=== PATIENT | female | born 1950 | race Caucasian/White ===

== ENCOUNTER 2019-03-27 13:53 | Outpatient (CLI) | payer MEDICARE, SELFPAY ==
--- NOTE | ~2019-03-27 | CT_ITS ---
EXAMINATION: CT brain wo con EXAM DATE: 03/27/2019 14:32 INDICATION: Dizziness. Ataxia. TECHNIQUE: Spiral CT of the head was performed without contrast. Axial, coronal and sagittal images were reviewed. The dose-length product (DLP) for this examination was 605.33 mGy-cm. The exposure w as tailored according to patient size, and iterative reconstruction (ASIR) was used as additional dos e reduction technique. There is no prior study for comparison. FINDINGS: There is no acute intraparenchymal hemorrhage. No evidence of intraparenchymal brain mass lesion. No evidence of acute infarction. There is no mass effect or midline shift. The ventricles are normal in size. There are no extra-axial collections. There are no acute calvarial fractures. T he orbits are unremarkable. Soft tissue is unremarkable. The visualized sinuses and mastoid air lu ls are well aerated. IMPRESSION: 1. Unremarkable head CT examination. Reviewed, dictated and finalized at location B. GAGE CLOSER
== END 2019-03-27 13:54 | disposition home or self-care (01) ==
PROVIDERS: PCP Family Medicine; Visit Provider Physician Assistant
DX: R27.0 Ataxia, unspecified (principal); H81.13 Benign paroxysmal vertigo, bilateral
CPT/HCPCS: 70450

== ENCOUNTER 2019-04-02 11:33 | Emergency (ER) | payer MEDICARE, SELFPAY ==
--- NOTE | ~2019-04-02 | XR_ITS ---
XR chest 2V DATE: 04/02/2019 12:10 INDICATION: Productive cough for 2 weeks. Nonsmoker. TECHNIQUE: 2 views COMPARISON: 04/01/2006 2 view chest FINDINGS: Normal heart size. Aortic arch calcification. No hilar or mediastinal enlargement. There is chronic discoid scarring in the lateral costophrenic angle area, left lung base. No pulmonary in filtrate or consolidation, pulmonary vascular congestion or pleural effusion or pneumothorax. There is diffuse idiopathic skeletal hyperostosis. IMPRESSION: Chronic discoid scarring in the lateral left lung base No active cardiopulmonary disease or significant change since 04/02/2006 Diffuse idiopathic skeletal hyperostosis of the thoracic spine Reviewed, dictated and finalized at location B. TAL ART DIRECTOR
[2019-04-02 11:42] VITALS: BP 134/68; PULSE 76; RESP 16; TEMP 35.9; O2SAT 97
--- NOTE | 2019-04-02 11:56 | ED.URI ---
HPI - URI/Sore Throat General Chief Complaint: Upper Respiratory Infection Stated Complaint: Cough/Mucus/Weakness/ Time Seen by Provider: 04/02/19 11:57 Source: patient and RN notes reviewed Mode of arrival: ambulatory Limitations: no limitations History of Present Illness HPI Narrative: 68 year old female who presents to express care with complaints of 2 week history of productive cough of yellowish mucous, is wheezing and has some dyspnea with exertion. Patient states that she has has history of bronchitis and has used inhaler before, states is nonsmoker with previous history of tobacco use of which cessation was over 35 years ago. Patient had recent hospitalization for cardiac event with cardiac cath performed with no blockages or stents required, has follow up with cardiology on Saturday.Patient denies any chest pain or pressure or any palpitations, no peripheral edema present. MD elicited complaint: cough and rhinorrhea Pertinent past history: pneumonia, seasonal allergies and other (bronchitis) Onset (ago): week(s) (2) Consistency: constant Severity: similar to previous episodes Description of mucous: yellow Able to tolerate fluids by mouth: Yes Exacerbating factors: exertion and deep breaths Relieving factors: nothing Context: recent hospitalization Associated symptoms: rhinorrhea and cough Treatments prior to arrival: other (cough drops) Related Data Home Medications Medication Instructions Recorded Confirmed cetirizine 5 mg-pseudoephedrine ER 1 tablet PO Q12H PRN 01/07/19 03/24/19 120 mg tablet,extended release,12hr cyanocobalamin (vitamin B-12) 1,000 mcg IM .Q2W ml 01/07/19 03/24/19 1,000 mcg/mL injection solution duloxetine 60 mg capsule,delayed 60 mg PO BID 01/07/19 03/24/19 release lamotrigine 100 mg tablet 100 mg PO BID 01/07/19 03/24/19 lorazepam 1 mg tablet 1 mg PO BID PRN 01/07/19 03/24/19 losartan 50 mg tablet 50 mg PO BID 01/07/19 03/24/19 metoprolol succinate 25 mg 12.5 mg PO DAILY tablet 03/24/19 03/24/19 tablet,extended release 24 hr aspirin 04/02/19 buspirone mg 04/02/19 cholecalciferol (vitamin D3) 04/02/19 04/02/19 [Vitamin D3] ezetimibe mg 04/02/19 nitroglycerin mg 04/02/19 Allergies Allergy/AdvReac Type Severity Reaction Status Date / Time codeine Allergy Unknown Dermatitis, Verified 01/29/19 07:06 ITCHING, SHAKEY fentanyl AdvReac Unknown SHAKINESS, Verified 01/29/19 07:06 AGITATION ioversol AdvReac Unknown Dermatitis Verified 01/29/19 07:06 meperidine AdvReac Unknown NAUSEA/VOMI Verified 01/29/19 07:06 TING Contrast Media AdvReac Unknown Unknown Uncoded 01/28/19 08:58 Review of Systems Review of Systems: Narrative: CONSTITUTIONAL: Unknown if fever, chills, or sweats. EYES: Denies visual changes, redness, or discharge. ENT: Positive rhinorrhea, congestion, no sore throat, or otalgia. CARDIOVASCULAR: Denies chest pain, palpitations, or edema. RESPIRATORY: Positive productive cough and dyspnea with exertion GASTROINTESTINAL: Denies abdominal pain, nausea, vomiting, or diarrhea. GENITOURINARY: Denies dysuria or hematuria. SKIN: Denies rash or itching. MUSCULOSKELETAL: states history of back pain, joint pain, or myalgia has arthritis generalized NEUROLOGIC: Denies headache, numbness, or weakness. PSYCHIATRIC:Positive history of anxiety or depression. 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
== END 2019-04-02 12:42 | disposition home or self-care (01) ==
PROVIDERS: Emergency Provider Registered Nurse; PCP Family Medicine
DX: J06.9 Acute upper respiratory infection, unspecified (principal); E11.9 Type 2 diabetes mellitus without complications; E78.5 Hyperlipidemia, unspecified; I10 Essential (primary) hypertension; I51.81 Takotsubo syndrome
CPT/HCPCS: 71046; 99213; G0463

== ENCOUNTER 2020-02-20 06:48 | Outpatient (NON) | payer MEDICARE, SELFPAY ==
[2020-02-20 23:39] LABS: SARS-CoV-2 RNA PCR Positive
== END 2020-02-20 06:49 ==
PROVIDERS: PCP Family Medicine; Visit Provider Family Medicine
DX: U07.1 COVID-19 (principal)
CPT/HCPCS: C9803; U0003

== ENCOUNTER 2020-02-26 13:30 | Outpatient (RCR) | payer MEDICARE, SELFPAY ==
--- NOTE | 2020-02-25 11:55 | PC.NURSE ---
Education and instructions given to patient on Bamlanivimab. Patient has no further questions but was informed to call if any arose.
[2020-02-26] MEDS: FAMOTIDINE 20 MG TABLET PO (13:13)
[2020-02-26] MEDS: diphenhydrAMINE HCl CAP 25 MG CAPSULE PO (13:13)
[2020-02-26] MEDS: ACETAMINOPHEN 325 MG TABLET 650 MG PO (13:13)
[2020-02-26 13:22] VITALS: BP 157/68; PULSE 76; RESP 18; TEMP 36.6; O2SAT 98
[2020-02-26 15:11] VITALS: BP 151/77; PULSE 73; RESP 18; TEMP 37.3; O2SAT 98
--- NOTE | 2020-02-29 14:41 | PC.NURSE ---
Called patient to follow up with after infusion. She stated that the only symptom that she is having is extreme fatigue. Patient she has a follow up appointment with her primary care physician on Saturday.
== END 2020-03-07 11:22 ==
LOC: AMCINF 13:30
PROVIDERS: PCP Family Medicine; Visit Provider Family Medicine
DX: Z23 Encounter for immunization (principal); U07.1 COVID-19; I10 Essential (primary) hypertension; I51.9 Heart disease, unspecified; Z87.891 Personal history of nicotine dependence
CPT/HCPCS: A9270; J7050; M0239; Q0239

== ENCOUNTER 2020-05-31 14:46 | Observation (INO) | payer MEDICARE, SELFPAY ==
[2020-05-31] VITALS (8 sets, daily range): BP systolic 120–153; BP diastolic 56–84; PULSE 64–93; RESP 17–20; TEMP 36.2–36.9; O2SAT 95–100; BMI 35.1
--- NOTE | ~2020-05-31 | CT_ITS ---
EXAMINATION: CT abdomen pelvis wo con DATE: 05/31/2020 16:35 INDICATION: Nausea, vomiting, and diarrhea. TECHNIQUE: Computed tomography (CT) of the abdomen and pelvis was performed without intravenous contr ast. Automated exposure control and iterative reconstruction technique were employed. The dose-length product was 1316.39 mGy-cm. COMPARISON: CT abdomen and pelvis 12/09/2018 FINDINGS: The visualized portions of the lung bases demonstrate mild atelectasis. No pleural effusion . The heart size is normal. There is a small pericardial effusion, stable from 12/09/2018. There is a small sliding hiatal hernia. There is diffuse hepatic steatosis. There is a chronic 11 mm cystic les ion with peripheral calcifications in the spleen, likely benign. The pancreas and adrenal glands are normal. There is an 8 mm cyst in right kidney. Left kidney is normal. There is no urolithiasis. There are no dilated loops of bowel. There is mild wall thickening of ascending colon with surrounding fat stranding, consistent with colitis. There are no pathologically enlarged lymph nodes. There is no fr ee intraperitoneal fluid. There is lumbar levocurvature and severe spondylosis. IMPRESSION: 1. Mild ascending colitis. 2. Small sliding hiatal hernia. 3. Diffuse hepatic steatosis. Reviewed, dictated and finalized at location B.
--- NOTE | 2020-05-31 15:30 | ED.GENADULT ---
HPI - General Adult General Chief complaint: Abdominal Pain Stated complaint: abd pain Time Seen by Provider: 05/31/20 14:59 Source: patient History of Present Illness HPI narrative: Patient is a 69 y/o female complaining right sided abdominal pain starting 3 day ago. She describes her pain as pulling and rates it as 7/10. She states and standing and moving aggravates her pain. She also has some vomiting and diarrhea. She states that she contacted her PCP and was told to come to ED for evaluation of possible diverticulilitis. Related Data Home Medications Medication Instructions Recorded Confirmed aspirin 81 mg PO HS 04/02/19 05/31/20 cholecalciferol (vitamin D3) 125 5,000 unit PO DAILY tablet 06/17/19 05/31/20 mcg (5,000 unit) tablet nitroglycerin 0.4 mg sublingual 0.4 mg SUBLINGUAL Q5M PRN tablet 06/17/19 05/31/20 tablet cariprazine [Vraylar] 1.5 mg PO DAILY 02/26/20 05/31/20 zinc 50 mg PO DAILY 02/26/20 05/31/20 escitalopram oxalate 10 mg tablet 10 mg PO DAILY 04/20/20 05/31/20 duloxetine 60 mg PO DAILY 05/31/20 05/31/20 metoprolol succinate 12.5 mg PO HS 05/31/20 05/31/20 telmisartan 5 mg PO DAILY 05/31/20 05/31/20 Allergies Allergy/AdvReac Type Severity Reaction Status Date / Time codeine Allergy Unknown Dermatitis, Verified 05/31/20 15:09 ITCHING, SHAKEY Iodinated Contrast Media Allergy Unknown Unknown Verified 05/31/20 19:49 fentanyl AdvReac Unknown SHAKINESS, Verified 05/31/20 15:09 AGITATION ioversol AdvReac Unknown Dermatitis Verified 05/31/20 15:09 meperidine AdvReac Unknown NAUSEA/VOMI Verified 05/31/20 15:09 TING Contrast Media AdvReac Unknown Unknown Uncoded 05/31/20 15:09 Review of Systems Constitutional: Constitutional: Denies chills, Denies fever(s), Denies headache(s) and Denies weakness Eyes: Eyes: Denies blurry vision ENT: Denies headache(s) and Denies neck pain Cardiovascular: Cardiovascular: Denies chest pain and Denies dyspnea Respiratory: Respiratory: Denies cough and Denies dyspnea Gastrointestinal: Gastrointestinal: Reports abdominal pain, Reports diarrhea, Reports nausea and Reports vomiting Genitourinary: Genitourinary: Denies hematuria and Denies dysuria Musculoskeletal: Musculoskeletal: Denies back pain and Denies neck pain Neurologic: Denies headache(s) and Denies weakness [facility] Past Medical History Medical History (Updated 05/31/20 @ 22:59 by Lisa Lobo MD) Arthritis Bipolar disorder Chronic anxiety COVID-19 (02/19/20) Diabetes mellitus Patient denies. Dyslipidemia Hepatic steatosis Hypertension Obstructive sleep apnea Moderate sleep apnea on sleep study done in fall 2019. She does not use her CPAP. Seasonal allergies Takotsubo cardiomyopathy Surgical History Surgical History (Updated 05/31/20 @ 21:39 by Luci Pro PA-C) History of appendectomy History of carpal tunnel release of both wrists History of cholecystectomy History of dilation and curettage History of ear surgery History of fundoplication History of hysterectomy for benign disease History of tonsillectomy and adenoidectomy Family History Family History Grandparent Diabetes mellitus, Onset Age: 88 Acute myocardial infarction Mother Family history of elevated blood lipids Family history of cardiovascular disease Family history of cardiac disorder Family history of malignant neoplasm Father Family history of elevated blood lipids, Onset Age: 78 Family history of cardiovascular disease, Onset Age: 78 Family history of malignant neoplasm Sibling Family history of cardiovascular disease Family history of cardiac disorder Family history of malignant neoplasm Family history of chronic obstructive pulmonary disease Social History Social History (Updated 05/31/20 @ 21:43 by Luci Pro PA-C) Social History: Surrogate decision maker: Garret Fish, . Code sta
[2020-05-31 15:34] LABS: Basophils Percent Auto 0.3 % (0.2-1.2); Eosinophils Absolute Auto 0.2 K/mm3 (0-0.3); Eosinophils Percent Auto 1.4 % (0-4.4); Hematocrit 43.1 % (37.0-47.0); Hemoglobin 14.2 g/dL (12.0-15.0); Immature Granulocyte Absolute 0.04 K/mm3 (0.00-0.031); Immature Granulocyte Percent A 0.4 % (0-0.5); Lymphocytes Absolute Auto 2.05 K/mm3 (0.9-3.2); Lymphocytes Percent Auto 19.5 % (18.3-44.2); Mean Corpuscular HGB Conc 32.9 g/dl (32-36); Mean Corpuscular Hemoglobin 30.1 pg (26-34); Mean Corpuscular Volume 91.3 fl (80-100); Mean Platelet Volume 9.7 fl (7.4-10.4); Monocytes Absolute Auto 0.7 K/mm3 (0.1-0.6); Monocytes Percent Auto 6.7 % (2.6-8.5); Neutrophils Absolute Auto 7.5 K/mm3 (1.3-6.7); Neutrophils Percent Auto 71.7 % (45.5-73.1); Platelet Count Result 259 k/mm3 (150-375); Red Blood Count 4.72 M/mm3 (4.2-5.4); White Blood Count 10.5 K/mm3 (4.5-10.0)
[2020-05-31 15:54] LABS: Lipase 26 U/L (23-300)
[2020-05-31 16:15] LABS: Alanine Aminotransferase 50 U/L (4-35); Albumin Level 3.8 g/dL (3.5-5.1); Alkaline Phosphatase 76 U/L (38-126); Anion Gap 3 mmol/L (8-16); Aspartate Amino Transferase 37 U/L (14-36); Bilirubin,Total 0.5 mg/dL (0.2-1.3); Blood Urea Nitrogen 9 mg/dL (7-17); Calcium 8.9 mg/dL (8.4-10.2); Carbon Dioxide 33 mmol/L (22-30); Chloride 104 mmol/L (98-107); Estimated CRCL calculation 59 ml/min; Estimated Glomerular Filt Rate 55; Glucose 105 mg/dL (65-105); Potassium 4.3 mmol/L (3.4-5.0); Sodium 140 mmol/L (137-145)
--- NOTE | 2020-05-31 17:34 | PC.NURSE ---
Amb to BR for clean catch urine collection. Pt has not had any diarrhea since arrival.
[2020-05-31 18:11] LABS: Add Urine Microscopic? YES; Appearance Urine Cloudy (Clear); Bacteria Urine Trace /hpf; Bilirubin Urine Negative (Negative); Blood Urine Negative (Negative); Color Urine Yellow (Yellow); Glucose Urine UA Negative (Negative); Ketones Urine Negative (Negative); Leukocyte Esterase Ur Negative LEU/UL (Negative); Mucus Urine Few /lpf; Nitrate Urine Negative (Negative); Protein Urine Negative (Negative); RBC Urine 0-2 /hpf (0-2); Specific Grav Ur 1.016 (1.001-1.035); Squamous Epithelial Cell Urine Occasional /hpf (Few); WBC Urine 0-3 /hpf
[2020-05-31] MEDS: metroNIDAZOLE 500 MG/ISO 100ML 500 MG/100 ML BAG 100 MG IVPB ×2 (18:17→23:21)
[2020-05-31] MEDS: KETOROLAC 15 MG/ML VIAL (*BKC) IV PUSH (18:17)
--- NOTE | 2020-05-31 18:47 | PC.NURSE ---
Dr. Lobo speaking with Michelle, Hospitalist PA regarding admission.
--- NOTE | 2020-05-31 19:11 | PC.NURSE ---
Report to Lucho BECERRIL, to continue care. Continue to await bed assignment.
[2020-05-31] MEDS: CIPROFLOXACIN 400 MG/D5W 200ML 200 ML 200 MG IVPB (19:16)
--- NOTE | 2020-05-31 19:30 | PM.IMHP ---
H&P: HPI History of Present Illness Date/Time: 05/31/20 19:30 Chief Complaint: Abdominal pain, nausea, vomiting, and diarrhea. Narrative: This is a 69-year-old female with history of takotsubo cardiomyopathy, hypertension, dyslipidemia, GERD, and bipolar disorder who presented to the emergency department earlier today via private vehicle from home for evaluation of abdominal pain, nausea, vomiting, and diarrhea. She reports a gradual onset of diffuse periumbilical abdominal ?spasms? over the past 3 days, and it has since settled more into the right mid and lower quadrant. Associated symptoms include nausea, emesis, and watery brown and mucousy diarrheal stools several times per day. She also reports subjective fever and chills. CT of the abdomen and pelvis showed mild ascending colitis and is being admitted in this setting as she is not feeling much better with IV fluids or antiemetics. She denies sick contacts, recent travel, and recent antibiotic use. No hematemesis, melena, or hematochezia. Review of Systems Review of Systems: Narrative: Twelve systems were reviewed with pertinent positives and negatives as per HPI. She denies sinus congestion, rhinorrhea, otalgia, and odynophagia. No chest pain, pleuritic pain, or shortness of breath. She denies orthopnea, PND, and edema. No dysuria. Except as documented, all other systems were reviewed and are negative. [facility] Past Medical History Medical History (Updated 05/31/20 @ 21:45 by Luci Pro PA-C) Arthritis Bipolar disorder Chronic anxiety COVID-19 (02/19/20) Diabetes mellitus Patient denies. Dyslipidemia Hepatic steatosis Hypertension Obstructive sleep apnea Moderate sleep apnea on sleep study done in fall 2019. She does not use her CPAP. Seasonal allergies Takotsubo cardiomyopathy Surgical History Surgical History (Updated 05/31/20 @ 21:39 by Luci Pro PA-C) History of appendectomy History of carpal tunnel release of both wrists History of cholecystectomy History of dilation and curettage History of ear surgery History of fundoplication History of hysterectomy for benign disease History of tonsillectomy and adenoidectomy Family History Family History Grandparent Diabetes mellitus, Onset Age: 88 Acute myocardial infarction Mother Family history of elevated blood lipids Family history of cardiovascular disease Family history of cardiac disorder Family history of malignant neoplasm Father Family history of elevated blood lipids, Onset Age: 78 Family history of cardiovascular disease, Onset Age: 78 Family history of malignant neoplasm Sibling Family history of cardiovascular disease Family history of cardiac disorder Family history of malignant neoplasm Family history of chronic obstructive pulmonary disease Social History Social History (Updated 05/31/20 @ 21:43 by Luci Pro PA-C) Social History: Surrogate decision maker: Garret Fish, . Code status: Full code. Smoking packs per day: 2.5 Smoking cigarettes per day: 50.0 Years smoked: 25 Smoking pack-years: 62.50 Smoking status: Former smoker Tobacco type: cigarettes Second hand tobacco smoke exposure: No Alcohol intake: former Substance use: never Additional living arrangements comments: The patient lives in [place] with her . 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 Gender identity (if verbalized by the patient): Female Spiritual care concerns: No Meds Home Medications and Allergies Home Medications Medication Instructions Recorded Confirmed Type aspirin 81 mg PO HS 04/02/19 05/31/20 History buspirone 15 mg tablet 15 mg PO . t.i.d. #270 tablet 06/17/19 05/31/20 Rx cholecalciferol (vitamin D3) 125 5,000 unit PO DAILY tablet 06/17/19 05/31/20 History mcg (5,000 unit) tablet lamotrigine 100 mg ta
--- NOTE | 2020-05-31 21:52 | ECG_ITS ---
Measurements Intervals [place] Rate: 68 P: 62 KS: 154 QRS: 13 QRSD: 99 T: 73 QT: 409 QTc: 437 Interpretive Statements SINUS RHYTHM LOW QRS VOLTAGE IN PRECORDIAL LEADS BORDERLINE ECG Electronically Signed On 06-01-2020 7:17:39 CDT by Maximo Dodge D.O.
[2020-05-31] MEDS: LORazepam (*CRX) 1 MG TABLET PO (23:20)
[2020-05-31] MEDS: PANTOPRAZOLE 40 MG TABLET PO (23:20)
[2020-05-31] MEDS: ASPIRIN 81 MG ENTERIC TABLET PO (23:20)
[2020-05-31] MEDS: METOPROLOL SUCCINATE EXT REL 12.5 MG TABCR PO (23:21)
[2020-05-31] MEDS: SODIUM CHLORIDE 0.9% IV 1,000 ML 100 ML IV CONT (23:21)
[2020-06-01] VITALS (7 sets, daily range): BP systolic 112–123; BP diastolic 48–58; PULSE 64–78; RESP 16–20; TEMP 36.4–37.2; O2SAT 94–98
[2020-06-01] MEDS: ACETAMINOPHEN 325 MG TABLET 650 MG PO ×3 (00:09→15:36)
[2020-06-01] MEDS: ESCITALOPRAM OXALATE 10 MG TABLET PO ×2 (00:09→21:11)
[2020-06-01] MEDS: metroNIDAZOLE 500 MG/ISO 100ML 500 MG/100 ML BAG 100 MG IVPB ×3 (06:07→21:11)
[2020-06-01] MEDS: CIPROFLOXACIN 400 MG/D5W 200ML 200 ML 200 MG IVPB ×2 (06:18→18:14)
[2020-06-01 06:28] LABS: Hematocrit 42.2 % (37.0-47.0); Hemoglobin 13.8 g/dL (12.0-15.0); Mean Corpuscular HGB Conc 32.7 g/dl (32-36); Mean Corpuscular Hemoglobin 30.1 pg (26-34); Mean Corpuscular Volume 92.1 fl (80-100); Mean Platelet Volume 9.6 fl (7.4-10.4); Platelet Count Result 221 k/mm3 (150-375); Red Blood Count 4.58 M/mm3 (4.2-5.4); Red Cell Distribution Width 12.8 % (11.5-14.5)
[2020-06-01 06:43] LABS: Alanine Aminotransferase 42 U/L (4-35); Albumin Level 3.4 g/dL (3.5-5.1); Alkaline Phosphatase 70 U/L (38-126); Anion Gap 4 mmol/L (8-16); Aspartate Amino Transferase 30 U/L (14-36); Bilirubin,Total 0.4 mg/dL (0.2-1.3); Blood Urea Nitrogen 12 mg/dL (7-17); CRP 2.6 mg/dL (<1.0); Calcium 8.8 mg/dL (8.4-10.2); Carbon Dioxide 29 mmol/L (22-30); Chloride 106 mmol/L (98-107); Estimated CRCL calculation 59 ml/min; Estimated Glomerular Filt Rate 55; Glucose 100 mg/dL (65-105); Magnesium 1.9 mg/dL (1.6-2.3); Potassium 3.8 mmol/L (3.4-5.0); Sodium 139 mmol/L (137-145)
[2020-06-01] MEDS: busPIRone HCL 5 MG TABLET 15 MG PO ×2 (08:56→18:14)
[2020-06-01] MEDS: ZINC SULFATE 220 MG CAPSULE PO (08:57)
[2020-06-01] MEDS: SIMVASTATIN 20 MG TABLET 40 MG PO (08:57)
[2020-06-01] MEDS: DULoxetine HCL 60 MG CAPSULE.DR PO (08:57)
[2020-06-01] MEDS: lamoTRIgine 100 MG TABLET PO ×2 (08:57→18:14)
[2020-06-01] MEDS: CHOLECALCIFEROL 1,000 UNITS TABLET 5000 UNITS PO (08:57)
[2020-06-01] MEDS: ENOXAPARIN 40 MG/0.4 ML SYRINGE SUB-Q (08:58)
[2020-06-01] MEDS: PANTOPRAZOLE 40 MG TABLET PO ×2 (10:03→21:11)
--- NOTE | 2020-06-01 11:13 | PM.IMPN ---
Progress Note: A&P Assessment and Plan (1) Colitis: Code(s): K52.9 - Noninfective gastroenteritis and colitis, unspecified Status: Acute Assessment and Plan: Mild ascending colitis noted on CT. She was started on ciprofloxacin and metronidazole in the emergency department. Stool studies have been ordered but uncollected. Pain is persistent today. Tolerating a diet, however. Continue IV cipro and flagyl for now D/c IV fluids as to not fluid overload and diarrhea has improved Await stool studies to be collected Monitor overnight (2) Elevated LFTs: Code(s): R79.89 - Other specified abnormal findings of blood chemistry Status: Acute Assessment and Plan: Mild elevation, likely due to diffuse hepatic steatosis noted on imaging today. F/u with PCP (3) Bipolar disorder: Code(s): F31.9 - Bipolar disorder, unspecified Status: Inactive Assessment and Plan: No acute issues. Continue home medications. (4) Chronic anxiety: Code(s): F41.9 - Anxiety disorder, unspecified Status: Acute Assessment and Plan: No acute issues. Continue home medications. (5) Hypertension: Code(s): I10 - Essential (primary) hypertension Status: Acute Assessment and Plan: BP 110s sys most recently Continue antihypertensives and monitor. (6) Dyslipidemia: Code(s): E78.5 - Hyperlipidemia, unspecified Status: Acute Assessment and Plan: LFTs are only mildly elevated as above. LFTs are only mildly elevated as above. Subjective Date/time seen: 06/01/20 11:13 Interval history: Patient is a 69 yo F with history of takotsubo cardiomyopathy, hypertension, dyslipidemia, GERD, and bipolar disorder who is seen in follow up for mild colitis. Patient states her pain still persists today although her diarrhea has improved today with last BM yesterday; no blood/melena. Pain is usually 7/10 at its worse; worse with standing, relieved with rest. She is tolerating her diet thus far. No other complaints at the moment. Denies f/c/s, headaches, dizziness, lightheadedness, cp/palpitations, sob/cough, n/v, dysuria, hematuria, cloudy urine, calf pain/swelling. Review of Systems Review of Systems: All systems reviewed & are unremarkable except as noted in HPI and below Exam Narrative: Exam Narrative: General: Patient resting on right side in bed in no acute distress. HEENT: Normocephalic, EOMI, oral mucosa moist. Cardiovascular: Rate and rhythm are regular. No notable murmur, rub, or gallop. Respiratory: Lungs clear to auscultation all shelley. Non-labored breathing. Abdomen: Soft, TTP on right side abdomen particularly RLQ, no guarding, non-distended, bowel sounds present. Extremities: Peripheral pulses intact. No edema. NTTP b/l calves Neuro: No focal neurological deficits. Speech is clear. Objective Data Vital Signs Vital Signs: Last Vital Signs Temp 97.9 F 06/01/20 05:36 Pulse 64 06/01/20 05:36 Resp 18 06/01/20 05:36 BP 112/49 L 06/01/20 05:36 Pulse Ox 98 06/01/20 08:27 Intake/Output Intake/Output: Intake & Output 05/29/20 05/30/20 05/31/20 06/01/20 23:59 23:59 23:59 23:59 Intake Total 300 830 Output Total 400 Balance 300 430 Meds/Results Medications: Active Medications Generic Name Dose Route Start Last Admin Trade Name Freq PRN Reason Stop Dose Admin Acetaminophen 650 mg 05/31/20 23:46 06/01/20 06:17 Acetaminophen 325 Mg Tablet PO 650 mg Q6H PRN Administration Mild Pain (1-3) or Fever Aspirin 81 mg 05/31/20 21:00 05/31/20 23:20 Aspirin 81 Mg Enteric Tablet PO 81 mg HS DONTE Administration Buspirone HCl 15 mg 06/01/20 09:00 06/01/20 08:56
[2020-06-01] MEDS: ASPIRIN 81 MG ENTERIC TABLET PO (21:11)
[2020-06-01] MEDS: METOPROLOL SUCCINATE EXT REL 12.5 MG TABCR PO (21:11)
[2020-06-02 05:34] VITALS: BP 114/50; PULSE 64; RESP 18; TEMP 36.9; O2SAT 96
[2020-06-02] MEDS: metroNIDAZOLE 500 MG/ISO 100ML 500 MG/100 ML BAG 100 MG IVPB (06:02)
[2020-06-02] MEDS: CIPROFLOXACIN 400 MG/D5W 200ML 200 ML 200 MG IVPB (06:02)
[2020-06-02 06:12] LABS: Basophils Absolute Auto 0.1 K/mm3 (0.0-0.1); Basophils Percent Auto 0.9 % (0.2-1.2); Eosinophils Absolute Auto 0.3 K/mm3 (0-0.3); Eosinophils Percent Auto 3.9 % (0-4.4); Hematocrit 40.7 % (37.0-47.0); Hemoglobin 13.3 g/dL (12.0-15.0); Immature Granulocyte Absolute 0.03 K/mm3 (0.00-0.031); Immature Granulocyte Percent A 0.5 % (0-0.5); Lymphocytes Absolute Auto 1.79 K/mm3 (0.9-3.2); Lymphocytes Percent Auto 26.9 % (18.3-44.2); Mean Corpuscular HGB Conc 32.7 g/dl (32-36); Mean Corpuscular Volume 91.9 fl (80-100); Mean Platelet Volume 9.8 fl (7.4-10.4); Monocytes Absolute Auto 0.6 K/mm3 (0.1-0.6); Monocytes Percent Auto 9.5 % (2.6-8.5); Neutrophils Absolute Auto 3.9 K/mm3 (1.3-6.7); Neutrophils Percent Auto 58.3 % (45.5-73.1); Platelet Count Result 250 k/mm3 (150-375); Red Blood Count 4.43 M/mm3 (4.2-5.4); Red Cell Distribution Width 12.7 % (11.5-14.5); White Blood Count 6.7 K/mm3 (4.5-10.0)
[2020-06-02 06:40] LABS: Alanine Aminotransferase 39 U/L (4-35); Albumin Level 3.5 g/dL (3.5-5.1); Alkaline Phosphatase 70 U/L (38-126); Anion Gap 3 mmol/L (8-16); Aspartate Amino Transferase 28 U/L (14-36); Bilirubin,Total 0.3 mg/dL (0.2-1.3); Blood Urea Nitrogen 9 mg/dL (7-17); Calcium 8.9 mg/dL (8.4-10.2); Carbon Dioxide 30 mmol/L (22-30); Chloride 108 mmol/L (98-107); Estimated CRCL calculation 59 ml/min; Estimated Glomerular Filt Rate 55; Glucose 100 mg/dL (65-105); Magnesium 1.9 mg/dL (1.6-2.3); Potassium 4.7 mmol/L (3.4-5.0); Sodium 141 mmol/L (137-145)
[2020-06-02] MEDS: ACETAMINOPHEN 325 MG TABLET 650 MG PO (06:47)
[2020-06-02] MEDS: DULoxetine HCL 60 MG CAPSULE.DR PO (09:11)
[2020-06-02] MEDS: CHOLECALCIFEROL 1,000 UNITS TABLET 5000 UNITS PO (09:11)
[2020-06-02] MEDS: busPIRone HCL 5 MG TABLET 15 MG PO (09:14)
[2020-06-02] MEDS: ENOXAPARIN 40 MG/0.4 ML SYRINGE SUB-Q (09:14)
[2020-06-02] MEDS: lamoTRIgine 100 MG TABLET PO (09:15)
[2020-06-02] MEDS: SIMVASTATIN 20 MG TABLET 40 MG PO (09:15)
[2020-06-02] MEDS: PANTOPRAZOLE 40 MG TABLET PO (09:15)
[2020-06-02] MEDS: ZINC SULFATE 220 MG CAPSULE PO (09:16)
--- NOTE | 2020-06-02 09:46 | PM.DS ---
DS: Admitting Diagnosis Admitting Diagnosis Admitting Diagnosis: Ascending colitis DS: Discharge Diagnosis Discharge Diagnosis (1) Colitis: Code(s): K52.9 - Noninfective gastroenteritis and colitis, unspecified Status: Acute Assessment and Plan: Mild ascending colitis noted on CT. She was started on ciprofloxacin and metronidazole in the emergency department. Stool studies pending. Pain is better today; comfortabl with discharge today. Reports itching and rash that has been associated with the Cipro doses since her first dose in ER, but I am just learning this now; will switch to PO cefdinir today. Tolerating a diet Stop IV cipro; placed on allergy list Start PO cefdinir today and transition to PO flagyl this afternoon. Given the mild nature of colitis and improvement of symptoms, will continue through 06/07 to complete 7 total days of antibiotics with instructions to contact PCP if no clinical improvement or if symptoms worsen. F/u with PCP in 1-2 weeks Follow stool studies (2) Elevated LFTs: Code(s): R79.89 - Other specified abnormal findings of blood chemistry Status: Acute Assessment and Plan: Mild elevation, likely due to diffuse hepatic steatosis noted on imaging today. F/u with PCP. She understands to have this monitored (3) Bipolar disorder: Code(s): F31.9 - Bipolar disorder, unspecified Status: Inactive Assessment and Plan: No acute issues. Continue home medications. (4) Chronic anxiety: Code(s): F41.9 - Anxiety disorder, unspecified Status: Acute Assessment and Plan: No acute issues. Continue home medications. (5) Hypertension: Code(s): I10 - Essential (primary) hypertension Status: Acute Assessment and Plan: BP 110s sys most recently Continue antihypertensives and monitor. (6) Dyslipidemia: Code(s): E78.5 - Hyperlipidemia, unspecified Status: Acute Assessment and Plan: LFTs are only mildly elevated as above. continue statin (7) Rash due to allergy: Code(s): T78.40XA - Allergy, unspecified, initial encounter; R21 - Rash and other nonspecific skin eruption Status: Acute Assessment and Plan: Patient reports having itching associated with every Cipro dose since ED visit, but I am just now aware. Left arm near infusion site has a mild reticular erythematous rash in the AC fossa and medial/distal aspect of upper arm; no warmth, edema, TTP. No other issues such as tongue swelling, difficulty breathing/swallowing, SOB, etc. Stop Cipro; added to allergy list Benadryl 25 mg PO once now Monitor until this afternoon; if improved then discharge later DS: Summary Hospital Course Reason for hospitalization: Mild ascending colitis Hospital Course: Date of arrival: 05/31/20 Date of discharge: 06/02/20 Patient is a 69-year-old female with history of takotsubo cardiomyopathy, hypertension, dyslipidemia, GERD, and bipolar disorder who presented to the emergency department on 05/31 via private vehicle from home for evaluation of abdominal pain, nausea, vomiting, and diarrhea. While in the ED, Ct abd/pelvis revealed mild ascending colitis. She had mild leukocytosis. She was placed on Cipro and Flagyl from the ED. Patient admitted to the hospitalist service under this setting for further management/treatment. Please see H&P for further details. After admission, Stool studies were collected (negative for cryptosporidium atg, giardia; others pending). She continued on Cipro and Flagyl with improvement in her symptoms by day of discharge. Patient reported itching and rash on her arm associated with all of her cipro infusions on d
[2020-06-02 10:00] VITALS: BP 146/57; PULSE 70; RESP 16; TEMP 36.4; O2SAT 97
[2020-06-02] MEDS: diphenhydrAMINE HCl CAP 25 MG CAPSULE PO (10:22)
--- NOTE | 2020-06-02 12:13 | PC.NURSE ---
IV Ciprofloxacin stopped at 1000 r/t being reddened at IV site and upper arm and itching. Miguel Angel Nicole made aware. Ciprofloxacin added to allergy list. Vital signs taken and stable. Patient denies any respiratory complaints. LCTA. Denies any pain or discomfort aside from itching.
[2020-06-02] MEDS: metroNIDAZOLE 250 MG TABLET 500 MG PO (12:34)
[2020-06-02] MEDS: CEFDINIR 300 MG CAPSULE PO (12:35)
== END 2020-06-02 14:10 | disposition home or self-care (01) ==
LOC: ANHED 18:54 → ANH3MEDSUR 19:36
PROVIDERS: Physician Assistant; Admitting Provider Family Medicine; Emergency Provider Emergency Medicine; PCP Family Medicine; Visit Provider Physician Assistant
DX: K52.9 Noninfective gastroenteritis and colitis, unspecified (principal); R79.89 Other specified abnormal findings of blood chemistry; L27.1 Localized skin eruption due to drugs and medicaments taken internally; T36.8X5A Adverse effect of other systemic antibiotics, initial encounter; F31.9 Bipolar disorder, unspecified; F41.9 Anxiety disorder, unspecified; K44.9 Diaphragmatic hernia without obstruction or gangrene; I10 Essential (primary) hypertension; E78.5 Hyperlipidemia, unspecified; G47.33 Obstructive sleep apnea (adult) (pediatric); I51.81 Takotsubo syndrome; K21.9 Gastro-esophageal reflux disease without esophagitis; K76.0 Fatty (change of) liver, not elsewhere classified; Z86.16 Personal history of COVID-19; Z87.891 Personal history of nicotine dependence; Z79.82 Long term (current) use of aspirin
CPT/HCPCS: 36415; 74176; 80053; 81001; 83690; 83735; 85025; 85027; 86140; 87015; 87045; 87046; 87269; 87272; 87427; 93005; 96365; 96366; 96367; 96372; 96375; 96376; 99285; A9270; G0378; J0744; J1650; J1885; J7030

== ENCOUNTER → 2021-03-22 02:14 | Outpatient (CLI) | payer MEDICARE, SELFPAY ==
[2021-03-22 16:42] LABS: SARS-CoV-2 RNA PCR Negative
== END ==
PROVIDERS: PCP Family Medicine; Visit Provider Family Medicine
DX: J01.90 Acute sinusitis, unspecified (principal); Z20.822 Contact with and (suspected) exposure to COVID-19
CPT/HCPCS: C9803; U0003; U0005

== ENCOUNTER 2022-01-16 12:32 | Outpatient (CLI) | payer MEDICARE, SELFPAY ==
--- NOTE | ~2022-01-16 | XR_ITS ---
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 RESULT: Lines, tubes, and devices: None. Lungs and pleura: Mild left costophrenic angle blunting with multifocal adjacent peripheral centrilo bular and tree-in-bud opacities. Cardiomediastinal silhouette: Stable. Other: No acute osseous or upper abdominal finding. IMPRESSION: Left peripheral and basilar opacities may reflect infection, bronchitis, or pneumonitis. Small left p leural effusion. Reviewed, dictated and finalized at [facility]. NCE MANAGEMENT CONSULTANT IMPRESSION: Left peripheral and basilar opacities may reflect infection, bronchitis, or pne umonitis. Small left pleural effusion.
== END 2022-01-16 12:33 | disposition home or self-care (01) ==
PROVIDERS: PCP Family Medicine; Visit Provider Family Medicine
DX: J20.9 Acute bronchitis, unspecified (principal); J90 Pleural effusion, not elsewhere classified
CPT/HCPCS: 71046

== ENCOUNTER → 2022-07-30 11:37 | Outpatient (CLI) | payer MEDICARE, SELFPAY ==
--- NOTE | ~2022-07-30 | XR_ITS ---
[id number] DATE: 07/30/2022 11:54 INDICATION: Right pleurodynia TECHNIQUE: PA chest. 3 views of the right ribs. COMPARISON: 01/16/2022 2 view chest FINDINGS: Normal heart size. Aortic arch calcification. No hilar or mediastinal enlargement is detect ed. No pulmonary infiltrate or consolidation, pleural effusion or pulmonary vascular congestion or pn eumothorax. No right rib fracture or bone destruction is detected. There is diffuse idiopathic skeletal hyperostosis of the thoracolumbar spine. Osteopenia. IMPRESSION: No right rib fracture Diffuse idiopathic skeletal hyperostosis of the thoracolumbar spine Osteopenia. Aortic calcification Reviewed, dictated and finalized at [facility]. Reviewed, dictated and finalized at [facility].
== END ==
PROVIDERS: PCP Family Medicine; Visit Provider Family Medicine
DX: R07.81 Pleurodynia (principal); M85.88 Other specified disorders of bone density and structure, other site; I70.0 Atherosclerosis of aorta
CPT/HCPCS: 71101

== ENCOUNTER 2024-07-10 01:05 | Day surgery (SDC) | payer MEDICARE, SELFPAY ==
[2024-06-29 15:02] VITALS: BMI 34.2
--- OUTSIDE RECORDS SUMMARY | 2024-07-10 01:08 | XMS_ITS | Continuity of Care Document ---
Author Organization [facility] Address [address] [place] [address] Phone Care Team Providers Care Foster Parent Name Role Phone Gómez Veliz DO Unavailable Unavailable Advance Directives Directive Yes / No Effective Date File Name No Information Encounters Encounter Description Practice Location Reason(s) For Visit Diagnoses Date Provider Providers Copied on Encounter [facility], [address], [place], [place], [id number], [place] tel:[phone] [facility][note 3] No Information Jose Alfredo Wilhelm. [address] [facility], [place], [address], [place]. tel: [phone] Family History Family Member Type Diagnosis Age At Onset No Information Payers Payer name Insurance type Covered republican ID Authoriza tion(s) [place] [id number] Social History Type Description Quantity Date Captured [...]
--- OUTSIDE RECORDS SUMMARY | 2024-07-10 01:08 | XMS_ITS | Data Portability ---
Author Organization [place] - [facility] [employer], Main Office Address [address] [place] [address] Assessment Encounter Date Assessment Date Assessment LastModified by Organization Details LastModified Time 05/19/2024 05/19/2024 Time spent with patient included: preparing to see patient by reviewing tests, obtaining and reviewing history, medical examination and evaluation, counseling and educating the patient, ordering medications and tests, documenting clinical information in EHR, independently interpreting results and communicating results to the patient for a total of 46 minutes. Not available 05/19/2024 10:56:11 06/08/2024 06/08/2024 Time spent with patient included: preparing to see patient by reviewing tests, obtaining and reviewing history, medical examination and evaluation, counseling and educating the patient, ordering medications and tests, documenting clinical information in EHR, independently interpreting results and communicating results to the patient for a total of 37 minutes. Not available 06/08/2024 12:18:17 Plan of Treatment Reminders Order Date Submit Date Provider Last Modified By Organization Details Last Modified Time Details Appointments Any 15 2024 10:30A Emily Daly NP Not available Not available Not available Lab alpha-1-a ntitrypsi n (aat) phenotype , serum 2024 025 [facility] (Lab), [address] [place], [address], 05/30/2024 09:17:55 BNP (B-type natriuret ic peptide), serum or plasma 2024 025 [facility] (Lab), [address] [place], [address], 05/19/2024 15:05:46 ige, total, serum [address] (Lab), [address] [place], [address], 06/04/2024 09:55:18 tb (M tuberculo sis), ifn-gamma bry, blood [address] (Lab), [address] [place], [address], 06/04/2024 09:55:[address] 1+2+3+4, serum [address] (Lab), [address] [place], [address], 06/04/2024 09:55:19 respirato ry allergen panel, [facility] A, serum [address] (Lab), [address] [place], [address], 06/04/2024 09:55:19 respirato ry allergen panel - [facility] b [address] (Lab), [address] [place], [address], 06/04/2024 09:55:19 eosinophi ls, quant, blood [address] (Lab), [address] [place], [address], 06/04/2024 09:55:19 Referral None recorded. Procedures None recorded. Surgeries None recorded. Imaging LDCT, chest, for lung cancer screening 2024 025 [email or web address] [facility] ([facility]), [address] [place], [address], 06/10/2024 14:07:12 XR, chest, 2 view 2024 025 JAMEEL Not available 05/19/2024 15:37:03 Medication Orders Dulera 100 mcg-5 mcg/actua tion HFA aerosol inhaler 2024 025 [place] [address] [id number], [address], [place], [address], 06/23/2024 17:55:58 Patient TargetsNo targets recorded. Patient Instructions Encounter Date Encounter Id Patient Instructions Last Modified By Organization Details Last Modified Time 05/19/2024 [id number] complete PFT w/ post bronchodilator spirometry* - Please call patient to schedule. ALEXI [id number] per Availity. JAMEEL Not available 06/04/2024 12:31:32 Reason for Referral None Reported. Results Created Date Observation Date Name Description Value Unit Range Abnormal Flag Note LastModifiedBy Organization Detail LastModifiedTime 05/20/19 25 07/30/2022 XR, chest No observ ation record ed. BARCODE Not Available 2024 09:29:01 05/20/19 25 01/16/2022 XR, chest , 2 view No observ ation record ed. BARCODE Not Available 2024 09:29:01 05/20/19 25 05/19/2024 XR, chest , 2 view No observ ation record ed. [facility] [address] [place], [address], 05/21/2024 12:18:26 06/05/19 25 06/03/2024 compl ete PFT w/ post [facility] * No observ ation record ed. [address] ([facility]) [address] [place], [address], 06/08/2024 10:11:32 06/05/19 25 06/03/2024 compl ete PFT w/ post [facility] * No observ ation record ed. [address] ([facility]) [address] [place], [address], 06/08/2024 10:11:33 06/05/19 25 06/03/2024 compl ete PFT w/ post [facility] * No observ ation record ed. [address] ([facility]) [address] [place], [address], 06/08/2024 10:11:34 07/02/19 25 07/01/2024 CT, chest , w/o contr ast No observ ation record ed. [address] [place], [address], 07/09/2024 08:30:54 Result Notes None recorded. Problems Name Problem SNOMED Code Status Onset Date Resolution Date Notes Provider Name and Address Organization Details Recorded Time Current tear of medial cartilage AND/OR meniscus of knee Active Not Available [facility] 3 12:52:31 Current tear of lateral cartilage AND/OR meniscus of knee Active Not Available [facility] 3 12:52:31 Obstructive sleep apnea syndrome 22164403 Active Not Available [facility] 3 12:52:31 Gastro-esopha geal reflux disease with esophagitis 198587408 Active 2024 Nery Daly NP [address] [facility], [place], [address] , Group [facility] 5 10:54:33 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 Medical Equipment None Reported. Allergies Allergen ID Allergen Name Allergen Category Reaction Reaction Severity Criticality Documentation Date Start Date Code Code System Note Provider Name and Address Organization Details Recorded Time 55848 fentanyl medicatio n Not available Not available Not available 04/11/2022 4337 RxNorm Not Available [facility] 3 12:56:49 51330 Demerol medicatio n Not available Not available Not available 04/11/2022 06310 1 RxNorm Not Available [facility] 3 12:56:49 34078 codeine medicatio n Not available Not available Not available 04/11/2022 2670 RxNorm Not Available [facility] 3 12:56:49 Medications Name Sig Start Date Stop Date Status Note LastModified by Organization Details LastModified Time losartan 50 mg tablet 05/19 completed Not Available Not Available Not Available amoxicillin 500 mg capsule 11/27 completed Not Available Not Available Not Available lamotrigine 150 mg tablet Take 1 tablet twice a day by oral route. active Not Available Not Available No t Available prednisone 10 mg tablet 05/19 completed Not Available Not Available Not Available azithromyci n 250 mg tablet TAKE 2 TABLETS BY MOUTH TODAY, THEN TAKE 1 TABLET DAILY FOR 4 DAYS DIRECTED 05/19 completed Not Available Not Available Not Available fluconazole 150 mg tablet TAKE 1 DOSE NOW AND THEN REPEAT IN 1 WEEK ONCE A SINGLE DOSE 05/19 completed Not Available Not Available Not Available clarithromy andrea 500 mg tablet active Not Available Not Available Not Available meloxicam 15 mg tablet 11/19 completed Not Available Not Available Not Available phenazopyri dine 200 mg tablet TAKE 1 TABLET BY MOUTH EVERY 8 HOURS NEEDED 05/19 completed Not Available Not Available Not Available prednisone 20 mg tablet TAKE 1 TABLET BY MOUTH EVERY DAY 05/19 completed Not Available Not Available Not Available clindamycin HCl 150 mg capsule active Not Available Not Available Not Available Nexium 40 mg capsule,del ayed release Take 1 capsule every day by oral route as directed. 06/04 completed Not Available Not Available Not Available chlorthalid one 25 mg tablet TAKE ONE TABLET DAILY 11/19 completed Not Available Not Available Not Available ciprofloxac in 500 mg tablet 11/27 completed Not Available Not Available Not Available aspirin 81 mg tablet,yoly yed release TAKE ONE TABLET DAILY active Not Available Not Available No t Available simvastatin 40 mg tablet 05/19 completed Not Available Not Available Not Available lorazepam 0.5 mg tablet 06/04 completed Not Available Not Available Not Available Kenalog 10 mg/mL suspension for injection In office injection administe red by the provider 06/03 completed [facility]: 0003- 0494- 20 Not Available Not Available Not Available hydrocodone 7.5 mg-acetamin ophen 325 mg tablet active Not Available Not Available No t Available cyanocobala min (vit B-12) 1,000 mcg/mL injection solution INJECT THE CONTENTS OF 1 VIAL INTRAMUSC ULARLY EVERY 2 WEEKS active Not Available Not Available No t Available nystatin 100,000 unit/gram topical cream 06/04 completed Not Available Not Available Not Available buspirone 10 mg tablet Take 1 tablet twice a day by oral route. active Not Available Not Available No t Available lansoprazol e 30 mg capsule,del ayed release Take 1 capsule twice a day by oral route. active Not Available Not Available No t Available nystatin-tr iamcinolone 100,000 unit/g-0.1 % topical cream APPLY TOPICALLY TWICE A DAY NEEDED FOR RASH 05/19 completed Not Available Not Available Not Available BD Luer-Werner Syringe 3 mL 25 gauge x 1 WITH CYNOCOBAL LEE INJECTION S TWICE A MONTH 11/27 completed Not Available Not Available Not Available telmisartan 20 mg tablet TAKE 1 TABLET BY MOUTH DAILY 05/19 completed Not Available Not Available Not Available gabapentin 100 mg capsule active Not Available Not Available Not Available lorazepam 1 mg tablet TAKE 1 TABLET BY MOUTH TWICE DAILY NEEDED FOR ANXIETY active Not Available Not Available No t Available cefuroxime axetil 500 mg tablet TAKE ONE TABLET TWICE DAILY UNTIL ALL TAKEN 11/19 completed Not Available Not Available Not Available levofloxaci n 500 mg tablet active Not Available Not Available Not Available methylpredn isolone 4 mg tablets in a dose pack active Not Available Not Available Not Available albuterol sulfate HFA 90 mcg/actuati on aerosol inhaler INHALE 2 PUFFS BY MOUTH 4 TIMES DAILY NEEDED FOR SHORTNESS OF BREATH/WH EEZING active Not Available Not Available No t Available cefdinir 300 mg capsule TAKE 1 CAPSULE BY MOUTH EVERY 12 HOURS 05/19 completed Not Available Not Available Not Available losartan 100 mg tablet TAKE ONE TABLET DAILY 11/19 completed Not Available Not Available Not Available doxycycline hyclate 100 mg tablet TAKE 1 TABLET BY MOUTH EVERY 12 HOURS 05/19 completed Not Available Not Available Not Available lamotrigine 100 mg tablet TAKE TWO TABLETS TWICE DAILY 11/19 completed Not Available Not Available Not Available amoxicillin 875 mg-potassiu m clavulanate 125 mg tablet active Not Available Not Available Not Available buspirone 15 mg tablet TAKE ONE TABLET 3 TIMES DAILY 11/19 completed Not Available Not Available Not Available Low Dose Aspirin 81 mg tablet,yoly yed release Take 1 tablet every day by oral route as directed. 05/19 completed Not Available Not Available Not Available escitalopra m 20 mg tablet Take 1 tablet every day by oral route. active Not Available Not Available No t Available ezetimibe 10 mg tablet 05/19 completed Not Available Not Available Not Available rosuvastati n 10 mg tablet 11/19 completed Not Available Not Available Not Available rosuvastati n 40 mg tablet Take 1 tablet every day by oral route. active Not Available Not Available No t Available nitrofurant oin monohydrate /macrocryst als 100 mg capsule TAKE 1 CAPSULE BY MOUTH TWICE A DAY 05/19 completed Not Available Not Available Not Available BD Integra Syringe 3 mL 23 gauge x 1 USE WITH VITAMIN B12 INJECTION S EVERY 2 WEEKS active Not Available Not Available No t Available duloxetine 30 mg capsule,del ayed release TAKE 1 CAPSULE DAILY 11/19 completed Not Available Not Available Not Available duloxetine 60 mg capsule,del ayed release 11/19 completed Not Available Not Available Not Available BuSpar 05/19 completed Not Available Not Available Not Available Cymbalta Take 1 30 capsule daily 06/04 completed Not Available Not Available Not Available lidocaine (PF) 10 mg/mL (1 %) injection solution In office injection administe red by the provider 06/03 completed [facility]: 0409- 4276- 17 Not Available Not Available Not Available Symbicort 160 mcg-4.5 mcg/actuati on HFA aerosol inhaler Inhale 2 puffs twice a day by inhalatio n route for 30 days. 06/04 completed Not Available Not Available Not Available Symbicort 80 mcg-4.5 mcg/actuati on HFA aerosol inhaler Inhale 2 puffs twice a day by inhalatio n route. 2024 active Not Available Not Available Not Avai lable Prevnar 13 (PF) 0.5 mL intramuscul ar syringe ADM 0.5ML IM UTD 05/19 completed Not Available Not Available Not Available Dexilant 60 mg capsule, delayed release 11/19 completed Not Available Not Available Not Available Vitamin D3 125 mcg (5,000 unit) tablet TAKE ONE TABLET DAILY 2024 active Not Available Not Available Not Avai lable Dulera 100 mcg-5 mcg/actuati on HFA aerosol inhaler Inhale 2 puffs twice a day by inhalatio n route. 06/23 completed Not Available Not Available Not Available metoprolol succinate ER 25 mg capsule sprinkle, ext. release 24 hr Take 1 capsule every day by oral route. active Not Available Not Available No t Available Wixela Inhub 100 mcg-50 mcg/dose powder for inhalation Inhale 1 puff twice a day by inhalatio n route. 06/23 completed Not Available Not Available Not Available Fluzone High-Dose 2019-20 (PF) 180 mcg/0.5 mL intramuscul ar syringe IMMUN 05/19 completed Not Available Not Available Not Available Vitals Date Recorded Body weight Body mass index (BMI) Body height Body temperature Heart rate Oxygen saturation Oxygen saturation in Arterial blood by Pulse oximetry Systolic blood pressure Diastolic blood pressure Provider Name and Address Organization Details Last Updated DateTime 250907. 69 g 34.1 kg/m2 172.72 cm 97.2 [degF] 65 /min 93 % 93 % 114 mm[Hg] 76 mm[Hg] Emmanuelle Ivan MA [place] [facility] [employer] 10:20:21 Date Recorded Body height Body mass index (BMI) Body weight Body temperature Heart rate Oxygen saturation Oxygen saturation in Arterial blood by Pulse oximetry Systolic blood pressure Diastolic blood pressure Provider Name and Address Organization Details Last Updated DateTime 172.72 cm 34.2 kg/m2 687796. 28 g 98.4 [degF] 57 /min 97 % 97 % 120 mm[Hg] 70 mm[Hg] Emmanuelle Ivan MA [place] [employer] [facility] [employer] 11:50:16 Social History Question Answer Notes LastModified by Organizat ion Details LastModified Time Tobacco Smoking Status Former Smoker quit over 30 years ago Emmanuelle Ivan MA [facility], [facility] [employer] 05/19/2024 10:17:18 What Is Your Level Of Caffeine Consumption? Moderate Information not available 05/19/2024 In The 14 Days Before Symptom Onset, Have You Had Close Contact With A Laboratory-confir med COVID-19 While That Case Was Ill? No Information not available 05/19/2024 In The 14 Days Before Symptom Onset, Have You Had Close Contact With A Person Who Is Under Investigation For COVID-19 While That Person Was Ill? No Information not available 05/19/2024 What Type Of Diet Are You Following? REGULAR Information not available 06/08/2024 Do You Have An Electrostatic Air Filter? No Information not available 05/19/2024 When Did You Quit Smoking? 16+yearssinc elastcigaret te Information not available 05/19/2024 Do You Have A Humidifier? No Information not available 05/19/2024 Do You Have Moisture Problems In Your Home? No Information not available 05/19/2024 What Was The Date Of Your Most Recent Tobacco Screening? 06/08/2024 Information not available 06/08/2024 Do You Have Any Pets? Yes Dog Information not available 05/19/2024 Do You Use Your Seat Belt Or Car Seat Routinely? Yes Information not available 06/08/2024 Do You Have Smoke And Carbon Monoxide Detectors In Your Home? Yes Information not available 05/19/2024 Are You Passively Exposed To Smoke? No Information no t available 06/08/2024 How Many Years Have You Smoked Tobacco? 15 [email or web address] Information not available 06/17/2024 Have You Recently Traveled Abroad? No Information not available 05/19/2024 Do You Have Any Dietary Restrictions? No Information not available 06/08/2024 Sex: Unknown Functional Status Question Answer Note LastModified by Organizat ion Details LastModified Time Do you use any illicit or recreational drugs? No Information not available 05/19/2024 Do you or have you ever used any other forms of tobacco or nicotine? No Information not available 05/19/2024 What is your level of alcohol consumption? None Information not available 05/19/2024 Are you currently employed? No Information not available 05/19/2024 Have you been exposed to chemicals or toxins? not that aware of Information not available 06/08/2024 Mental Status Question Answer Note LastModified by Organization D etails LastModified Time Do you feel stressed (tense, restless, nervous, or anxious, or unable to sleep at night)? [id number] Information not available 06/08/2024 Family History Nothing Reported. Medical History No medical history recorded. Gynecological HistoryNo gynecological history recorded. Obstetrics History GPAL:G 0 P 0 0 0 0 Past Encounters Encounter ID Performer Location Encounter Start Date Encounter Closed Date Diagnosis/Indication Diagnosis SNOMED-CT Code Diagnosis ICD10 Code Diagnosis Note [id number] Nery Daly NP [facility] [address] [address] 05/19/2024 09:58:48 05/20/2024 12:52:16 Dyspnea on exertion 60843568 R06.09 R05.3 Lab work todayCXR orderCAT-2 8Mmrc-1PFT for baselineAw are to use Albuterol inhaler as needed-ok to use when sobEncoura ge patient to remain activefoll ow-up once testing is complete-s ooner for any changes in breathing and increase use of inhaler Ex-smoker 8334598 Z87.89 1 she declines LDCT Gastro-eso phageal reflux disease with esophagitis 103084411 K21.00 will continue her medication -may need to consider seeing GI [id number] Nery Daly NP [facility] [address] [address] 06/08/2024 11:31:36 06/09/2024 10:20:46 Chronic obstructive pulmonary disease 30653176 J44.9 Start with Dulera and use discussed- continues with cough and dyspneaUse Albuterol inhaler as neededPFT notes mild COPDCAT-27 Reviewed labs-no eosinophil s, no severe allergies, Alpha 1 negative-+ quantifero n, CXR with LLL scarring otherwise unremarkab leEncourag e to maintain vaccines when dueF/u with PMD for any new labsF/u with me in 4 months-Dul era use (rinse mouth after use)-will call if needs Albuterol (has some at home)Aware to call if any changes in symptoms or increase in use of Albuterol- severe symptoms ER Former hea vy tobacco smoker 0409616628 [address]-will call if she needs something to help relax during the test Nonspecifi c tuberculin test reaction 895805666 R76.12 has been referred to infectious disease Gastro-eso phageal reflux disease with esophagitis 570727415 K21.00 will continue her medication - needs to see GI-do feel most of the cough is coming from GERD-notes food is starting to get stuck Health Concerns Section Related Observation LastModified by Organization Detai ls LastModified Time None Recorded Concern Status LastModified by Organization Details LastModified Time None Recorded Advance Directives Directive None Recorded Payers Encounter Date Sequence Insurance Name Policy Number Policy Tang Covered Member ID Tang Member ID Guarantor Name 05/19/2024 1 [employer] - [employer]US (MEDICARE REPLACEMENT/A DVANTAGE - HMO) Dina Fish [id number] Dina Fish 06/08/2024 1 [employer] - [employer] (MEDICARE REPLACEMENT/A DVANTAGE - HMO) Dina Fish [id number] Dina Fish Notes Date Note Type Note Provider Name and Address Organization Details Recorded Time 05/19/2024 text/html DyspneaReported bypatient.Quality:dys pnea Severity:severe Onset/Timing:daily; during daytime Context:with activity;after respiratory illness;reflux Aggravating Factors:activity Associated Symptoms:no chest pain; no orthopnea; no PND; no fever; no chills; no wheezing; no dietary indiscretion; no hemoptysis; no weight gain;palpitations;fat igue;coughing up sputum;dyspepsia;hoar senessNotes:hx of esophagitis-stricture s-has had a cough sincehas tired various allergy med and nasal spraysshe notes several years ago had been told she might have asthma-last PFT done around 2 years ago noted normal per ptshe has a 15 year smoking hx of 3 ppdrarely uses albuterol Nery Daly NP [address], [facility] [address], [place], [address], [address] 05/19/2024 10:56:22 06/08/2024 text/html COPDReported bypatient.Severity:no t limiting Onset/Timing:chronic: slowly much worse Context:cigarette smoking Modifying Factors:relieved with rest; worse with exertion Associated Symptoms:no snoring; no excessive daytime sleepiness; no arousals from sleep; no decrease in exercise capacity; no fatigue; no coughing up sputum; no fever; no wheezing; no weight loss; no depression;dyspnea exertional;decrease in exercise capacity;cough non productiveNotes:PFT shows mild COPD-here for f/u for testing-TB was positive-has been adcwrewe63 year 3 ppd smoker-stopped 30 years ago Nery Daly NP [address], [address], [place], [address], [address] 06/08/2024 12:26:11 OBGyn Episode No OBEpisode recorded.
--- OUTSIDE RECORDS SUMMARY | 2024-07-10 01:08 | XMS_ITS ---
Author Organization [facility] [employer] [facility] Address [address] [facility] [address] [facility] [address] [place] [address] Care Team Providers Care Cable Maker Name Role Phone Juan David HOWARD, Tony Primary Care Provider Mona Laureano Unavailable [phone] REASON FOR VISIT F/U RX Social History Sex Assigned At : Social History Observation Description Sex Assigned At Female Encounters Encounter Location Date Provider Diagnosis [facility] [place] [id number] [facility] [address] [place] [address] 02/27/2024 Mona Bertrand Plan Of Treatment Next Appt Details Provider Name:Mona Bertrand , 09/22/2024 01:00:00 PM, [address], [facility] [address], [place], [address], Progress Notes * MARIBEL BRANDTDOB:1950 (73 yo F)Acc No.[id number]:02/27/2024 Patient: MARIBEL AUGUSTINE Provider: AMANUEL PEREZ :1950 A ge:73 Y S ex:Female Date:02/27/2024 Address:[facility] [address] [facility] Pcp:Tony Fall MD Subjective: * Chief Complaints: * 1 . F/U RX. * Medical History: Objective: * Vitals: Assessment: Plan: * Treatment: * Billing Information: * Visit Code: * Procedure Codes: * Electronic signature of AMANUEL Santana on 07/10/2024 at 01:08 AM CDT Sign off status: Pending * Provider: AMANUEL PEREZ Date: 0 02/27/2024 Generated for Amisha vogel/Marzena/Fito on: 0 07/10/2024 01:08 AM CDT
--- OUTSIDE RECORDS SUMMARY | 2024-07-10 01:08 | XMS_ITS | Patient Health Record ---
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 Name Role Phone Tony Fall MD Primary Care Provider Mona Laureano Unavailable [phone] Allergies Allergen (clinical drug ingredient) Drug/Non Drug Allergy documented on EMR Reaction Allergy Type Onset Date Status ciprofloxacin Cipro Unknown Drug Allergy 04/29/2023 Ac tive meperidine Demerol Unknown Drug Allergy 04/29/2023 Activ e fentanyl fentaNYL Unknown Drug Allergy 04/29/2023 Active codeine Codeine Unknown Drug Allergy 04/29/2023 Active Reason For Referral No Information Medications Medication SIG (Take, Route, Frequency, Duration) Notes Start Date End Date Status busPIRone HCl 10 MG 1 tablet Oral Twice a day for 90 days Active Nystatin-Triamcinolone 942019-4.1 UNIT/GM External for 15 Days PRN A ctive Rosuvastatin Calcium 40 MG Oral for 90 Days Active Cyanocobalamin 1000 MCG/ML Injection for 84 Days Active Lansoprazole 30 MG Oral for 90 Days Active LORazepam 1 MG Oral for 30 Days Active Telmisartan 20 MG Oral for 90 Days Active Metoprolol Succinate ER 25 MG Oral for 90 Days Active Escitalopram Oxalate 20 MG 1 tablet Oral Once a day for 90 days Active lamoTRIgine 150 MG 1 tablet Oral twice a day for 90 days Active Immunizations Vaccine Route Administration Date Status Comme nts Influenza virus vaccine, quadrivalent (IIV4), split virus, 0.25 mL dosage Unknown 01/12/2019 Administered Influenza virus vaccine, quadrivalent (IIV4), split virus, 0.25 mL dosage Unknown 11/20/2019 Administered Influenza, injectable, MDCK, preservative free Unknown 11/20/2019 Administered Influenza, seasonal, injecta ble, preservative free, 3 yrs and above Unknown 11/25/2012 Administered Pneumococcal conjugate PCV 13 Unknown 11/19/2018 Admini stered Pneumococcal conjugate PCV 13 Unknown 01/13/2019 Admini stered Tdap Unknown 02/11/2015 Administered Social History Tobacco Use: Social History Observation Description Date Details (start date - stop date) Former Smoker NA - NA Sex Assigned At : Social History Observation Description Sex Assigned At Female Household Question Answer Notes Marital status: Number of adults in household: 2 Number of children in household: 0 1 SON 1 son in residential 1 grandson adopted Tobacco Control (Standard) Question Answer Notes How long has it been since you last smoked? Grea ter than 10 years Tobacco use: Former smoker AUDIT-C (Standard) Question Answer Notes Did you have a drink containing alcohol in the p ast year? No Problems Problem Type SNOMED Code ICD Code Onset Dates Problem Status W/U Status Risk Notes Problem Generalized anxiety disorder (78669595) Generalized anxiety disorder (F41.1) 04/29/19 Active confirmed Problem Posttraumatic stress disorder (65785026) Post-traumatic stress disorder, chronic (F43.12) 04/29/19 Active confirmed Problem Primary insomnia (8434951) Primary insomnia (F51.01) 04/29/19 24 Active confirmed Problem Screening for cardiovascular system disease (167565620) Encounter for screening for cardiovascular disorders (Z13.6) Active confirmed Problem Long-term current use of drug therapy (132459512) Other halfway (current) drug therapy (Z79.899) 04/29/19 Active confirmed Problem 793499941 Encounter for screening for depression (Z13.31) Active confirmed Problem [id number] Bipolar disorder with depression (F31.9) Active confirmed Problem 84493943 Essential hypertension (I10) Active confirmed Vital Signs Heart Rate 73 /min 03/23/2024 Height-cm 172.72 cm 06/22/2024 Blood pressure diastolic 88 mm Hg 06/22/2024 Weight-kg 103.24 kg 06/22/2024 Height 68.00 in 06/22/2024 Blood pressure systolic 131 mm Hg 06/22/2024 Weight 227.6 lbs 06/22/2024 BMI 34.6 kg/m2 06/22/2024 Encounters Encounter Location Date Provider Diagnosis [place] [id number] [facility] [address] [address] 08/12/2023 Mona Theranup Bipolar disorder wit h depression F31.9 ; Generalized anxiety disorder F41.1 ; Primary insomnia F51.01 ; Post-traumatic stress disorder, chronic F43.12 and 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 Z79.[address] [facility] [address] [place] [address] 08/26/2023 Mona Theranup Bipolar disorder wit h depression F31.9 ; Generalized anxiety disorder F41.1 ; Primary insomnia F51.01 ; Post-traumatic stress disorder, chronic F43.12 and Other halfway (current) drug therapy Z79.[address] [address] 11/28/2023 Mona Theranup Bipolar disorder wit h depression F31.9 ; Generalized anxiety disorder F41.1 ; Primary insomnia F51.01 ; Post-traumatic stress disorder, chronic F43.12 ; 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 Z79.899 and Essential hypertension I10 [place] [id number] [facility] [address] [address] 03/23/2024 Mona Theranup Bipolar disorder wit h depression F31.9 ; Generalized anxiety disorder F41.1 ; Primary insomnia F51.01 ; Post-traumatic stress disorder, chronic F43.12 ; 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 Z79.899 and Essential hypertension I10 [place] [id number] [facility] [address] [address] 06/22/2024 Mona Theranup Encounter for screen ing for depression Z13.31 ; Bipolar disorder with depression F31.9 ; Generalized anxiety disorder F41.1 ; Primary insomnia F51.01 ; Post-traumatic stress disorder, chronic F43.12 ; Other halfway (current) drug therapy Z79.899 ; Essential hypertension I10 and Encounter for screening for cardiovascular disorders Z13.6 [place] [address] [facility] [address] [address] 07/07/2024 Mona Theranup Generalized anxiety disorder F41.1 [facility] [employer] [address] [place] [address] 07/07/2024 Mona Bertrand Generalized anxiety disorder F41.1 Assessments Encounter Date Diagnosis (ICD Code) Assessment Notes Treatment Notes Treatment Clinical Notes Section Notes 08/12/2023 Bipolar disorder with depression (ICD-10 - F31.9) 1. Bipolar I disorder - recurrent depression - increase Lamotrigine 150 mg twice a day discuss rx and educated with patient seen PCP and labs obtain PCP increase Lamotrigine 150 mg twice a day Lamotrigine lamotrigine has a serious rashes requiring hospitalization and discontinue treatment including Dimitris Alcides syndrome rare case of toxic epidermal necrolysis and cache related deaths. Incidence with adjunct of epilepsy treatment 0.8% in 2 to 16 years old and 0.3% in adults, bipolar and other mood disorders incidence 0.8% this initial monotherapy and 0.13% as adjunctive treatment. Other risk factor may include concomitant use of valproate acid derivative or exceeding initial lamotrigine does or does as clinician recommendation; most life-threatening rash of occurring first 2 to 8 week of treatment with isolated cases after prolonged treatment; though benign may occur, discontinue treatment at first sign of rash unless clearly not a drug related; TC treatment may not prevent trash from becoming life-threatening or permanently disabling or disfiguring. Comment reaction include, nausea/vomiting, dizziness/vertigo, visual disturbances, somnolence, ataxia, pruritus/rash, pharyngitis, headache, rhinitis, diarrhea, fever, asthenia, insomnia, tremor, abdominal pain, cough, accidental injury, constipation, dysmenorrhea, incoordination, anxiety, seizures, irritability, anorexia, xerostomia, and photosensitivity. Serious reactions include: Rash, severe; Schneider Alcides syndrome; toxic epidermal necrosis; injury edema, hypersensitivity reactions. Including fatal, multiple organ failure to safe fatal, rash with eosinophilia systemic symptoms, DIC, neutropenia, leukopenia, thrombocytopenia, pancytopenia, aplastic anemia, hemolytic anemia, i pancreatitis, hepatic failure, rhabdomyolysis, worsening of suicidal ideation, worsening of depression, cleft lip/palate [first trimester use] DO not Change Cosmetic, perfumes or soap for next 4 weeks. The patient was advice to take lamotrigine as prescribed the patient was instructed not to deviate from the prescription dosages. Stop lamotrigine is the first sign of rash. Patient was insisted to inform office if any of the serious side effect develops. AIMS testing 04/25/20= 0AIMS 09/13/20 =5AIMS= 0 04/29/23 missing teeth monitor for depression and aaron educated on all medications, benefits, side effects and risk, and educated on depression, anxiety, and , mood d/o and educated on compliance of medications, metabolic and movement d/o education appointment's, continue therapy discussion with patient about course of treatmentand patient instructions. Prescription Monitoring Report reviewed F31.4: Bipolar disorder, current episode depressed, severe, without psychotic featureslamotrigine 150 mg tablet - TAKE 1 TABLET TWICE DAILY DIRECTED Qty: (180) tablet Refills: 0 Pharmacy: [facility] 2. Generalized anxiety disorder - Lexapro 20 mg daily PCP prescribe Ativan 1 mg HS Buspar 10 mg twice day - discuss increase three times a day and patient does not want to increasetherapy- patient refused Discussed and educated pt regarding benzodiazepines are generally not intended for prolonged use and that use can cause tolerance, dependence, depression, and associated memory issues including dementias (this list is not exhaustive). Benzodiazepine use is generally not recommended concurrently with pain medications and/or other controlled substances due to increased risks of profound sedation, respiratory depression, coma, and even . They are not to be used with any alcohol, as this combination can also be lethal. Patient was provided caution monitor for rcpshejM44.1: Generalized anxiety disorder buspirone 10 mg tablet - TAKE 1 TABLET BY MOUTH TWICE A DAY Qty: (180) tablet Refills: 0 Pharmacy: [facility]italopram 20 mg tablet - TAKE 1 TABLET BY MOUTH EVERY DAY IN THE MORNING Qty: (90) tablet Refills: 0 Pharmacy: [facility] 3. Primary insomnia -Melatonin 3 mg OTC -F51.01: Primary insomniasleep hygeine educated 4. Chronic post-traumatic stress disorder -wwpqqaP60.12: Post-traumatic stress disorder, chronic 5. Long-term drug vsuskpdU84.899: Other halfway (current) drug therapy 1. Bipolar I disorder - recurrent depression - increase Lamotrigine 150 mg twice a day discuss rx and educated with patient seen PCP and labs obtain PCP increase Lamotrigine 150 mg twice a day Lamotrigine lamotrigine has a serious rashes requiring hospitalization and discontinue treatment including Dimitris Alcides syndrome rare case of toxic epidermal necrolysis and cache related deaths. Incidence with adjunct of epilepsy treatment 0.8% in 2 to 16 years old and 0.3% in adults, bipolar and other mood disorders incidence 0.8% this initial monotherapy and 0.13% as adjunctive treatment. Other risk factor may include concomitant use of valproate acid derivative or exceeding initial lamotrigine does or does as clinician recommendation; most life-threatening rash of occurring first 2 to 8 week of treatment with isolated cases after prolonged treatment; though benign may occur, discontinue treatment at first sign of rash unless clearly not a drug related; TC treatment may not prevent trash from becoming life-threatening or permanently disabling or disfiguring. Comment reaction include, nausea/vomiting, dizziness/vertigo , visual disturbances, somnolence, ataxia, pruritus/rash, pharyngitis, headache, rhinitis, diarrhea, fever, asthenia, insomnia, tremor, abdominal pain, cough, accidental injury, constipation, dysmenorrhea, incoordination, anxiety, seizures, irritability, anorexia, xerostomia, and photosensitivity. Serious reactions include: Rash, severe; Schneider Alcides syndrome; toxic epidermal necrosis; injury edema, hypersensitivity reactions. Including fatal, multiple organ failure to safe fatal, rash with eosinophilia systemic symptoms, DIC, neutropenia, leukopenia, thrombocytopenia, pancytopenia, aplastic anemia, hemolytic anemia, i pancreatitis, hepatic failure, rhabdomyolysis, worsening of suicidal ideation, worsening of depression, cleft lip/palate [first trimester use] DO not Change Cosmetic, perfumes or soap for next 4 weeks. The patient was advice to take lamotrigine as prescribed the patient was instructed not to deviate from the prescription dosages. Stop lamotrigine is the first sign of rash. Patient was insisted to inform office if any of the serious side effect develops. AIMS testing 04/25/20= 0 AIMS 09/13/20 =5 AIMS= 0 04/29/23 missing teeth monitor for depression and aaron educated on all medications, benefits, side effects and risk, and educated on depression, anxiety, and , mood d/o and educated on compliance of medications, metabolic and movement d/o education appointment's, continue therapy discussion with patient about course of treatmentand patient instructions. Prescription Monitoring Report reviewed F31.4: Bipolar disorder, current episode depressed, severe, without psychotic features lamotrigine 150 mg tablet - TAKE 1 TABLET TWICE DAILY DIRECTED Qty: (180) tablet Refills: 0 Pharmacy: [facility] 2. Generalized anxiety disorder - Lexapro 20 mg daily PCP prescribe Ativan 1 mg HS Buspar 10 mg twice day - discuss increase three times a day and patient does not want to increasetherapy- patient refused Discussed and educated pt regarding benzodiazepines are generally not intended for prolonged use and that use can cause tolerance, dependence, depression, and associated memory issues including dementias (this list is not exhaustive). Benzodiazepine use is generally not recommended concurrently with pain medications and/or other controlled substances due to increased risks of profound sedation, respiratory depression, coma, and even . They are not to be used with any alcohol, as this combination can also be lethal. Patient was provided caution monitor for anxiety F41.1: Generalized anxiety disorder buspirone 10 mg tablet - TAKE 1 TABLET BY MOUTH TWICE A DAY Qty: (180) tablet Refills: 0 Pharmacy: [facility] escitalopram 20 mg tablet - TAKE 1 TABLET BY MOUTH EVERY DAY IN THE MORNING Qty: (90) tablet Refills: 0 Pharmacy: [facility] 3. Primary insomnia -Melatonin 3 mg OTC - F51.01: Primary insomniasleep hygeine educated 4. Chronic post-traumatic stress disorder - stable F43.12: Post-traumatic stress disorder, chronic 5. 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 Incidence with adjunct of epilepsy treatment 0.8% in 2 to 16 years old and 0.3% in adults, bipolar and other mood disorders incidence 0.8% this initial monotherapy and 0.13% as adjunctive treatment. Other risk factor may include concomitant use of valproate acid derivative or exceeding initial lamotrigine does or does as clinician recommendation; most life-threatening rash of occurring first 2 to 8 week of treatment with isolated cases after prolonged treatment; though benign may occur, discontinue treatment at first sign of rash unless clearly not a drug related; TC treatment may not prevent trash from becoming life-threatening or permanently disabling or disfiguring. Comment reaction include, nausea/vomiting, dizziness/vertigo , visual disturbances, somnolence, ataxia, pruritus/rash, pharyngitis, headache, rhinitis, diarrhea, fever, asthenia, insomnia, tremor, abdominal pain, cough, accidental injury, constipation, dysmenorrhea, incoordination, anxiety, seizures, irritability, anorexia, xerostomia, and photosensitivity. Serious reactions include: Rash, severe; Schneider Alcides syndrome; toxic epidermal necrosis; injury edema, hypersensitivity reactions. Including fatal, multiple organ failure to safe fatal, rash with eosinophilia systemic symptoms, DIC, neutropenia, leukopenia, thrombocytopenia, pancytopenia, aplastic anemia, hemolytic anemia, i pancreatitis, hepatic failure, rhabdomyolysis, worsening of suicidal ideation, worsening of depression, cleft lip/palate [first trimester use] DO not Change Cosmetic, perfumes or soap for next 4 weeks. The patient was advice to take lamotrigine as prescribed the patient was instructed not to deviate from the prescription dosages. Stop lamotrigine is the first sign of rash. Patient was insisted to inform office if any of the serious side effect develops. AIMS testing 04/25/20= 0 AIMS 09/13/20 =5 AIMS= 0 04/29/23 missing teeth monitor for depression and aaron educated on all medications, benefits, side effects and risk, and educated on depression, anxiety, and , mood d/o and educated on compliance of medications, metabolic and movement d/o education appointment's, continue therapy discussion with patient about course of treatmentand patient instructions. Prescription Monitoring Report reviewed F31.1: Bipolar disorder, current episode depressed, without psychotic features lamotrigine 150 mg tablet - TAKE 1 TABLET TWICE DAILY DIRECTED 2. Generalized anxiety disorder - Lexapro 20 mg daily PCP prescribe Ativan 1 mg HS Buspar 10 mg twice day - discuss increase three times a day and patient does not want to increase therapy- patient refused Discussed and educated pt regarding benzodiazepines are generally not intended for prolonged use and that use can cause tolerance, dependence, depression, and associated memory issues including dementias (this list is not exhaustive). Benzodiazepine use is generally not recommended concurrently with pain medications and/or other controlled substances due to increased risks of profound sedation, respiratory depression, coma, and even . They are not to be used with any alcohol, as this combination can also be lethal. Patient was provided caution monitor for anxiety F41.1: Generalized anxiety disorder buspirone 10 mg tablet - TAKE 1 TABLET BY MOUTH TWICE A DAY [facility] escitalopram 20 mg tablet - TAKE 1 TABLET BY MOUTH EVERY DAY IN THE MORNING 3. Primary insomnia -Melatonin 3 mg OTC - F51.01: Primary insomniasleep hygeine educated 4. Chronic post-traumatic stress disorder - stable F43.12: Post-traumatic stress disorder, chronic 5. Long-term drug therapy Z79.899: Other halfway (current) drug therapy 03/23/2024 Bipolar disorder with depression (ICD-10 - F31.9) 1. Bipolar I disorder - recurrent depression - Lamotrigine 150 mg twice a day discuss rx and educated with patient seen PCP and labs obtain PCP Lamotrigine 150 mg twice a day- improved depression Lamotrigine lamotrigine has a serious rashes requiring hospitalization and discontinue treatment including Dimitris Alcides syndrome rare case of toxic epidermal necrolysis and cache related deaths. Incidence with adjunct of epilepsy treatment 0.8% in 2 to 16 years old and 0.3% in adults, bipolar and other mood disorders incidence 0.8% this initial monotherapy and 0.13% as adjunctive treatment. Other risk factor may include concomitant use of valproate acid derivative or exceeding initial lamotrigine does or does as clinician recommendation; most life-threatening rash of occurring first 2 to 8 week of treatment with isolated cases after prolonged treatment; though benign may occur, discontinue treatment at first sign of rash unless clearly not a drug related; TC treatment may not prevent trash from becoming life-threatening or permanently disabling or disfiguring. Comment reaction include, nausea/vomiting, dizziness/vertigo , visual disturbances, somnolence, ataxia, pruritus/rash, pharyngitis, headache, rhinitis, diarrhea, fever, asthenia, insomnia, tremor, abdominal pain, cough, accidental injury, constipation, dysmenorrhea, incoordination, anxiety, seizures, irritability, anorexia, xerostomia, and photosensitivity. Serious reactions include: Rash, severe; Schneider Alcides syndrome; toxic epidermal necrosis; injury edema, hypersensitivity reactions. Including fatal, multiple organ failure to safe fatal, rash with eosinophilia systemic symptoms, DIC, neutropenia, leukopenia, thrombocytopenia, pancytopenia, aplastic anemia, hemolytic anemia, i pancreatitis, hepatic failure, rhabdomyolysis, worsening of suicidal ideation, worsening of depression, cleft lip/palate [first trimester use] DO not Change Cosmetic, perfumes or soap for next 4 weeks. The patient was advice to take lamotrigine as prescribed the patient was instructed not to deviate from the prescription dosages. Stop lamotrigine is the first sign of rash. Patient was insisted to inform office if any of the serious side effect develops. AIMS testing 04/25/20= 0 AIMS 09/13/20 =5 AIMS= 0 04/29/23 missing teeth monitor for depression and aaron educated on all medications, benefits, side effects and risk, and educated on depression, anxiety, and , mood d/o and educated on compliance of medications, metabolic and movement d/o education appointment's, continue therapy discussion with patient about course of treatmentand patient instructions. Prescription Monitoring Report reviewed 2. Generalized anxiety disorder - Lexapro 20 mg daily PCP prescribe Ativan 1 mg HS Buspar 10 mg twice day - discuss increase three times a day and patient does not want to increase therapy- patient refused Discussed and educated pt regarding benzodiazepines are generally not intended for prolonged use and that use can cause tolerance, dependence, depression, and associated memory issues including dementias (this list is not exhaustive). Benzodiazepine use is generally not recommended concurrently with pain medications and/or other controlled substances due to increased risks of profound sedation, respiratory depression, coma, and even . They are not to be used with any alcohol, as this combination can also be lethal. Patient was provided caution monitor for anxiety [facility] SLUMS= 25 11/28/23 3. Primary insomnia -Melatonin 3 mg OTC - sleep hygeine educated 4. Chronic post-traumatic stress disorder - stable 5. Long-term drug therapy 07/07/2024 Generalized anxiety disorder (ICD-10 - F41.1) 07/07/2024 Generalized anxiety disorder (ICD-10 - F41.1) 06/22/2024 Encounter for screening for depression (ICD-10 - Z13.31) 1. Bipolar I disorder - recurrent depression - Lamotrigine 150 mg twice a day discuss rx and educated with patient seen PCP and labs PCP Lamotrigine 150 mg twice a day- improved depression Lamotrigine lamotrigine has a serious rashes requiring hospitalization and discontinue treatment including Dimitris Alcides syndrome rare case of toxic epidermal necrolysis and cache related deaths. Incidence with adjunct of epilepsy treatment 0.8% in 2 to 16 years old and 0.3% in adults, bipolar and other mood disorders incidence 0.8% this initial monotherapy and 0.13% as adjunctive treatment. Other risk factor may include concomitant use of valproate acid derivative or exceeding initial lamotrigine does or does as clinician recommendation; most life-threatening rash of occurring first 2 to 8 week of treatment with isolated cases after prolonged treatment; though benign may occur, discontinue treatment at first sign of rash unless clearly not a drug related; TC treatment may not prevent trash from becoming life-threatening or permanently disabling or disfiguring. Comment reaction include, nausea/vomiting, dizziness/vertigo , visual disturbances, somnolence, ataxia, pruritus/rash, pharyngitis, headache, rhinitis, diarrhea, fever, asthenia, insomnia, tremor, abdominal pain, cough, accidental injury, constipation, dysmenorrhea, incoordination, anxiety, seizures, irritability, anorexia, xerostomia, and photosensitivity. Serious reactions include: Rash, severe; Schneider Alcides syndrome; toxic epidermal necrosis; injury edema, hypersensitivity reactions. Including fatal, multiple organ failure to safe fatal, rash with eosinophilia systemic symptoms, DIC, neutropenia, leukopenia, thrombocytopenia, pancytopenia, aplastic anemia, hemolytic anemia, i pancreatitis, hepatic failure, rhabdomyolysis, worsening of suicidal ideation, worsening of depression, cleft lip/palate [first trimester use] DO not Change Cosmetic, perfumes or soap for next 4 weeks. The patient was advice to take lamotrigine as prescribed the patient was instructed not to deviate from the prescription dosages. Stop lamotrigine is the first sign of rash. Patient was insisted to inform office if any of the serious side effect develops. AIMS testing 04/25/20= 0 AIMS 09/13/20 =5 AIMS= 0 04/29/23 missing teeth monitor for depression and aaron educated on all medications, benefits, side effects and risk, and educated on depression, anxiety, and , mood d/o and educated on compliance of medications, metabolic and movement d/o education appointment's, continue therapy discussion with patient about course of treatmentand patient instructions. Prescription Monitoring Report reviewed 2. Generalized anxiety disorder - Lexapro 20 mg daily PCP prescribe Ativan 1 mg HS Buspar 10 mg twice day - discuss increase three times a day and patient does not want to increase therapy- patient refused Discussed and educated pt regarding benzodiazepines are generally not intended for prolonged use and that use can cause tolerance, dependence, depression, and associated memory issues including dementias (this list is not exhaustive). Benzodiazepine use is generally not recommended concurrently with pain medications and/or other controlled substances due to increased risks of profound sedation, respiratory depression, coma, and even . They are not to be used with any alcohol, as this combination can also be lethal. Patient was provided caution monitor for anxiety [facility] MAIL DELIVERY SLUMS= 25 11/28/23 3. Primary insomnia -Melatonin 3 mg OTC - sleep hygeine educated 4. Chronic post-traumatic stress disorder - stable 5. Long-term drug therapy 06/22/2024 Bipolar disorder with depression (ICD-10 - F31.9) 1. Bipolar I disorder - recurrent depression - Lamotrigine 150 mg twice a day discuss rx and educated with patient seen PCP and labs PCP Lamotrigine 150 mg twice a day- improved depression Lamotrigine lamotrigine has a serious rashes requiring hospitalization and discontinue treatment including Dimitris Alcides syndrome rare case of toxic epidermal necrolysis and cache related deaths. Incidence with adjunct of epilepsy treatment 0.8% in 2 to 16 years old and 0.3% in adults, bipolar and other mood disorders incidence 0.8% this initial monotherapy and 0.13% as adjunctive treatment. Other risk factor may include concomitant use of valproate acid derivative or exceeding initial lamotrigine does or does as clinician recommendation; most life-threatening rash of occurring first 2 to 8 week of treatment with isolated cases after prolonged treatment; though benign may occur, discontinue treatment at first sign of rash unless clearly not a drug related; TC treatment may not prevent trash from becoming life-threatening or permanently disabling or disfiguring. Comment reaction include, nausea/vomiting, dizziness/vertigo , visual disturbances, somnolence, ataxia, pruritus/rash, pharyngitis, headache, rhinitis, diarrhea, fever, asthenia, insomnia, tremor, abdominal pain, cough, accidental injury, constipation, dysmenorrhea, incoordination, anxiety, seizures, irritability, anorexia, xerostomia, and photosensitivity. Serious reactions include: Rash, severe; Schneider Alcides syndrome; toxic epidermal necrosis; injury edema, hypersensitivity reactions. Including fatal, multiple organ failure to safe fatal, rash with eosinophilia systemic symptoms, DIC, neutropenia, leukopenia, thrombocytopenia, pancytopenia, aplastic anemia, hemolytic anemia, i pancreatitis, hepatic failure, rhabdomyolysis, worsening of suicidal ideation, worsening of depression, cleft lip/palate [first trimester use] DO not Change Cosmetic, perfumes or soap for next 4 weeks. The patient was advice to take lamotrigine as prescribed the patient was instructed not to deviate from the prescription dosages. Stop lamotrigine is the first sign of rash. Patient was insisted to inform office if any of the serious side effect develops. AIMS testing 04/25/20= 0 AIMS 09/13/20 =5 AIMS= 0 04/29/23 missing teeth monitor for depression and aaron educated on all medications, benefits, side effects and risk, and educated on depression, anxiety, and , mood d/o and educated on compliance of medications, metabolic and movement d/o education appointment's, continue therapy discussion with patient about course of treatmentand patient instructions. Prescription Monitoring Report reviewed 2. Generalized anxiety disorder - Lexapro 20 mg daily PCP prescribe Ativan 1 mg HS Buspar 10 mg twice day - discuss increase three times a day and patient does not want to increase therapy- patient refused Discussed and educated pt regarding benzodiazepines are generally not intended for prolonged use and that use can cause tolerance, dependence, depression, and associated memory issues including dementias (this list is not exhaustive). Benzodiazepine use is generally not recommended concurrently with pain medications and/or other controlled substances due to increased risks of profound sedation, respiratory depression, coma, and even . They are not to be used with any alcohol, as this combination can also be lethal. Patient was provided caution monitor for anxiety [facility] MAIL DELIVERY SLUMS= 25 11/28/23 3. Primary insomnia -Melatonin 3 mg OTC - sleep hygeine educated 4. Chronic post-traumatic stress disorder - stable 5. Long-term drug therapy 11/28/2023 Generalized anxiety disorder (ICD-10 - F41.1) 1. Bipolar I disorder - recurrent depression - Lamotrigine 150 mg twice a day discuss rx and educated with patient seen PCP and labs obtain PCP Lamotrigine 150 mg twice a day- improved depression Lamotrigine lamotrigine has a serious rashes requiring hospitalization and discontinue treatment including Dimitris Alcides syndrome rare case of toxic epidermal necrolysis and cache related deaths. Incidence with adjunct of epilepsy treatment 0.8% in 2 to 16 years old and 0.3% in adults, bipolar and other mood disorders incidence 0.8% this initial monotherapy and 0.13% as adjunctive treatment. Other risk factor may include concomitant use of valproate acid derivative or exceeding initial lamotrigine does or does as clinician recommendation; most life-threatening rash of occurring first 2 to 8 week of treatment with isolated cases after prolonged treatment; though benign may occur, discontinue treatment at first sign of rash unless clearly not a drug related; TC treatment may not prevent trash from becoming life-threatening or permanently disabling or disfiguring. Comment reaction include, nausea/vomiting, dizziness/vertigo , visual disturbances, somnolence, ataxia, pruritus/rash, pharyngitis, headache, rhinitis, diarrhea, fever, asthenia, insomnia, tremor, abdominal pain, cough, accidental injury, constipation, dysmenorrhea, incoordination, anxiety, seizures, irritability, anorexia, xerostomia, and photosensitivity. Serious reactions include: Rash, severe; Schneider Alcides syndrome; toxic epidermal necrosis; injury edema, hypersensitivity reactions. Including fatal, multiple organ failure to safe fatal, rash with eosinophilia systemic symptoms, DIC, neutropenia, leukopenia, thrombocytopenia, pancytopenia, aplastic anemia, hemolytic anemia, i pancreatitis, hepatic failure, rhabdomyolysis, worsening of suicidal ideation, worsening of depression, cleft lip/palate [first trimester use] DO not Change Cosmetic, perfumes or soap for next 4 weeks. The patient was advice to take lamotrigine as prescribed the patient was instructed not to deviate from the prescription dosages. Stop lamotrigine is the first sign of rash. Patient was insisted to inform office if any of the serious side effect develops. AIMS testing 04/25/20= 0 AIMS 09/13/20 =5 AIMS= 0 04/29/23 missing teeth monitor for depression and aaron educated on all medications, benefits, side effects and risk, and educated on depression, anxiety, and , mood d/o and educated on compliance of medications, metabolic and movement d/o education appointment's, continue therapy discussion with patient about course of treatmentand patient instructions. Prescription Monitoring Report reviewed 2. Generalized anxiety disorder - Lexapro 20 mg daily PCP prescribe Ativan 1 mg HS Buspar 10 mg twice day - discuss increase three times a day and patient does not want to increase therapy- patient refused Discussed and educated pt regarding benzodiazepines are generally not intended for prolonged use and that use can cause tolerance, dependence, depression, and associated memory issues including dementias (this list is not exhaustive). Benzodiazepine use is generally not recommended concurrently with pain medications and/or other controlled substances due to increased risks of profound sedation, respiratory depression, coma, and even . They are not to be used with any alcohol, as this combination can also be lethal. Patient was provided caution monitor for anxiety [facility] MAIL DELIVERY SLUMS= 25 11/28/23 3. Primary insomnia -Melatonin 3 mg OTC - sleep hygeine educated 4. Chronic post-traumatic stress disorder - stable 5. Long-term drug therapy 11/28/2023 Bipolar disorder with depression (ICD-10 - F31.9) 1. Bipolar I disorder - recurrent depression - Lamotrigine 150 mg twice a day discuss rx and educated with patient seen PCP and labs obtain PCP Lamotrigine 150 mg twice a day- improved depression Lamotrigine lamotrigine has a serious rashes requiring hospitalization and discontinue treatment including Dimitris Alcides syndrome rare case of toxic epidermal necrolysis and cache related deaths. Incidence with adjunct of epilepsy treatment 0.8% in 2 to 16 years old and 0.3% in adults, bipolar and other mood disorders incidence 0.8% this initial monotherapy and 0.13% as adjunctive treatment. Other risk factor may include concomitant use of valproate acid derivative or exceeding initial lamotrigine does or does as clinician recommendation; most life-threatening rash of occurring first 2 to 8 week of treatment with isolated cases after prolonged treatment; though benign may occur, discontinue treatment at first sign of rash unless clearly not a drug related; TC treatment may not prevent trash from becoming life-threatening or permanently disabling or disfiguring. Comment reaction include, nausea/vomiting, dizziness/vertigo , visual disturbances, somnolence, ataxia, pruritus/rash, pharyngitis, headache, rhinitis, diarrhea, fever, asthenia, insomnia, tremor, abdominal pain, cough, accidental injury, constipation, dysmenorrhea, incoordination, anxiety, seizures, irritability, anorexia, xerostomia, and photosensitivity. Serious reactions include: Rash, severe; Schneider Alcides syndrome; toxic epidermal necrosis; injury edema, hypersensitivity reactions. Including fatal, multiple organ failure to safe fatal, rash with eosinophilia systemic symptoms, DIC, neutropenia, leukopenia, thrombocytopenia, pancytopenia, aplastic anemia, hemolytic anemia, i pancreatitis, hepatic failure, rhabdomyolysis, worsening of suicidal ideation, worsening of depression, cleft lip/palate [first trimester use] DO not Change Cosmetic, perfumes or soap for next 4 weeks. The patient was advice to take lamotrigine as prescribed the patient was instructed not to deviate from the prescription dosages. Stop lamotrigine is the first sign of rash. Patient was insisted to inform office if any of the serious side effect develops. AIMS testing 04/25/20= 0 AIMS 09/13/20 =5 AIMS= 0 04/29/23 missing teeth monitor for depression and aaron educated on all medications, benefits, side effects and risk, and educated on depression, anxiety, and , mood d/o and educated on compliance of medications, metabolic and movement d/o education appointment's, continue therapy discussion with patient about course of treatmentand patient instructions. Prescription Monitoring Report reviewed 2. Generalized anxiety disorder - Lexapro 20 mg daily PCP prescribe Ativan 1 mg HS Buspar 10 mg twice day - discuss increase three times a day and patient does not want to increase therapy- patient refused Discussed and educated pt regarding benzodiazepines are generally not intended for prolonged use and that use can cause tolerance, dependence, depression, and associated memory issues including dementias (this list is not exhaustive). Benzodiazepine use is generally not recommended concurrently with pain medications and/or other controlled substances due to increased risks of profound sedation, respiratory depression, coma, and even . They are not to be used with any alcohol, as this combination can also be lethal. Patient was provided caution monitor for anxiety [facility] MAIL DELIVERY SLUMS= 25 11/28/23 3. Primary insomnia -Melatonin 3 mg OTC - sleep hygeine educated 4. Chronic post-traumatic stress disorder - stable 5. Long-term drug therapy 08/12/2023 Generalized anxiety disorder (ICD-10 - F41.1) 1. Bipolar I disorder - recurrent depression - increase Lamotrigine 150 mg twice a day discuss rx and educated with patient seen PCP and labs obtain PCP increase Lamotrigine 150 mg twice a day Lamotrigine lamotrigine has a serious rashes requiring hospitalization and discontinue treatment including Dimitris Alcides syndrome rare case of toxic epidermal necrolysis and cache related deaths. Incidence with adjunct of epilepsy treatment 0.8% in 2 to 16 years old and 0.3% in adults, bipolar and other mood disorders incidence 0.8% this initial monotherapy and 0.13% as adjunctive treatment. Other risk factor may include concomitant use of valproate acid derivative or exceeding initial lamotrigine does or does as clinician recommendation; most life-threatening rash of occurring first 2 to 8 week of treatment with isolated cases after prolonged treatment; though benign may occur, discontinue treatment at first sign of rash unless clearly not a drug related; TC treatment may not prevent trash from becoming life-threatening or permanently disabling or disfiguring. Comment reaction include, nausea/vomiting, dizziness/vertigo , visual disturbances, somnolence, ataxia, pruritus/rash, pharyngitis, headache, rhinitis, diarrhea, fever, asthenia, insomnia, tremor, abdominal pain, cough, accidental injury, constipation, dysmenorrhea, incoordination, anxiety, seizures, irritability, anorexia, xerostomia, and photosensitivity. Serious reactions include: Rash, severe; Schneider Alcides syndrome; toxic epidermal necrosis; injury edema, hypersensitivity reactions. Including fatal, multiple organ failure to safe fatal, rash with eosinophilia systemic symptoms, DIC, neutropenia, leukopenia, thrombocytopenia, pancytopenia, aplastic anemia, hemolytic anemia, i pancreatitis, hepatic failure, rhabdomyolysis, worsening of suicidal ideation, worsening of depression, cleft lip/palate [first trimester use] DO not Change Cosmetic, perfumes or soap for next 4 weeks. The patient was advice to take lamotrigine as prescribed the patient was instructed not to deviate from the prescription dosages. Stop lamotrigine is the first sign of rash. Patient was insisted to inform office if any of the serious side effect develops. AIMS testing 04/25/20= 0 AIMS 09/13/20 =5 AIMS= 0 04/29/23 missing teeth monitor for depression and aaron educated on all medications, benefits, side effects and risk, and educated on depression, anxiety, and , mood d/o and educated on compliance of medications, metabolic and movement d/o education appointment's, continue therapy discussion with patient about course of treatmentand patient instructions. Prescription Monitoring Report reviewed F31.4: Bipolar disorder, current episode depressed, severe, without psychotic features lamotrigine 150 mg tablet - TAKE 1 TABLET TWICE DAILY DIRECTED Qty: (180) tablet Refills: 0 Pharmacy: [facility] MAIL DELIVERY 2. Generalized anxiety disorder - Lexapro 20 mg daily PCP prescribe Ativan 1 mg HS Buspar 10 mg twice day - discuss increase three times a day and patient does not want to increasetherapy- patient refused Discussed and educated pt regarding benzodiazepines are generally not intended for prolonged use and that use can cause tolerance, dependence, depression, and associated memory issues including dementias (this list is not exhaustive). Benzodiazepine use is generally not recommended concurrently with pain medications and/or other controlled substances due to increased risks of profound sedation, respiratory depression, coma, and even . They are not to be used with any alcohol, as this combination can also be lethal. Patient was provided caution monitor for anxiety F41.1: Generalized anxiety disorder buspirone 10 mg tablet - TAKE 1 TABLET BY MOUTH TWICE A DAY Qty: (180) tablet Refills: 0 Pharmacy: [facility] MAIL DELIVERY escitalopram 20 mg tablet - TAKE 1 TABLET BY MOUTH EVERY DAY IN THE MORNING Qty: (90) tablet Refills: 0 Pharmacy: [facility] MAIL DELIVERY 3. Primary insomnia -Melatonin 3 mg OTC - F51.01: Primary insomniasleep hygeine educated 4. Chronic post-traumatic stress disorder - stable F43.12: Post-traumatic stress disorder, chronic 5. 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 Bipolar I disorder - recurrent depression - Lamotrigine 150 mg twice a day discuss rx and educated with patient seen PCP and labs obtain PCP Lamotrigine 150 mg twice a day- improved depression Lamotrigine lamotrigine has a serious rashes requiring hospitalization and discontinue treatment including Dimitris Alcides syndrome rare case of toxic epidermal necrolysis and cache related deaths. Incidence with adjunct of epilepsy treatment 0.8% in 2 to 16 years old and 0.3% in adults, bipolar and other mood disorders incidence 0.8% this initial monotherapy and 0.13% as adjunctive treatment. Other risk factor may include concomitant use of valproate acid derivative or exceeding initial lamotrigine does or does as clinician recommendation; most life-threatening rash of occurring first 2 to 8 week of treatment with isolated cases after prolonged treatment; though benign may occur, discontinue treatment at first sign of rash unless clearly not a drug related; TC treatment may not prevent trash from becoming life-threatening or permanently disabling or disfiguring. Comment reaction include, nausea/vomiting, dizziness/vertigo , visual disturbances, somnolence, ataxia, pruritus/rash, pharyngitis, headache, rhinitis, diarrhea, fever, asthenia, insomnia, tremor, abdominal pain, cough, accidental injury, constipation, dysmenorrhea, incoordination, anxiety, seizures, irritability, anorexia, xerostomia, and photosensitivity. Serious reactions include: Rash, severe; Schneider Alcides syndrome; toxic epidermal necrosis; injury edema, hypersensitivity reactions. Including fatal, multiple organ failure to safe fatal, rash with eosinophilia systemic symptoms, DIC, neutropenia, leukopenia, thrombocytopenia, pancytopenia, aplastic anemia, hemolytic anemia, i pancreatitis, hepatic failure, rhabdomyolysis, worsening of suicidal ideation, worsening of depression, cleft lip/palate [first trimester use] DO not Change Cosmetic, perfumes or soap for next 4 weeks. The patient was advice to take lamotrigine as prescribed the patient was instructed not to deviate from the prescription dosages. Stop lamotrigine is the first sign of rash. Patient was insisted to inform office if any of the serious side effect develops. AIMS testing 04/25/20= 0 AIMS 09/13/20 =5 AIMS= 0 04/29/23 missing teeth monitor for depression and aaron educated on all medications, benefits, side effects and risk, and educated on depression, anxiety, and , mood d/o and educated on compliance of medications, metabolic and movement d/o education appointment's, continue therapy discussion with patient about course of treatmentand patient instructions. Prescription Monitoring Report reviewed 2. Generalized anxiety disorder - Lexapro 20 mg daily PCP prescribe Ativan 1 mg HS Buspar 10 mg twice day - discuss increase three times a day and patient does not want to increase therapy- patient refused Discussed and educated pt regarding benzodiazepines are generally not intended for prolonged use and that use can cause tolerance, dependence, depression, and associated memory issues including dementias (this list is not exhaustive). Benzodiazepine use is generally not recommended concurrently with pain medications and/or other controlled substances due to increased risks of profound sedation, respiratory depression, coma, and even . They are not to be used with any alcohol, as this combination can also be lethal. Patient was provided caution monitor for anxiety [facility] MAIL DELIVERY SLUMS= 25 11/28/23 3. Primary insomnia -Melatonin 3 mg OTC - sleep hygeine educated 4. Chronic post-traumatic stress disorder - stable 5. Long-term drug therapy 08/12/2023 Primary insomnia (ICD-10 - F51.01) 1. Bipolar I disorder - recurrent depression - increase Lamotrigine 150 mg twice a day discuss rx and educated with patient seen PCP and labs obtain PCP increase Lamotrigine 150 mg twice a day Lamotrigine lamotrigine has a serious rashes requiring hospitalization and discontinue treatment including Dimitris Alcides syndrome rare case of toxic epidermal necrolysis and cache related deaths. Incidence with adjunct of epilepsy treatment 0.8% in 2 to 16 years old and 0.3% in adults, bipolar and other mood disorders incidence 0.8% this initial monotherapy and 0.13% as adjunctive treatment. Other risk factor may include concomitant use of valproate acid derivative or exceeding initial lamotrigine does or does as clinician recommendation; most life-threatening rash of occurring first 2 to 8 week of treatment with isolated cases after prolonged treatment; though benign may occur, discontinue treatment at first sign of rash unless clearly not a drug related; TC treatment may not prevent trash from becoming life-threatening or permanently disabling or disfiguring. Comment reaction include, nausea/vomiting, dizziness/vertigo , visual disturbances, somnolence, ataxia, pruritus/rash, pharyngitis, headache, rhinitis, diarrhea, fever, asthenia, insomnia, tremor, abdominal pain, cough, accidental injury, constipation, dysmenorrhea, incoordination, anxiety, seizures, irritability, anorexia, xerostomia, and photosensitivity. Serious reactions include: Rash, severe; Schneider Alcides syndrome; toxic epidermal necrosis; injury edema, hypersensitivity reactions. Including fatal, multiple organ failure to safe fatal, rash with eosinophilia systemic symptoms, DIC, neutropenia, leukopenia, thrombocytopenia, pancytopenia, aplastic anemia, hemolytic anemia, i pancreatitis, hepatic failure, rhabdomyolysis, worsening of suicidal ideation, worsening of depression, cleft lip/palate [first trimester use] DO not Change Cosmetic, perfumes or soap for next 4 weeks. The patient was advice to take lamotrigine as prescribed the patient was instructed not to deviate from the prescription dosages. Stop lamotrigine is the first sign of rash. Patient was insisted to inform office if any of the serious side effect develops. AIMS testing 04/25/20= 0 AIMS 09/13/20 =5 AIMS= 0 04/29/23 missing teeth monitor for depression and aaron educated on all medications, benefits, side effects and risk, and educated on depression, anxiety, and , mood d/o and educated on compliance of medications, metabolic and movement d/o education appointment's, continue therapy discussion with patient about course of treatmentand patient instructions. Prescription Monitoring Report reviewed F31.4: Bipolar disorder, current episode depressed, severe, without psychotic features lamotrigine 150 mg tablet - TAKE 1 TABLET TWICE DAILY DIRECTED Qty: (180) tablet Refills: 0 Pharmacy: [facility] 2. Generalized anxiety disorder - Lexapro 20 mg daily PCP prescribe Ativan 1 mg HS Buspar 10 mg twice day - discuss increase three times a day and patient does not want to increasetherapy- patient refused Discussed and educated pt regarding benzodiazepines are generally not intended for prolonged use and that use can cause tolerance, dependence, depression, and associated memory issues including dementias (this list is not exhaustive). Benzodiazepine use is generally not recommended concurrently with pain medications and/or other controlled substances due to increased risks of profound sedation, respiratory depression, coma, and even . They are not to be used with any alcohol, as this combination can also be lethal. Patient was provided caution monitor for anxiety F41.1: Generalized anxiety disorder buspirone 10 mg tablet - TAKE 1 TABLET BY MOUTH TWICE A DAY Qty: (180) tablet Refills: 0 Pharmacy: [facility] escitalopram 20 mg tablet - TAKE 1 TABLET BY MOUTH EVERY DAY IN THE MORNING Qty: (90) tablet Refills: 0 Pharmacy: [facility] 3. Primary insomnia -Melatonin 3 mg OTC - F51.01: Primary insomniasleep hygeine educated 4. Chronic post-traumatic stress disorder - stable F43.12: Post-traumatic stress disorder, chronic 5. Long-term drug therapy Z79.899: Other halfway (current) drug therapy 06/22/2024 Generalized anxiety disorder (ICD-10 - F41.1) 1. Bipolar I disorder - recurrent depression - Lamotrigine 150 mg twice a day discuss rx and educated with patient seen PCP and labs PCP Lamotrigine 150 mg twice a day- improved depression Lamotrigine lamotrigine has a serious rashes requiring hospitalization and discontinue treatment including Dimitris Alcides syndrome rare case of toxic epidermal necrolysis and cache related deaths. Incidence with adjunct of epilepsy treatment 0.8% in 2 to 16 years old and 0.3% in adults, bipolar and other mood disorders incidence 0.8% this initial monotherapy and 0.13% as adjunctive treatment. Other risk factor may include concomitant use of valproate acid derivative or exceeding initial lamotrigine does or does as clinician recommendation; most life-threatening rash of occurring first 2 to 8 week of treatment with isolated cases after prolonged treatment; though benign may occur, discontinue treatment at first sign of rash unless clearly not a drug related; TC treatment may not prevent trash from becoming life-threatening or permanently disabling or disfiguring. Comment reaction include, nausea/vomiting, dizziness/vertigo , visual disturbances, somnolence, ataxia, pruritus/rash, pharyngitis, headache, rhinitis, diarrhea, fever, asthenia, insomnia, tremor, abdominal pain, cough, accidental injury, constipation, dysmenorrhea, incoordination, anxiety, seizures, irritability, anorexia, xerostomia, and photosensitivity. Serious reactions include: Rash, severe; Schneider Alcides syndrome; toxic epidermal necrosis; injury edema, hypersensitivity reactions. Including fatal, multiple organ failure to safe fatal, rash with eosinophilia systemic symptoms, DIC, neutropenia, leukopenia, thrombocytopenia, pancytopenia, aplastic anemia, hemolytic anemia, i pancreatitis, hepatic failure, rhabdomyolysis, worsening of suicidal ideation, worsening of depression, cleft lip/palate [first trimester use] DO not Change Cosmetic, perfumes or soap for next 4 weeks. The patient was advice to take lamotrigine as prescribed the patient was instructed not to deviate from the prescription dosages. Stop lamotrigine is the first sign of rash. Patient was insisted to inform office if any of the serious side effect develops. AIMS testing 04/25/20= 0 AIMS 09/13/20 =5 AIMS= 0 04/29/23 missing teeth monitor for depression and aaron educated on all medications, benefits, side effects and risk, and educated on depression, anxiety, and , mood d/o and educated on compliance of medications, metabolic and movement d/o education appointment's, continue therapy discussion with patient about course of treatmentand patient instructions. Prescription Monitoring Report reviewed 2. Generalized anxiety disorder - Lexapro 20 mg daily PCP prescribe Ativan 1 mg HS Buspar 10 mg twice day - discuss increase three times a day and patient does not want to increase therapy- patient refused Discussed and educated pt regarding benzodiazepines are generally not intended for prolonged use and that use can cause tolerance, dependence, depression, and associated memory issues including dementias (this list is not exhaustive). Benzodiazepine use is generally not recommended concurrently with pain medications and/or other controlled substances due to increased risks of profound sedation, respiratory depression, coma, and even . They are not to be used with any alcohol, as this combination can also be lethal. Patient was provided caution monitor for anxiety [facility] SLUMS= 25 11/28/23 3. Primary insomnia -Melatonin 3 mg OTC - sleep hygeine educated 4. Chronic post-traumatic stress disorder - stable 5. Long-term drug therapy 03/23/2024 Generalized anxiety disorder (ICD-10 - F41.1) 1. Bipolar I disorder - recurrent depression - Lamotrigine 150 mg twice a day discuss rx and educated with patient seen PCP and labs obtain PCP Lamotrigine 150 mg twice a day- improved depression Lamotrigine lamotrigine has a serious rashes requiring hospitalization and discontinue treatment including Dimitris Alcides syndrome rare case of toxic epidermal necrolysis and cache related deaths. Incidence with adjunct of epilepsy treatment 0.8% in 2 to 16 years old and 0.3% in adults, bipolar and other mood disorders incidence 0.8% this initial monotherapy and 0.13% as adjunctive treatment. Other risk factor may include concomitant use of valproate acid derivative or exceeding initial lamotrigine does or does as clinician recommendation; most life-threatening rash of occurring first 2 to 8 week of treatment with isolated cases after prolonged treatment; though benign may occur, discontinue treatment at first sign of rash unless clearly not a drug related; TC treatment may not prevent trash from becoming life-threatening or permanently disabling or disfiguring. Comment reaction include, nausea/vomiting, dizziness/vertigo , visual disturbances, somnolence, ataxia, pruritus/rash, pharyngitis, headache, rhinitis, diarrhea, fever, asthenia, insomnia, tremor, abdominal pain, cough, accidental injury, constipation, dysmenorrhea, incoordination, anxiety, seizures, irritability, anorexia, xerostomia, and photosensitivity. Serious reactions include: Rash, severe; Schneider Alcides syndrome; toxic epidermal necrosis; injury edema, hypersensitivity reactions. Including fatal, multiple organ failure to safe fatal, rash with eosinophilia systemic symptoms, DIC, neutropenia, leukopenia, thrombocytopenia, pancytopenia, aplastic anemia, hemolytic anemia, i pancreatitis, hepatic failure, rhabdomyolysis, worsening of suicidal ideation, worsening of depression, cleft lip/palate [first trimester use] DO not Change Cosmetic, perfumes or soap for next 4 weeks. The patient was advice to take lamotrigine as prescribed the patient was instructed not to deviate from the prescription dosages. Stop lamotrigine is the first sign of rash. Patient was insisted to inform office if any of the serious side effect develops. AIMS testing 04/25/20= 0 AIMS 09/13/20 =5 AIMS= 0 04/29/23 missing teeth monitor for depression and aaron educated on all medications, benefits, side effects and risk, and educated on depression, anxiety, and , mood d/o and educated on compliance of medications, metabolic and movement d/o education appointment's, continue therapy discussion with patient about course of treatmentand patient instructions. Prescription Monitoring Report reviewed 2. Generalized anxiety disorder - Lexapro 20 mg daily PCP prescribe Ativan 1 mg HS Buspar 10 mg twice day - discuss increase three times a day and patient does not want to increase therapy- patient refused Discussed and educated pt regarding benzodiazepines are generally not intended for prolonged use and that use can cause tolerance, dependence, depression, and associated memory issues including dementias (this list is not exhaustive). Benzodiazepine use is generally not recommended concurrently with pain medications and/or other controlled substances due to increased risks of profound sedation, respiratory depression, coma, and even . They are not to be used with any alcohol, as this combination can also be lethal. Patient was provided caution monitor for anxiety [facility] DEL[facility] SLUMS= 25 11/28/23 3. Primary insomnia -Melatonin 3 mg OTC - sleep hygeine educated 4. Chronic post-traumatic stress disorder - stable 5. Long-term drug therapy 08/26/2023 Generalized anxiety disorder (ICD-10 - F41.1) 1. 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 Incidence with adjunct of epilepsy treatment 0.8% in 2 to 16 years old and 0.3% in adults, bipolar and other mood disorders incidence 0.8% this initial monotherapy and 0.13% as adjunctive treatment. Other risk factor may include concomitant use of valproate acid derivative or exceeding initial lamotrigine does or does as clinician recommendation; most life-threatening rash of occurring first 2 to 8 week of treatment with isolated cases after prolonged treatment; though benign may occur, discontinue treatment at first sign of rash unless clearly not a drug related; TC treatment may not prevent trash from becoming life-threatening or permanently disabling or disfiguring. Comment reaction include, nausea/vomiting, dizziness/vertigo , visual disturbances, somnolence, ataxia, pruritus/rash, pharyngitis, headache, rhinitis, diarrhea, fever, asthenia, insomnia, tremor, abdominal pain, cough, accidental injury, constipation, dysmenorrhea, incoordination, anxiety, seizures, irritability, anorexia, xerostomia, and photosensitivity. Serious reactions include: Rash, severe; Schneider Alcides syndrome; toxic epidermal necrosis; injury edema, hypersensitivity reactions. Including fatal, multiple organ failure to safe fatal, rash with eosinophilia systemic symptoms, DIC, neutropenia, leukopenia, thrombocytopenia, pancytopenia, aplastic anemia, hemolytic anemia, i pancreatitis, hepatic failure, rhabdomyolysis, worsening of suicidal ideation, worsening of depression, cleft lip/palate [first trimester use] DO not Change Cosmetic, perfumes or soap for next 4 weeks. The patient was advice to take lamotrigine as prescribed the patient was instructed not to deviate from the prescription dosages. Stop lamotrigine is the first sign of rash. Patient was insisted to inform office if any of the serious side effect develops. AIMS testing 04/25/20= 0 AIMS 09/13/20 =5 AIMS= 0 3/18/24 missing teeth monitor for depression and aaron educated on all medications, benefits, side effects and risk, and educated on depression, anxiety, and , mood d/o and educated on compliance of medications, metabolic and movement d/o education appointment's, continue therapy discussion with patient about course of treatmentand patient instructions. Prescription Monitoring Report reviewed F31.1: Bipolar disorder, current episode depressed, without psychotic features lamotrigine 150 mg tablet - TAKE 1 TABLET TWICE DAILY DIRECTED 2. Generalized anxiety disorder - Lexapro 20 mg daily PCP prescribe Ativan 1 mg HS Buspar 10 mg twice day - discuss increase three times a day and patient does not want to increase therapy- patient refused Discussed and educated pt regarding benzodiazepines are generally not intended for prolonged use and that use can cause tolerance, dependence, depression, and associated memory issues including dementias (this list is not exhaustive). Benzodiazepine use is generally not recommended concurrently with pain medications and/or other controlled substances due to increased risks of profound sedation, respiratory depression, coma, and even . They are not to be used with any alcohol, as this combination can also be lethal. Patient was provided caution monitor for anxiety F41.1: Generalized anxiety disorder buspirone 10 mg tablet - TAKE 1 TABLET BY MOUTH TWICE A DAY [facility] escitalopram 20 mg tablet - TAKE 1 TABLET BY MOUTH EVERY DAY IN THE MORNING 3. Primary insomnia -Melatonin 3 mg OTC - F51.01: Primary insomniasleep hygeine educated 4. Chronic post-traumatic stress disorder - stable F43.12: Post-traumatic stress disorder, chronic 5. Long-term drug therapy Z79.899: Other halfway (current) drug therapy 08/26/2023 Primary insomnia (ICD-10 - F51.01) 1. 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 Incidence with adjunct of epilepsy treatment 0.8% in 2 to 16 years old and 0.3% in adults, bipolar and other mood disorders incidence 0.8% this initial monotherapy and 0.13% as adjunctive treatment. Other risk factor may include concomitant use of valproate acid derivative or exceeding initial lamotrigine does or does as clinician recommendation; most life-threatening rash of occurring first 2 to 8 week of treatment with isolated cases after prolonged treatment; though benign may occur, discontinue treatment at first sign of rash unless clearly not a drug related; TC treatment may not prevent trash from becoming life-threatening or permanently disabling or disfiguring. Comment reaction include, nausea/vomiting, dizziness/vertigo , visual disturbances, somnolence, ataxia, pruritus/rash, pharyngitis, headache, rhinitis, diarrhea, fever, asthenia, insomnia, tremor, abdominal pain, cough, accidental injury, constipation, dysmenorrhea, incoordination, anxiety, seizures, irritability, anorexia, xerostomia, and photosensitivity. Serious reactions include: Rash, severe; Schneider Alcides syndrome; toxic epidermal necrosis; injury edema, hypersensitivity reactions. Including fatal, multiple organ failure to safe fatal, rash with eosinophilia systemic symptoms, DIC, neutropenia, leukopenia, thrombocytopenia, pancytopenia, aplastic anemia, hemolytic anemia, i pancreatitis, hepatic failure, rhabdomyolysis, worsening of suicidal ideation, worsening of depression, cleft lip/palate [first trimester use] DO not Change Cosmetic, perfumes or soap for next 4 weeks. The patient was advice to take lamotrigine as prescribed the patient was instructed not to deviate from the prescription dosages. Stop lamotrigine is the first sign of rash. Patient was insisted to inform office if any of the serious side effect develops. AIMS testing 04/25/20= 0 AIMS 09/13/20 =5 AIMS= 0 04/29/23 missing teeth monitor for depression and aaron educated on all medications, benefits, side effects and risk, and educated on depression, anxiety, and , mood d/o and educated on compliance of medications, metabolic and movement d/o education appointment's, continue therapy discussion with patient about course of treatmentand patient instructions. Prescription Monitoring Report reviewed F31.1: Bipolar disorder, current episode depressed, without psychotic features lamotrigine 150 mg tablet - TAKE 1 TABLET TWICE DAILY DIRECTED 2. Generalized anxiety disorder - Lexapro 20 mg daily PCP prescribe Ativan 1 mg HS Buspar 10 mg twice day - discuss increase three times a day and patient does not want to increase therapy- patient refused Discussed and educated pt regarding benzodiazepines are generally not intended for prolonged use and that use can cause tolerance, dependence, depression, and associated memory issues including dementias (this list is not exhaustive). Benzodiazepine use is generally not recommended concurrently with pain medications and/or other controlled substances due to increased risks of profound sedation, respiratory depression, coma, and even . They are not to be used with any alcohol, as this combination can also be lethal. Patient was provided caution monitor for anxiety F41.1: Generalized anxiety disorder buspirone 10 mg tablet - TAKE 1 TABLET BY MOUTH TWICE A DAY [facility] escitalopram 20 mg tablet - TAKE 1 TABLET BY MOUTH EVERY DAY IN THE MORNING 3. Primary insomnia -Melatonin 3 mg OTC - F51.01: Primary insomniasleep hygeine educated 4. Chronic post-traumatic stress disorder - stable F43.12: Post-traumatic stress disorder, chronic 5. Long-term drug therapy Z79.899: Other halfway (current) drug therapy 03/23/2024 Primary insomnia (ICD-10 - F51.01) 1. Bipolar I disorder - recurrent depression - Lamotrigine 150 mg twice a day discuss rx and educated with patient seen PCP and labs obtain PCP Lamotrigine 150 mg twice a day- improved depression Lamotrigine lamotrigine has a serious rashes requiring hospitalization and discontinue treatment including Dimitris Alcides syndrome rare case of toxic epidermal necrolysis and cache related deaths. Incidence with adjunct of epilepsy treatment 0.8% in 2 to 16 years old and 0.3% in adults, bipolar and other mood disorders incidence 0.8% this initial monotherapy and 0.13% as adjunctive treatment. Other risk factor may include concomitant use of valproate acid derivative or exceeding initial lamotrigine does or does as clinician recommendation; most life-threatening rash of occurring first 2 to 8 week of treatment with isolated cases after prolonged treatment; though benign may occur, discontinue treatment at first sign of rash unless clearly not a drug related; TC treatment may not prevent trash from becoming life-threatening or permanently disabling or disfiguring. Comment reaction include, nausea/vomiting, dizziness/vertigo , visual disturbances, somnolence, ataxia, pruritus/rash, pharyngitis, headache, rhinitis, diarrhea, fever, asthenia, insomnia, tremor, abdominal pain, cough, accidental injury, constipation, dysmenorrhea, incoordination, anxiety, seizures, irritability, anorexia, xerostomia, and photosensitivity. Serious reactions include: Rash, severe; Schneider Alcides syndrome; toxic epidermal necrosis; injury edema, hypersensitivity reactions. Including fatal, multiple organ failure to safe fatal, rash with eosinophilia systemic symptoms, DIC, neutropenia, leukopenia, thrombocytopenia, pancytopenia, aplastic anemia, hemolytic anemia, i pancreatitis, hepatic failure, rhabdomyolysis, worsening of suicidal ideation, worsening of depression, cleft lip/palate [first trimester use] DO not Change Cosmetic, perfumes or soap for next 4 weeks. The patient was advice to take lamotrigine as prescribed the patient was instructed not to deviate from the prescription dosages. Stop lamotrigine is the first sign of rash. Patient was insisted to inform office if any of the serious side effect develops. AIMS testing 04/25/20= 0 AIMS 09/13/20 =5 AIMS= 0 04/29/23 missing teeth monitor for depression and aaron educated on all medications, benefits, side effects and risk, and educated on depression, anxiety, and , mood d/o and educated on compliance of medications, metabolic and movement d/o education appointment's, continue therapy discussion with patient about course of treatmentand patient instructions. Prescription Monitoring Report reviewed 2. Generalized anxiety disorder - Lexapro 20 mg daily PCP prescribe Ativan 1 mg HS Buspar 10 mg twice day - discuss increase three times a day and patient does not want to increase therapy- patient refused Discussed and educated pt regarding benzodiazepines are generally not intended for prolonged use and that use can cause tolerance, dependence, depression, and associated memory issues including dementias (this list is not exhaustive). Benzodiazepine use is generally not recommended concurrently with pain medications and/or other controlled substances due to increased risks of profound sedation, respiratory depression, coma, and even . They are not to be used with any alcohol, as this combination can also be lethal. Patient was provided caution monitor for anxiety [facility] SLUMS= 25 11/28/23 3. Primary insomnia -Melatonin 3 mg OTC - sleep hygeine educated 4. Chronic post-traumatic stress disorder - stable 5. Long-term drug therapy 06/22/2024 Primary insomnia (ICD-10 - F51.01) 1. Bipolar I disorder - recurrent depression - Lamotrigine 150 mg twice a day discuss rx and educated with patient seen PCP and labs PCP Lamotrigine 150 mg twice a day- improved depression Lamotrigine lamotrigine has a serious rashes requiring hospitalization and discontinue treatment including Dimitris Alcides syndrome rare case of toxic epidermal necrolysis and cache related deaths. Incidence with adjunct of epilepsy treatment 0.8% in 2 to 16 years old and 0.3% in adults, bipolar and other mood disorders incidence 0.8% this initial monotherapy and 0.13% as adjunctive treatment. Other risk factor may include concomitant use of valproate acid derivative or exceeding initial lamotrigine does or does as clinician recommendation; most life-threatening rash of occurring first 2 to 8 week of treatment with isolated cases after prolonged treatment; though benign may occur, discontinue treatment at first sign of rash unless clearly not a drug related; TC treatment may not prevent trash from becoming life-threatening or permanently disabling or disfiguring. Comment reaction include, nausea/vomiting, dizziness/vertigo , visual disturbances, somnolence, ataxia, pruritus/rash, pharyngitis, headache, rhinitis, diarrhea, fever, asthenia, insomnia, tremor, abdominal pain, cough, accidental injury, constipation, dysmenorrhea, incoordination, anxiety, seizures, irritability, anorexia, xerostomia, and photosensitivity. Serious reactions include: Rash, severe; Schneider Alcides syndrome; toxic epidermal necrosis; injury edema, hypersensitivity reactions. Including fatal, multiple organ failure to safe fatal, rash with eosinophilia systemic symptoms, DIC, neutropenia, leukopenia, thrombocytopenia, pancytopenia, aplastic anemia, hemolytic anemia, i pancreatitis, hepatic failure, rhabdomyolysis, worsening of suicidal ideation, worsening of depression, cleft lip/palate [first trimester use] DO not Change Cosmetic, perfumes or soap for next 4 weeks. The patient was advice to take lamotrigine as prescribed the patient was instructed not to deviate from the prescription dosages. Stop lamotrigine is the first sign of rash. Patient was insisted to inform office if any of the serious side effect develops. AIMS testing 04/25/20= 0 AIMS 09/13/20 =5 AIMS= 0 04/29/23 missing teeth monitor for depression and aaron educated on all medications, benefits, side effects and risk, and educated on depression, anxiety, and , mood d/o and educated on compliance of medications, metabolic and movement d/o education appointment's, continue therapy discussion with patient about course of treatmentand patient instructions. Prescription Monitoring Report reviewed 2. Generalized anxiety disorder - Lexapro 20 mg daily PCP prescribe Ativan 1 mg HS Buspar 10 mg twice day - discuss increase three times a day and patient does not want to increase therapy- patient refused Discussed and educated pt regarding benzodiazepines are generally not intended for prolonged use and that use can cause tolerance, dependence, depression, and associated memory issues including dementias (this list is not exhaustive). Benzodiazepine use is generally not recommended concurrently with pain medications and/or other controlled substances due to increased risks of profound sedation, respiratory depression, coma, and even . They are not to be used with any alcohol, as this combination can also be lethal. Patient was provided caution monitor for anxiety [facility] DEL[facility] SLUMS= 25 11/28/23 3. Primary insomnia -Melatonin 3 mg OTC - sleep hygeine educated 4. Chronic post-traumatic stress disorder - stable 5. Long-term drug therapy 11/28/2023 Post-traumatic stress disorder, chronic (ICD-10 - F43.12) 1. Bipolar I disorder - recurrent depression - Lamotrigine 150 mg twice a day discuss rx and educated with patient seen PCP and labs obtain PCP Lamotrigine 150 mg twice a day- improved depression Lamotrigine lamotrigine has a serious rashes requiring hospitalization and discontinue treatment including Dimitris Alcides syndrome rare case of toxic epidermal necrolysis and cache related deaths. Incidence with adjunct of epilepsy treatment 0.8% in 2 to 16 years old and 0.3% in adults, bipolar and other mood disorders incidence 0.8% this initial monotherapy and 0.13% as adjunctive treatment. Other risk factor may include concomitant use of valproate acid derivative or exceeding initial lamotrigine does or does as clinician recommendation; most life-threatening rash of occurring first 2 to 8 week of treatment with isolated cases after prolonged treatment; though benign may occur, discontinue treatment at first sign of rash unless clearly not a drug related; TC treatment may not prevent trash from becoming life-threatening or permanently disabling or disfiguring. Comment reaction include, nausea/vomiting, dizziness/vertigo , visual disturbances, somnolence, ataxia, pruritus/rash, pharyngitis, headache, rhinitis, diarrhea, fever, asthenia, insomnia, tremor, abdominal pain, cough, accidental injury, constipation, dysmenorrhea, incoordination, anxiety, seizures, irritability, anorexia, xerostomia, and photosensitivity. Serious reactions include: Rash, severe; Schneider Alcidse syndrome; toxic epidermal necrosis; injury edema, hypersensitivity reactions. Including fatal, multiple organ failure to safe fatal, rash with eosinophilia systemic symptoms, DIC, neutropenia, leukopenia, thrombocytopenia, pancytopenia, aplastic anemia, hemolytic anemia, i pancreatitis, hepatic failure, rhabdomyolysis, worsening of suicidal ideation, worsening of depression, cleft lip/palate [first trimester use] DO not Change Cosmetic, perfumes or soap for next 4 weeks. The patient was advice to take lamotrigine as prescribed the patient was instructed not to deviate from the prescription dosages. Stop lamotrigine is the first sign of rash. Patient was insisted to inform office if any of the serious side effect develops. AIMS testing 04/25/20= 0 AIMS 09/13/20 =5 AIMS= 0 04/29/23 missing teeth monitor for depression and aaron educated on all medications, benefits, side effects and risk, and educated on depression, anxiety, and , mood d/o and educated on compliance of medications, metabolic and movement d/o education appointment's, continue therapy discussion with patient about course of treatmentand patient instructions. Prescription Monitoring Report reviewed 2. Generalized anxiety disorder - Lexapro 20 mg daily PCP prescribe Ativan 1 mg HS Buspar 10 mg twice day - discuss increase three times a day and patient does not want to increase therapy- patient refused Discussed and educated pt regarding benzodiazepines are generally not intended for prolonged use and that use can cause tolerance, dependence, depression, and associated memory issues including dementias (this list is not exhaustive). Benzodiazepine use is generally not recommended concurrently with pain medications and/or other controlled substances due to increased risks of profound sedation, respiratory depression, coma, and even . They are not to be used with any alcohol, as this combination can also be lethal. Patient was provided caution monitor for anxiety [facility] MA[facility] DELIVERY SLUMS= 25 11/28/23 3. Primary insomnia -Melatonin 3 mg OTC - sleep hygeine educated 4. Chronic post-traumatic stress disorder - stable 5. Long-term drug therapy 08/12/2023 Post-traumatic stress disorder, chronic (ICD-10 - F43.12) 1. Bipolar I disorder - recurrent depression - increase Lamotrigine 150 mg twice a day discuss rx and educated with patient seen PCP and labs obtain PCP increase Lamotrigine 150 mg twice a day Lamotrigine lamotrigine has a serious rashes requiring hospitalization and discontinue treatment including Dimitris Alcides syndrome rare case of toxic epidermal necrolysis and cache related deaths. Incidence with adjunct of epilepsy treatment 0.8% in 2 to 16 years old and 0.3% in adults, bipolar and other mood disorders incidence 0.8% this initial monotherapy and 0.13% as adjunctive treatment. Other risk factor may include concomitant use of valproate acid derivative or exceeding initial lamotrigine does or does as clinician recommendation; most life-threatening rash of occurring first 2 to 8 week of treatment with isolated cases after prolonged treatment; though benign may occur, discontinue treatment at first sign of rash unless clearly not a drug related; TC treatment may not prevent trash from becoming life-threatening or permanently disabling or disfiguring. Comment reaction include, nausea/vomiting, dizziness/vertigo , visual disturbances, somnolence, ataxia, pruritus/rash, pharyngitis, headache, rhinitis, diarrhea, fever, asthenia, insomnia, tremor, abdominal pain, cough, accidental injury, constipation, dysmenorrhea, incoordination, anxiety, seizures, irritability, anorexia, xerostomia, and photosensitivity. Serious reactions include: Rash, severe; Schneider Alcides syndrome; toxic epidermal necrosis; injury edema, hypersensitivity reactions. Including fatal, multiple organ failure to safe fatal, rash with eosinophilia systemic symptoms, DIC, neutropenia, leukopenia, thrombocytopenia, pancytopenia, aplastic anemia, hemolytic anemia, i pancreatitis, hepatic failure, rhabdomyolysis, worsening of suicidal ideation, worsening of depression, cleft lip/palate [first trimester use] DO not Change Cosmetic, perfumes or soap for next 4 weeks. The patient was advice to take lamotrigine as prescribed the patient was instructed not to deviate from the prescription dosages. Stop lamotrigine is the first sign of rash. Patient was insisted to inform office if any of the serious side effect develops. AIMS testing 04/25/20= 0 AIMS 09/13/20 =5 AIMS= 0 04/29/23 missing teeth monitor for depression and aaron educated on all medications, benefits, side effects and risk, and educated on depression, anxiety, and , mood d/o and educated on compliance of medications, metabolic and movement d/o education appointment's, continue therapy discussion with patient about course of treatmentand patient instructions. Prescription Monitoring Report reviewed F31.4: Bipolar disorder, current episode depressed, severe, without psychotic features lamotrigine 150 mg tablet - TAKE 1 TABLET TWICE DAILY DIRECTED Qty: (180) tablet Refills: 0 Pharmacy: [facility] 2. Generalized anxiety disorder - Lexapro 20 mg daily PCP prescribe Ativan 1 mg HS Buspar 10 mg twice day - discuss increase three times a day and patient does not want to increasetherapy- patient refused Discussed and educated pt regarding benzodiazepines are generally not intended for prolonged use and that use can cause tolerance, dependence, depression, and associated memory issues including dementias (this list is not exhaustive). Benzodiazepine use is generally not recommended concurrently with pain medications and/or other controlled substances due to increased risks of profound sedation, respiratory depression, coma, and even . They are not to be used with any alcohol, as this combination can also be lethal. Patient was provided caution monitor for anxiety F41.1: Generalized anxiety disorder buspirone 10 mg tablet - TAKE 1 TABLET BY MOUTH TWICE A DAY Qty: (180) tablet Refills: 0 Pharmacy: [facility] escitalopram 20 mg tablet - TAKE 1 TABLET BY MOUTH EVERY DAY IN THE MORNING Qty: (90) tablet Refills: 0 Pharmacy: [facility] 3. Primary insomnia -Melatonin 3 mg OTC - F51.01: Primary insomniasleep hygeine educated 4. Chronic post-traumatic stress disorder - stable F43.12: Post-traumatic stress disorder, chronic 5. 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 Bipolar I disorder - recurrent depression - Lamotrigine 150 mg twice a day discuss rx and educated with patient seen PCP and labs obtain PCP Lamotrigine 150 mg twice a day- improved depression Lamotrigine lamotrigine has a serious rashes requiring hospitalization and discontinue treatment including Dimitris Alcides syndrome rare case of toxic epidermal necrolysis and cache related deaths. Incidence with adjunct of epilepsy treatment 0.8% in 2 to 16 years old and 0.3% in adults, bipolar and other mood disorders incidence 0.8% this initial monotherapy and 0.13% as adjunctive treatment. Other risk factor may include concomitant use of valproate acid derivative or exceeding initial lamotrigine does or does as clinician recommendation; most life-threatening rash of occurring first 2 to 8 week of treatment with isolated cases after prolonged treatment; though benign may occur, discontinue treatment at first sign of rash unless clearly not a drug related; TC treatment may not prevent trash from becoming life-threatening or permanently disabling or disfiguring. Comment reaction include, nausea/vomiting, dizziness/vertigo , visual disturbances, somnolence, ataxia, pruritus/rash, pharyngitis, headache, rhinitis, diarrhea, fever, asthenia, insomnia, tremor, abdominal pain, cough, accidental injury, constipation, dysmenorrhea, incoordination, anxiety, seizures, irritability, anorexia, xerostomia, and photosensitivity. Serious reactions include: Rash, severe; Schneider Alcides syndrome; toxic epidermal necrosis; injury edema, hypersensitivity reactions. Including fatal, multiple organ failure to safe fatal, rash with eosinophilia systemic symptoms, DIC, neutropenia, leukopenia, thrombocytopenia, pancytopenia, aplastic anemia, hemolytic anemia, i pancreatitis, hepatic failure, rhabdomyolysis, worsening of suicidal ideation, worsening of depression, cleft lip/palate [first trimester use] DO not Change Cosmetic, perfumes or soap for next 4 weeks. The patient was advice to take lamotrigine as prescribed the patient was instructed not to deviate from the prescription dosages. Stop lamotrigine is the first sign of rash. Patient was insisted to inform office if any of the serious side effect develops. AIMS testing 04/25/20= 0 AIMS 09/13/20 =5 AIMS= 0 04/29/23 missing teeth monitor for depression and aaron educated on all medications, benefits, side effects and risk, and educated on depression, anxiety, and , mood d/o and educated on compliance of medications, metabolic and movement d/o education appointment's, continue therapy discussion with patient about course of treatmentand patient instructions. Prescription Monitoring Report reviewed 2. Generalized anxiety disorder - Lexapro 20 mg daily PCP prescribe Ativan 1 mg HS Buspar 10 mg twice day - discuss increase three times a day and patient does not want to increase therapy- patient refused Discussed and educated pt regarding benzodiazepines are generally not intended for prolonged use and that use can cause tolerance, dependence, depression, and associated memory issues including dementias (this list is not exhaustive). Benzodiazepine use is generally not recommended concurrently with pain medications and/or other controlled substances due to increased risks of profound sedation, respiratory depression, coma, and even . They are not to be used with any alcohol, as this combination can also be lethal. Patient was provided caution monitor for anxiety [facility] MA[facility] DELIV[facility] SLUMS= 25 11/28/23 3. Primary insomnia -Melatonin 3 mg OTC - sleep hygeine educated 4. Chronic post-traumatic stress disorder - stable 5. 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 Bipolar I disorder - recurrent depression - increase Lamotrigine 150 mg twice a day discuss rx and educated with patient seen PCP and labs obtain PCP increase Lamotrigine 150 mg twice a day Lamotrigine lamotrigine has a serious rashes requiring hospitalization and discontinue treatment including Dimitris Alcides syndrome rare case of toxic epidermal necrolysis and cache related deaths. Incidence with adjunct of epilepsy treatment 0.8% in 2 to 16 years old and 0.3% in adults, bipolar and other mood disorders incidence 0.8% this initial monotherapy and 0.13% as adjunctive treatment. Other risk factor may include concomitant use of valproate acid derivative or exceeding initial lamotrigine does or does as clinician recommendation; most life-threatening rash of occurring first 2 to 8 week of treatment with isolated cases after prolonged treatment; though benign may occur, discontinue treatment at first sign of rash unless clearly not a drug related; TC treatment may not prevent trash from becoming life-threatening or permanently disabling or disfiguring. Comment reaction include, nausea/vomiting, dizziness/vertigo , visual disturbances, somnolence, ataxia, pruritus/rash, pharyngitis, headache, rhinitis, diarrhea, fever, asthenia, insomnia, tremor, abdominal pain, cough, accidental injury, constipation, dysmenorrhea, incoordination, anxiety, seizures, irritability, anorexia, xerostomia, and photosensitivity. Serious reactions include: Rash, severe; Schneider Alcides syndrome; toxic epidermal necrosis; injury edema, hypersensitivity reactions. Including fatal, multiple organ failure to safe fatal, rash with eosinophilia systemic symptoms, DIC, neutropenia, leukopenia, thrombocytopenia, pancytopenia, aplastic anemia, hemolytic anemia, i pancreatitis, hepatic failure, rhabdomyolysis, worsening of suicidal ideation, worsening of depression, cleft lip/palate [first trimester use] DO not Change Cosmetic, perfumes or soap for next 4 weeks. The patient was advice to take lamotrigine as prescribed the patient was instructed not to deviate from the prescription dosages. Stop lamotrigine is the first sign of rash. Patient was insisted to inform office if any of the serious side effect develops. AIMS testing 04/25/20= 0 AIMS 09/13/20 =5 AIMS= 0 04/29/23 missing teeth monitor for depression and aaron educated on all medications, benefits, side effects and risk, and educated on depression, anxiety, and , mood d/o and educated on compliance of medications, metabolic and movement d/o education appointment's, continue therapy discussion with patient about course of treatmentand patient instructions. Prescription Monitoring Report reviewed F31.4: Bipolar disorder, current episode depressed, severe, without psychotic features lamotrigine 150 mg tablet - TAKE 1 TABLET TWICE DAILY DIRECTED Qty: (180) tablet Refills: 0 Pharmacy: [facility] 2. Generalized anxiety disorder - Lexapro 20 mg daily PCP prescribe Ativan 1 mg HS Buspar 10 mg twice day - discuss increase three times a day and patient does not want to increasetherapy- patient refused Discussed and educated pt regarding benzodiazepines are generally not intended for prolonged use and that use can cause tolerance, dependence, depression, and associated memory issues including dementias (this list is not exhaustive). Benzodiazepine use is generally not recommended concurrently with pain medications and/or other controlled substances due to increased risks of profound sedation, respiratory depression, coma, and even . They are not to be used with any alcohol, as this combination can also be lethal. Patient was provided caution monitor for anxiety F41.1: Generalized anxiety disorder buspirone 10 mg tablet - TAKE 1 TABLET BY MOUTH TWICE A DAY Qty: (180) tablet Refills: 0 Pharmacy: [facility] escitalopram 20 mg tablet - TAKE 1 TABLET BY MOUTH EVERY DAY IN THE MORNING Qty: (90) tablet Refills: 0 Pharmacy: [facility] 3. Primary insomnia -Melatonin 3 mg OTC - F51.01: Primary insomniasleep hygeine educated 4. Chronic post-traumatic stress disorder - stable F43.12: Post-traumatic stress disorder, chronic 5. 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 Bipolar I disorder - recurrent depression - Lamotrigine 150 mg twice a day discuss rx and educated with patient seen PCP and labs PCP Lamotrigine 150 mg twice a day- improved depression Lamotrigine lamotrigine has a serious rashes requiring hospitalization and discontinue treatment including Dimitris Alcides syndrome rare case of toxic epidermal necrolysis and cache related deaths. Incidence with adjunct of epilepsy treatment 0.8% in 2 to 16 years old and 0.3% in adults, bipolar and other mood disorders incidence 0.8% this initial monotherapy and 0.13% as adjunctive treatment. Other risk factor may include concomitant use of valproate acid derivative or exceeding initial lamotrigine does or does as clinician recommendation; most life-threatening rash of occurring first 2 to 8 week of treatment with isolated cases after prolonged treatment; though benign may occur, discontinue treatment at first sign of rash unless clearly not a drug related; TC treatment may not prevent trash from becoming life-threatening or permanently disabling or disfiguring. Comment reaction include, nausea/vomiting, dizziness/vertigo , visual disturbances, somnolence, ataxia, pruritus/rash, pharyngitis, headache, rhinitis, diarrhea, fever, asthenia, insomnia, tremor, abdominal pain, cough, accidental injury, constipation, dysmenorrhea, incoordination, anxiety, seizures, irritability, anorexia, xerostomia, and photosensitivity. Serious reactions include: Rash, severe; Schneider Alcides syndrome; toxic epidermal necrosis; injury edema, hypersensitivity reactions. Including fatal, multiple organ failure to safe fatal, rash with eosinophilia systemic symptoms, DIC, neutropenia, leukopenia, thrombocytopenia, pancytopenia, aplastic anemia, hemolytic anemia, i pancreatitis, hepatic failure, rhabdomyolysis, worsening of suicidal ideation, worsening of depression, cleft lip/palate [first trimester use] DO not Change Cosmetic, perfumes or soap for next 4 weeks. The patient was advice to take lamotrigine as prescribed the patient was instructed not to deviate from the prescription dosages. Stop lamotrigine is the first sign of rash. Patient was insisted to inform office if any of the serious side effect develops. AIMS testing 04/25/20= 0 AIMS 09/13/20 =5 AIMS= 0 04/29/23 missing teeth monitor for depression and aaron educated on all medications, benefits, side effects and risk, and educated on depression, anxiety, and , mood d/o and educated on compliance of medications, metabolic and movement d/o education appointment's, continue therapy discussion with patient about course of treatmentand patient instructions. Prescription Monitoring Report reviewed 2. Generalized anxiety disorder - Lexapro 20 mg daily PCP prescribe Ativan 1 mg HS Buspar 10 mg twice day - discuss increase three times a day and patient does not want to increase therapy- patient refused Discussed and educated pt regarding benzodiazepines are generally not intended for prolonged use and that use can cause tolerance, dependence, depression, and associated memory issues including dementias (this list is not exhaustive). Benzodiazepine use is generally not recommended concurrently with pain medications and/or other controlled substances due to increased risks of profound sedation, respiratory depression, coma, and even . They are not to be used with any alcohol, as this combination can also be lethal. Patient was provided caution monitor for anxiety [facility] DEL[facility] SLUMS= 25 11/28/23 3. Primary insomnia -Melatonin 3 mg OTC - sleep hygeine educated 4. Chronic post-traumatic stress disorder - stable 5. Long-term drug therapy 03/23/2024 Post-traumatic stress disorder, chronic (ICD-10 - F43.12) 1. Bipolar I disorder - recurrent depression - Lamotrigine 150 mg twice a day discuss rx and educated with patient seen PCP and labs obtain PCP Lamotrigine 150 mg twice a day- improved depression Lamotrigine lamotrigine has a serious rashes requiring hospitalization and discontinue treatment including Dimitris Alcides syndrome rare case of toxic epidermal necrolysis and cache related deaths. Incidence with adjunct of epilepsy treatment 0.8% in 2 to 16 years old and 0.3% in adults, bipolar and other mood disorders incidence 0.8% this initial monotherapy and 0.13% as adjunctive treatment. Other risk factor may include concomitant use of valproate acid derivative or exceeding initial lamotrigine does or does as clinician recommendation; most life-threatening rash of occurring first 2 to 8 week of treatment with isolated cases after prolonged treatment; though benign may occur, discontinue treatment at first sign of rash unless clearly not a drug related; TC treatment may not prevent trash from becoming life-threatening or permanently disabling or disfiguring. Comment reaction include, nausea/vomiting, dizziness/vertigo , visual disturbances, somnolence, ataxia, pruritus/rash, pharyngitis, headache, rhinitis, diarrhea, fever, asthenia, insomnia, tremor, abdominal pain, cough, accidental injury, constipation, dysmenorrhea, incoordination, anxiety, seizures, irritability, anorexia, xerostomia, and photosensitivity. Serious reactions include: Rash, severe; Schneider Alcides syndrome; toxic epidermal necrosis; injury edema, hypersensitivity reactions. Including fatal, multiple organ failure to safe fatal, rash with eosinophilia systemic symptoms, DIC, neutropenia, leukopenia, thrombocytopenia, pancytopenia, aplastic anemia, hemolytic anemia, i pancreatitis, hepatic failure, rhabdomyolysis, worsening of suicidal ideation, worsening of depression, cleft lip/palate [first trimester use] DO not Change Cosmetic, perfumes or soap for next 4 weeks. The patient was advice to take lamotrigine as prescribed the patient was instructed not to deviate from the prescription dosages. Stop lamotrigine is the first sign of rash. Patient was insisted to inform office if any of the serious side effect develops. AIMS testing 04/25/20= 0 AIMS 09/13/20 =5 AIMS= 0 04/29/23 missing teeth monitor for depression and aaron educated on all medications, benefits, side effects and risk, and educated on depression, anxiety, and , mood d/o and educated on compliance of medications, metabolic and movement d/o education appointment's, continue therapy discussion with patient about course of treatmentand patient instructions. Prescription Monitoring Report reviewed 2. Generalized anxiety disorder - Lexapro 20 mg daily PCP prescribe Ativan 1 mg HS Buspar 10 mg twice day - discuss increase three times a day and patient does not want to increase therapy- patient refused Discussed and educated pt regarding benzodiazepines are generally not intended for prolonged use and that use can cause tolerance, dependence, depression, and associated memory issues including dementias (this list is not exhaustive). Benzodiazepine use is generally not recommended concurrently with pain medications and/or other controlled substances due to increased risks of profound sedation, respiratory depression, coma, and even . They are not to be used with any alcohol, as this combination can also be lethal. Patient was provided caution monitor for anxiety [facility] MAIL DELIVERY SLUMS= 25 11/28/23 3. Primary insomnia -Melatonin 3 mg OTC - sleep hygeine educated 4. Chronic post-traumatic stress disorder - stable 5. Long-term drug therapy 08/26/2023 Post-traumatic stress disorder, chronic (ICD-10 - F43.12) 1. 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 Incidence with adjunct of epilepsy treatment 0.8% in 2 to 16 years old and 0.3% in adults, bipolar and other mood disorders incidence 0.8% this initial monotherapy and 0.13% as adjunctive treatment. Other risk factor may include concomitant use of valproate acid derivative or exceeding initial lamotrigine does or does as clinician recommendation; most life-threatening rash of occurring first 2 to 8 week of treatment with isolated cases after prolonged treatment; though benign may occur, discontinue treatment at first sign of rash unless clearly not a drug related; TC treatment may not prevent trash from becoming life-threatening or permanently disabling or disfiguring. Comment reaction include, nausea/vomiting, dizziness/vertigo , visual disturbances, somnolence, ataxia, pruritus/rash, pharyngitis, headache, rhinitis, diarrhea, fever, asthenia, insomnia, tremor, abdominal pain, cough, accidental injury, constipation, dysmenorrhea, incoordination, anxiety, seizures, irritability, anorexia, xerostomia, and photosensitivity. Serious reactions include: Rash, severe; Schneider Alcides syndrome; toxic epidermal necrosis; injury edema, hypersensitivity reactions. Including fatal, multiple organ failure to safe fatal, rash with eosinophilia systemic symptoms, DIC, neutropenia, leukopenia, thrombocytopenia, pancytopenia, aplastic anemia, hemolytic anemia, i pancreatitis, hepatic failure, rhabdomyolysis, worsening of suicidal ideation, worsening of depression, cleft lip/palate [first trimester use] DO not Change Cosmetic, perfumes or soap for next 4 weeks. The patient was advice to take lamotrigine as prescribed the patient was instructed not to deviate from the prescription dosages. Stop lamotrigine is the first sign of rash. Patient was insisted to inform office if any of the serious side effect develops. AIMS testing 04/25/20= 0 AIMS 09/13/20 =5 AIMS= 0 04/29/23 missing teeth monitor for depression and aaron educated on all medications, benefits, side effects and risk, and educated on depression, anxiety, and , mood d/o and educated on compliance of medications, metabolic and movement d/o education appointment's, continue therapy discussion with patient about course of treatmentand patient instructions. Prescription Monitoring Report reviewed F31.1: Bipolar disorder, current episode depressed, without psychotic features lamotrigine 150 mg tablet - TAKE 1 TABLET TWICE DAILY DIRECTED 2. Generalized anxiety disorder - Lexapro 20 mg daily PCP prescribe Ativan 1 mg HS Buspar 10 mg twice day - discuss increase three times a day and patient does not want to increase therapy- patient refused Discussed and educated pt regarding benzodiazepines are generally not intended for prolonged use and that use can cause tolerance, dependence, depression, and associated memory issues including dementias (this list is not exhaustive). Benzodiazepine use is generally not recommended concurrently with pain medications and/or other controlled substances due to increased risks of profound sedation, respiratory depression, coma, and even . They are not to be used with any alcohol, as this combination can also be lethal. Patient was provided caution monitor for anxiety F41.1: Generalized anxiety disorder buspirone 10 mg tablet - TAKE 1 TABLET BY MOUTH TWICE A DAY [facility] MAIL DELIVERY escitalopram 20 mg tablet - TAKE 1 TABLET BY MOUTH EVERY DAY IN THE MORNING 3. Primary insomnia -Melatonin 3 mg OTC - F51.01: Primary insomniasleep hygeine educated 4. Chronic post-traumatic stress disorder - stable F43.12: Post-traumatic stress disorder, chronic 5. Long-term drug therapy Z79.899: Other halfway (current) drug therapy 08/26/2023 Other halfway (current) drug therapy (ICD-10 - Z79.899) 1. 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 Incidence with adjunct of epilepsy treatment 0.8% in 2 to 16 years old and 0.3% in adults, bipolar and other mood disorders incidence 0.8% this initial monotherapy and 0.13% as adjunctive treatment. Other risk factor may include concomitant use of valproate acid derivative or exceeding initial lamotrigine does or does as clinician recommendation; most life-threatening rash of occurring first 2 to 8 week of treatment with isolated cases after prolonged treatment; though benign may occur, discontinue treatment at first sign of rash unless clearly not a drug related; TC treatment may not prevent trash from becoming life-threatening or permanently disabling or disfiguring. Comment reaction include, nausea/vomiting, dizziness/vertigo , visual disturbances, somnolence, ataxia, pruritus/rash, pharyngitis, headache, rhinitis, diarrhea, fever, asthenia, insomnia, tremor, abdominal pain, cough, accidental injury, constipation, dysmenorrhea, incoordination, anxiety, seizures, irritability, anorexia, xerostomia, and photosensitivity. Serious reactions include: Rash, severe; Schneider Alcides syndrome; toxic epidermal necrosis; injury edema, hypersensitivity reactions. Including fatal, multiple organ failure to safe fatal, rash with eosinophilia systemic symptoms, DIC, neutropenia, leukopenia, thrombocytopenia, pancytopenia, aplastic anemia, hemolytic anemia, i pancreatitis, hepatic failure, rhabdomyolysis, worsening of suicidal ideation, worsening of depression, cleft lip/palate [first trimester use] DO not Change Cosmetic, perfumes or soap for next 4 weeks. The patient was advice to take lamotrigine as prescribed the patient was instructed not to deviate from the prescription dosages. Stop lamotrigine is the first sign of rash. Patient was insisted to inform office if any of the serious side effect develops. AIMS testing 04/25/20= 0 AIMS 09/13/20 =5 AIMS= 0 04/29/23 missing teeth monitor for depression and aaron educated on all medications, benefits, side effects and risk, and educated on depression, anxiety, and , mood d/o and educated on compliance of medications, metabolic and movement d/o education appointment's, continue therapy discussion with patient about course of treatmentand patient instructions. Prescription Monitoring Report reviewed F31.1: Bipolar disorder, current episode depressed, without psychotic features lamotrigine 150 mg tablet - TAKE 1 TABLET TWICE DAILY DIRECTED 2. Generalized anxiety disorder - Lexapro 20 mg daily PCP prescribe Ativan 1 mg HS Buspar 10 mg twice day - discuss increase three times a day and patient does not want to increase therapy- patient refused Discussed and educated pt regarding benzodiazepines are generally not intended for prolonged use and that use can cause tolerance, dependence, depression, and associated memory issues including dementias (this list is not exhaustive). Benzodiazepine use is generally not recommended concurrently with pain medications and/or other controlled substances due to increased risks of profound sedation, respiratory depression, coma, and even . They are not to be used with any alcohol, as this combination can also be lethal. Patient was provided caution monitor for anxiety F41.1: Generalized anxiety disorder buspirone 10 mg tablet - TAKE 1 TABLET BY MOUTH TWICE A DAY [facility] MAIL DELIVERY escitalopram 20 mg tablet - TAKE 1 TABLET BY MOUTH EVERY DAY IN THE MORNING 3. Primary insomnia -Melatonin 3 mg OTC - F51.01: Primary insomniasleep hygeine educated 4. Chronic post-traumatic stress disorder - stable F43.12: Post-traumatic stress disorder, chronic 5. 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 Bipolar I disorder - recurrent depression - Lamotrigine 150 mg twice a day discuss rx and educated with patient seen PCP and labs obtain PCP Lamotrigine 150 mg twice a day- improved depression Lamotrigine lamotrigine has a serious rashes requiring hospitalization and discontinue treatment including Dimitris Alcides syndrome rare case of toxic epidermal necrolysis and cache related deaths. Incidence with adjunct of epilepsy treatment 0.8% in 2 to 16 years old and 0.3% in adults, bipolar and other mood disorders incidence 0.8% this initial monotherapy and 0.13% as adjunctive treatment. Other risk factor may include concomitant use of valproate acid derivative or exceeding initial lamotrigine does or does as clinician recommendation; most life-threatening rash of occurring first 2 to 8 week of treatment with isolated cases after prolonged treatment; though benign may occur, discontinue treatment at first sign of rash unless clearly not a drug related; TC treatment may not prevent trash from becoming life-threatening or permanently disabling or disfiguring. Comment reaction include, nausea/vomiting, dizziness/vertigo , visual disturbances, somnolence, ataxia, pruritus/rash, pharyngitis, headache, rhinitis, diarrhea, fever, asthenia, insomnia, tremor, abdominal pain, cough, accidental injury, constipation, dysmenorrhea, incoordination, anxiety, seizures, irritability, anorexia, xerostomia, and photosensitivity. Serious reactions include: Rash, severe; Schneider Alcides syndrome; toxic epidermal necrosis; injury edema, hypersensitivity reactions. Including fatal, multiple organ failure to safe fatal, rash with eosinophilia systemic symptoms, DIC, neutropenia, leukopenia, thrombocytopenia, pancytopenia, aplastic anemia, hemolytic anemia, i pancreatitis, hepatic failure, rhabdomyolysis, worsening of suicidal ideation, worsening of depression, cleft lip/palate [first trimester use] DO not Change Cosmetic, perfumes or soap for next 4 weeks. The patient was advice to take lamotrigine as prescribed the patient was instructed not to deviate from the prescription dosages. Stop lamotrigine is the first sign of rash. Patient was insisted to inform office if any of the serious side effect develops. AIMS testing 04/25/20= 0 AIMS 09/13/20 =5 AIMS= 0 04/29/23 missing teeth monitor for depression and aaron educated on all medications, benefits, side effects and risk, and educated on depression, anxiety, and , mood d/o and educated on compliance of medications, metabolic and movement d/o education appointment's, continue therapy discussion with patient about course of treatmentand patient instructions. Prescription Monitoring Report reviewed 2. Generalized anxiety disorder - Lexapro 20 mg daily PCP prescribe Ativan 1 mg HS Buspar 10 mg twice day - discuss increase three times a day and patient does not want to increase therapy- patient refused Discussed and educated pt regarding benzodiazepines are generally not intended for prolonged use and that use can cause tolerance, dependence, depression, and associated memory issues including dementias (this list is not exhaustive). Benzodiazepine use is generally not recommended concurrently with pain medications and/or other controlled substances due to increased risks of profound sedation, respiratory depression, coma, and even . They are not to be used with any alcohol, as this combination can also be lethal. Patient was provided caution monitor for anxiety [facility] MAIL DELIVERY SLUMS= 25 11/28/23 3. Primary insomnia -Melatonin 3 mg OTC - sleep hygeine educated 4. Chronic post-traumatic stress disorder - stable 5. 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 Bipolar I disorder - recurrent depression - Lamotrigine 150 mg twice a day discuss rx and educated with patient seen PCP and labs PCP Lamotrigine 150 mg twice a day- improved depression Lamotrigine lamotrigine has a serious rashes requiring hospitalization and discontinue treatment including Dimitris Alcides syndrome rare case of toxic epidermal necrolysis and cache related deaths. Incidence with adjunct of epilepsy treatment 0.8% in 2 to 16 years old and 0.3% in adults, bipolar and other mood disorders incidence 0.8% this initial monotherapy and 0.13% as adjunctive treatment. Other risk factor may include concomitant use of valproate acid derivative or exceeding initial lamotrigine does or does as clinician recommendation; most life-threatening rash of occurring first 2 to 8 week of treatment with isolated cases after prolonged treatment; though benign may occur, discontinue treatment at first sign of rash unless clearly not a drug related; TC treatment may not prevent trash from becoming life-threatening or permanently disabling or disfiguring. Comment reaction include, nausea/vomiting, dizziness/vertigo , visual disturbances, somnolence, ataxia, pruritus/rash, pharyngitis, headache, rhinitis, diarrhea, fever, asthenia, insomnia, tremor, abdominal pain, cough, accidental injury, constipation, dysmenorrhea, incoordination, anxiety, seizures, irritability, anorexia, xerostomia, and photosensitivity. Serious reactions include: Rash, severe; Schneider Alcides syndrome; toxic epidermal necrosis; injury edema, hypersensitivity reactions. Including fatal, multiple organ failure to safe fatal, rash with eosinophilia systemic symptoms, DIC, neutropenia, leukopenia, thrombocytopenia, pancytopenia, aplastic anemia, hemolytic anemia, i pancreatitis, hepatic failure, rhabdomyolysis, worsening of suicidal ideation, worsening of depression, cleft lip/palate [first trimester use] DO not Change Cosmetic, perfumes or soap for next 4 weeks. The patient was advice to take lamotrigine as prescribed the patient was instructed not to deviate from the prescription dosages. Stop lamotrigine is the first sign of rash. Patient was insisted to inform office if any of the serious side effect develops. AIMS testing 04/25/20= 0 AIMS 09/13/20 =5 AIMS= 0 04/29/23 missing teeth monitor for depression and aaron educated on all medications, benefits, side effects and risk, and educated on depression, anxiety, and , mood d/o and educated on compliance of medications, metabolic and movement d/o education appointment's, continue therapy discussion with patient about course of treatmentand patient instructions. Prescription Monitoring Report reviewed 2. Generalized anxiety disorder - Lexapro 20 mg daily PCP prescribe Ativan 1 mg HS Buspar 10 mg twice day - discuss increase three times a day and patient does not want to increase therapy- patient refused Discussed and educated pt regarding benzodiazepines are generally not intended for prolonged use and that use can cause tolerance, dependence, depression, and associated memory issues including dementias (this list is not exhaustive). Benzodiazepine use is generally not recommended concurrently with pain medications and/or other controlled substances due to increased risks of profound sedation, respiratory depression, coma, and even . They are not to be used with any alcohol, as this combination can also be lethal. Patient was provided caution monitor for anxiety [facility] MAIL DELIVERY SLUMS= 25 11/28/23 3. Primary insomnia -Melatonin 3 mg OTC - sleep hygeine educated 4. Chronic post-traumatic stress disorder - stable 5. Long-term drug therapy 11/28/2023 Essential hypertension (ICD-10 - I10) 1. Bipolar I disorder - recurrent depression - Lamotrigine 150 mg twice a day discuss rx and educated with patient seen PCP and labs obtain PCP Lamotrigine 150 mg twice a day- improved depression Lamotrigine lamotrigine has a serious rashes requiring hospitalization and discontinue treatment including Dimitris Alcides syndrome rare case of toxic epidermal necrolysis and cache related deaths. Incidence with adjunct of epilepsy treatment 0.8% in 2 to 16 years old and 0.3% in adults, bipolar and other mood disorders incidence 0.8% this initial monotherapy and 0.13% as adjunctive treatment. Other risk factor may include concomitant use of valproate acid derivative or exceeding initial lamotrigine does or does as clinician recommendation; most life-threatening rash of occurring first 2 to 8 week of treatment with isolated cases after prolonged treatment; though benign may occur, discontinue treatment at first sign of rash unless clearly not a drug related; TC treatment may not prevent trash from becoming life-threatening or permanently disabling or disfiguring. Comment reaction include, nausea/vomiting, dizziness/vertigo , visual disturbances, somnolence, ataxia, pruritus/rash, pharyngitis, headache, rhinitis, diarrhea, fever, asthenia, insomnia, tremor, abdominal pain, cough, accidental injury, constipation, dysmenorrhea, incoordination, anxiety, seizures, irritability, anorexia, xerostomia, and photosensitivity. Serious reactions include: Rash, severe; Schneider Alcides syndrome; toxic epidermal necrosis; injury edema, hypersensitivity reactions. Including fatal, multiple organ failure to safe fatal, rash with eosinophilia systemic symptoms, DIC, neutropenia, leukopenia, thrombocytopenia, pancytopenia, aplastic anemia, hemolytic anemia, i pancreatitis, hepatic failure, rhabdomyolysis, worsening of suicidal ideation, worsening of depression, cleft lip/palate [first trimester use] DO not Change Cosmetic, perfumes or soap for next 4 weeks. The patient was advice to take lamotrigine as prescribed the patient was instructed not to deviate from the prescription dosages. Stop lamotrigine is the first sign of rash. Patient was insisted to inform office if any of the serious side effect develops. AIMS testing 04/25/20= 0 AIMS 09/13/20 =5 AIMS= 0 04/29/23 missing teeth monitor for depression and aarno educated on all medications, benefits, side effects and risk, and educated on depression, anxiety, and , mood d/o and educated on compliance of medications, metabolic and movement d/o education appointment's, continue therapy discussion with patient about course of treatmentand patient instructions. Prescription Monitoring Report reviewed 2. Generalized anxiety disorder - Lexapro 20 mg daily PCP prescribe Ativan 1 mg HS Buspar 10 mg twice day - discuss increase three times a day and patient does not want to increase therapy- patient refused Discussed and educated pt regarding benzodiazepines are generally not intended for prolonged use and that use can cause tolerance, dependence, depression, and associated memory issues including dementias (this list is not exhaustive). Benzodiazepine use is generally not recommended concurrently with pain medications and/or other controlled substances due to increased risks of profound sedation, respiratory depression, coma, and even . They are not to be used with any alcohol, as this combination can also be lethal. Patient was provided caution monitor for anxiety [facility] MAIL DELIVERY SLUMS= 25 11/28/23 3. Primary insomnia -Melatonin 3 mg OTC - sleep hygeine educated 4. Chronic post-traumatic stress disorder - stable 5. Long-term drug therapy 03/23/2024 Essential hypertension (ICD-10 - I10) 1. Bipolar I disorder - recurrent depression - Lamotrigine 150 mg twice a day discuss rx and educated with patient seen PCP and labs obtain PCP Lamotrigine 150 mg twice a day- improved depression Lamotrigine lamotrigine has a serious rashes requiring hospitalization and discontinue treatment including Dimitris Alcides syndrome rare case of toxic epidermal necrolysis and cache related deaths. Incidence with adjunct of epilepsy treatment 0.8% in 2 to 16 years old and 0.3% in adults, bipolar and other mood disorders incidence 0.8% this initial monotherapy and 0.13% as adjunctive treatment. Other risk factor may include concomitant use of valproate acid derivative or exceeding initial lamotrigine does or does as clinician recommendation; most life-threatening rash of occurring first 2 to 8 week of treatment with isolated cases after prolonged treatment; though benign may occur, discontinue treatment at first sign of rash unless clearly not a drug related; TC treatment may not prevent trash from becoming life-threatening or permanently disabling or disfiguring. Comment reaction include, nausea/vomiting, dizziness/vertigo , visual disturbances, somnolence, ataxia, pruritus/rash, pharyngitis, headache, rhinitis, diarrhea, fever, asthenia, insomnia, tremor, abdominal pain, cough, accidental injury, constipation, dysmenorrhea, incoordination, anxiety, seizures, irritability, anorexia, xerostomia, and photosensitivity. Serious reactions include: Rash, severe; Schneider Alcides syndrome; toxic epidermal necrosis; injury edema, hypersensitivity reactions. Including fatal, multiple organ failure to safe fatal, rash with eosinophilia systemic symptoms, DIC, neutropenia, leukopenia, thrombocytopenia, pancytopenia, aplastic anemia, hemolytic anemia, i pancreatitis, hepatic failure, rhabdomyolysis, worsening of suicidal ideation, worsening of depression, cleft lip/palate [first trimester use] DO not Change Cosmetic, perfumes or soap for next 4 weeks. The patient was advice to take lamotrigine as prescribed the patient was instructed not to deviate from the prescription dosages. Stop lamotrigine is the first sign of rash. Patient was insisted to inform office if any of the serious side effect develops. AIMS testing 04/25/20= 0 AIMS 09/13/20 =5 AIMS= 0 04/29/23 missing teeth monitor for depression and aaron educated on all medications, benefits, side effects and risk, and educated on depression, anxiety, and , mood d/o and educated on compliance of medications, metabolic and movement d/o education appointment's, continue therapy discussion with patient about course of treatmentand patient instructions. Prescription Monitoring Report reviewed 2. Generalized anxiety disorder - Lexapro 20 mg daily PCP prescribe Ativan 1 mg HS Buspar 10 mg twice day - discuss increase three times a day and patient does not want to increase therapy- patient refused Discussed and educated pt regarding benzodiazepines are generally not intended for prolonged use and that use can cause tolerance, dependence, depression, and associated memory issues including dementias (this list is not exhaustive). Benzodiazepine use is generally not recommended concurrently with pain medications and/or other controlled substances due to increased risks of profound sedation, respiratory depression, coma, and even . They are not to be used with any alcohol, as this combination can also be lethal. Patient was provided caution monitor for anxiety [facility] MAIL DELIVERY SLUMS= 25 11/28/23 3. Primary insomnia -Melatonin 3 mg OTC - sleep hygeine educated 4. Chronic post-traumatic stress disorder - stable 5. Long-term drug therapy 06/22/2024 Essential hypertension (ICD-10 - I10) 1. Bipolar I disorder - recurrent depression - Lamotrigine 150 mg twice a day discuss rx and educated with patient seen PCP and labs PCP Lamotrigine 150 mg twice a day- improved depression Lamotrigine lamotrigine has a serious rashes requiring hospitalization and discontinue treatment including Dimitris Alcides syndrome rare case of toxic epidermal necrolysis and cache related deaths. Incidence with adjunct of epilepsy treatment 0.8% in 2 to 16 years old and 0.3% in adults, bipolar and other mood disorders incidence 0.8% this initial monotherapy and 0.13% as adjunctive treatment. Other risk factor may include concomitant use of valproate acid derivative or exceeding initial lamotrigine does or does as clinician recommendation; most life-threatening rash of occurring first 2 to 8 week of treatment with isolated cases after prolonged treatment; though benign may occur, discontinue treatment at first sign of rash unless clearly not a drug related; TC treatment may not prevent trash from becoming life-threatening or permanently disabling or disfiguring. Comment reaction include, nausea/vomiting, dizziness/vertigo , visual disturbances, somnolence, ataxia, pruritus/rash, pharyngitis, headache, rhinitis, diarrhea, fever, asthenia, insomnia, tremor, abdominal pain, cough, accidental injury, constipation, dysmenorrhea, incoordination, anxiety, seizures, irritability, anorexia, xerostomia, and photosensitivity. Serious reactions include: Rash, severe; Schneider Alcides syndrome; toxic epidermal necrosis; injury edema, hypersensitivity reactions. Including fatal, multiple organ failure to safe fatal, rash with eosinophilia systemic symptoms, DIC, neutropenia, leukopenia, thrombocytopenia, pancytopenia, aplastic anemia, hemolytic anemia, i pancreatitis, hepatic failure, rhabdomyolysis, worsening of suicidal ideation, worsening of depression, cleft lip/palate [first trimester use] DO not Change Cosmetic, perfumes or soap for next 4 weeks. The patient was advice to take lamotrigine as prescribed the patient was instructed not to deviate from the prescription dosages. Stop lamotrigine is the first sign of rash. Patient was insisted to inform office if any of the serious side effect develops. AIMS testing 04/25/20= 0 AIMS 09/13/20 =5 AIMS= 0 04/29/23 missing teeth monitor for depression and aaron educated on all medications, benefits, side effects and risk, and educated on depression, anxiety, and , mood d/o and educated on compliance of medications, metabolic and movement d/o education appointment's, continue therapy discussion with patient about course of treatmentand patient instructions. Prescription Monitoring Report reviewed 2. Generalized anxiety disorder - Lexapro 20 mg daily PCP prescribe Ativan 1 mg HS Buspar 10 mg twice day - discuss increase three times a day and patient does not want to increase therapy- patient refused Discussed and educated pt regarding benzodiazepines are generally not intended for prolonged use and that use can cause tolerance, dependence, depression, and associated memory issues including dementias (this list is not exhaustive). Benzodiazepine use is generally not recommended concurrently with pain medications and/or other controlled substances due to increased risks of profound sedation, respiratory depression, coma, and even . They are not to be used with any alcohol, as this combination can also be lethal. Patient was provided caution monitor for anxiety [facility] MAIL DELIVERY SLUMS= 25 11/28/23 3. Primary insomnia -Melatonin 3 mg OTC - sleep hygeine educated 4. Chronic post-traumatic stress disorder - stable 5. Long-term drug therapy 06/22/2024 Encounter for screening for cardiovascular disorders (ICD-10 - Z13.6) 1. Bipolar I disorder - recurrent depression - Lamotrigine 150 mg twice a day discuss rx and educated with patient seen PCP and labs PCP Lamotrigine 150 mg twice a day- improved depression Lamotrigine lamotrigine has a serious rashes requiring hospitalization and discontinue treatment including Dimitris Alcides syndrome rare case of toxic epidermal necrolysis and cache related deaths. Incidence with adjunct of epilepsy treatment 0.8% in 2 to 16 years old and 0.3% in adults, bipolar and other mood disorders incidence 0.8% this initial monotherapy and 0.13% as adjunctive treatment. Other risk factor may include concomitant use of valproate acid derivative or exceeding initial lamotrigine does or does as clinician recommendation; most life-threatening rash of occurring first 2 to 8 week of treatment with isolated cases after prolonged treatment; though benign may occur, discontinue treatment at first sign of rash unless clearly not a drug related; TC treatment may not prevent trash from becoming life-threatening or permanently disabling or disfiguring. Comment reaction include, nausea/vomiting, dizziness/vertigo , visual disturbances, somnolence, ataxia, pruritus/rash, pharyngitis, headache, rhinitis, diarrhea, fever, asthenia, insomnia, tremor, abdominal pain, cough, accidental injury, constipation, dysmenorrhea, incoordination, anxiety, seizures, irritability, anorexia, xerostomia, and photosensitivity. Serious reactions include: Rash, severe; Schneider Alcides syndrome; toxic epidermal necrosis; injury edema, hypersensitivity reactions. Including fatal, multiple organ failure to safe fatal, rash with eosinophilia systemic symptoms, DIC, neutropenia, leukopenia, thrombocytopenia, pancytopenia, aplastic anemia, hemolytic anemia, i pancreatitis, hepatic failure, rhabdomyolysis, worsening of suicidal ideation, worsening of depression, cleft lip/palate [first trimester use] DO not Change Cosmetic, perfumes or soap for next 4 weeks. The patient was advice to take lamotrigine as prescribed the patient was instructed not to deviate from the prescription dosages. Stop lamotrigine is the first sign of rash. Patient was insisted to inform office if any of the serious side effect develops. AIMS testing 04/25/20= 0 AIMS 09/13/20 =5 AIMS= 0 04/29/23 missing teeth monitor for depression and aaron educated on all medications, benefits, side effects and risk, and educated on depression, anxiety, and , mood d/o and educated on compliance of medications, metabolic and movement d/o education appointment's, continue therapy discussion with patient about course of treatmentand patient instructions. Prescription Monitoring Report reviewed 2. Generalized anxiety disorder - Lexapro 20 mg daily PCP prescribe Ativan 1 mg HS Buspar 10 mg twice day - discuss increase three times a day and patient does not want to increase therapy- patient refused Discussed and educated pt regarding benzodiazepines are generally not intended for prolonged use and that use can cause tolerance, dependence, depression, and associated memory issues including dementias (this list is not exhaustive). Benzodiazepine use is generally not recommended concurrently with pain medications and/or other controlled substances due to increased risks of profound sedation, respiratory depression, coma, and even . They are not to be used with any alcohol, as this combination can also be lethal. Patient was provided caution monitor for anxiety [facility] MAIL DELIVERY SLUMS= 25 11/28/23 3. Primary insomnia -Melatonin 3 mg OTC - sleep hygeine educated 4. Chronic post-traumatic stress disorder - stable 5. Long-term drug therapy 11/28/2023 Other referral to the local chapter or national office of the Alzheimer's Association ( ; http://www.alz.org), the Alzheimer's [facility] ([facility]) ( ; http://www.livan.nih.go v/Alzheimers/), 1. Bipolar I disorder - recurrent depression - Lamotrigine 150 mg twice a day discuss rx and educated with patient seen PCP and labs obtain PCP Lamotrigine 150 mg twice a day- improved depression Lamotrigine lamotrigine has a serious rashes requiring hospitalization and discontinue treatment including Dimitris Alcides syndrome rare case of toxic epidermal necrolysis and cache related deaths. Incidence with adjunct of epilepsy treatment 0.8% in 2 to 16 years old and 0.3% in adults, bipolar and other mood disorders incidence 0.8% this initial monotherapy and 0.13% as adjunctive treatment. Other risk factor may include concomitant use of valproate acid derivative or exceeding initial lamotrigine does or does as clinician recommendation; most life-threatening rash of occurring first 2 to 8 week of treatment with isolated cases after prolonged treatment; though benign may occur, discontinue treatment at first sign of rash unless clearly not a drug related; TC treatment may not prevent trash from becoming life-threatening or permanently disabling or disfiguring. Comment reaction include, nausea/vomiting, dizziness/vertigo , visual disturbances, somnolence, ataxia, pruritus/rash, pharyngitis, headache, rhinitis, diarrhea, fever, asthenia, insomnia, tremor, abdominal pain, cough, accidental injury, constipation, dysmenorrhea, incoordination, anxiety, seizures, irritability, anorexia, xerostomia, and photosensitivity. Serious reactions include: Rash, severe; Schneider Alcides syndrome; toxic epidermal necrosis; injury edema, hypersensitivity reactions. Including fatal, multiple organ failure to safe fatal, rash with eosinophilia systemic symptoms, DIC, neutropenia, leukopenia, thrombocytopenia, pancytopenia, aplastic anemia, hemolytic anemia, i pancreatitis, hepatic failure, rhabdomyolysis, worsening of suicidal ideation, worsening of depression, cleft lip/palate [first trimester use] DO not Change Cosmetic, perfumes or soap for next 4 weeks. The patient was advice to take lamotrigine as prescribed the patient was instructed not to deviate from the prescription dosages. Stop lamotrigine is the first sign of rash. Patient was insisted to inform office if any of the serious side effect develops. AIMS testing 04/25/20= 0 AIMS 09/13/20 =5 AIMS= 0 04/29/23 missing teeth monitor for depression and aaron educated on all medications, benefits, side effects and risk, and educated on depression, anxiety, and , mood d/o and educated on compliance of medications, metabolic and movement d/o education appointment's, continue therapy discussion with patient about course of treatmentand patient instructions. Prescription Monitoring Report reviewed 2. Generalized anxiety disorder - Lexapro 20 mg daily PCP prescribe Ativan 1 mg HS Buspar 10 mg twice day - discuss increase three times a day and patient does not want to increase therapy- patient refused Discussed and educated pt regarding benzodiazepines are generally not intended for prolonged use and that use can cause tolerance, dependence, depression, and associated memory issues including dementias (this list is not exhaustive). Benzodiazepine use is generally not recommended concurrently with pain medications and/or other controlled substances due to increased risks of profound sedation, respiratory depression, coma, and even . They are not to be used with any alcohol, as this combination can also be lethal. Patient was provided caution monitor for anxiety [facility] MAIL DELIVERY SLUMS= 25 11/28/23 3. Primary insomnia -Melatonin 3 mg OTC - sleep hygeine educated 4. Chronic post-traumatic stress disorder - stable 5. Long-term drug therapy Plan Of Treatment Next Appt Details Provider Name:Mona Bertrand , 09/22/2024 01:00:00 PM, [address], [facility] [address], [place], [address], Insurance Providers Payer Name Payer Address Payer Phone Subscriber Number Group Number Insured Name Patient Relationship to Insured Coverage Start Date Coverage End Date [employer] Re[employer] t/Advant[employer] e - [place] [address] [address] [place] [address] [id number] MARIBEL BRANDT Self - patient is the insured Medical (General) History Medical History History ICD Code Problems: Bipolar disorder Bipolar I disorder Chronic post-traumatic stress disorder Generalized anxiety disorder History of SARS-CoV-2 Long-term drug therapy Normal grief reaction Primary insomnia hx TB Anxiety Disorder: Y Bipolar Disorder: Y Depression Major: Y Panic Episodes: Y PTSD: Y Alcoholism: Y GERD/Reflux: Y Headaches: Y Hepatitis: Y Hyperlipidemia: Y Hypertension: Y Hyperthyroidism: Y Obesity: Y Osteoarthritis: Y Vision or Eye Problems: Y - glasses Surgical History Surgery Date(Month/Year) Appendectomy (58925) Any surgical history Removal of gallbladder (95164) Hysterectomy/revise vagina (14057) Other Tonsilectomy/adenoids 02/11/1966 Appendectomy (01932) 01/11/1971 Removal of gallbladder (21552) 1
[2024-07-10 09:18] VITALS: BP 142/64; PULSE 64; RESP 16; TEMP 36.4; O2SAT 97; BMI 35.2
[2024-07-10] MEDS: LACTATED RINGERS 1,000 ML 150 ML IV CONT (09:29)
--- NOTE | 2024-07-10 10:17 | P.PNAN_ITS ---
Anes - Initial Pre Proc Eval Procedure: Operation Date: 07/10/24 10:00 Proposed Procedures p Esophagogastroduodenoscopy - Miguel Reyes MD Date/Time: 07/10/24 10:17 Surgeon: Miguel Reyes MD Pre Op Diagnosis: Other dysphagia, GERD w/o esophagitis Patient Data Age: 73 Gender: F Height: 1.73 m Weight: 105 kg Last Vital Signs Temp 97.5 F L 07/10/24 09:18 Pulse 64 07/10/24 09:18 Resp 16 07/10/24 09:18 BP 142/64 H 07/10/24 09:18 Pulse Ox 97 07/10/24 09:18 O2 Del Method Room Air 07/10/24 09:18 Allergies Allergy/AdvReac Type Severity Reaction Status Date / Time codeine Allergy Unknown Dermatitis, Verified 07/10/24 09:17 ITCHING, SHAKEY Iodinated Contrast Media Allergy Unknown Unknown Verified 07/10/24 09:17 ciprofloxacin Allergy Rash Verified 07/10/24 09:17 fentanyl AdvReac Unknown SHAKINESS, Verified 07/10/24 09:17 AGITATION ioversol AdvReac Unknown Dermatitis Verified 07/10/24 09:17 meperidine AdvReac Unknown NAUSEA/VOMI Verified 07/10/24 09:17 TING Contrast Media AdvReac Unknown Unknown Uncoded 07/10/24 09:17 Home Medications ?Medication ?Instructions ?Recorded ?Confirmed ?Type aspirin 81 mg tablet,delayed 81 mg PO HS 04/02/19 06/29/24 History release cholecalciferol (vitamin D3) 125 5,000 unit PO DAILY 06/17/19 06/29/24 History mcg (5,000 unit) tablet (Vitamin D3) nitroglycerin 0.4 mg sublingual 0.4 mg sublingual Q5M PRN chest 06/17/19 06/29/24 History tablet pain escitalopram oxalate 20 mg tablet 20 mg PO DAILY #90 tabs 04/20/21 06/29/24 Rx (Lexapro) buspirone 10 mg tablet 10 mg PO BID #180 tabs 07/03/21 06/29/24 Rx syringe with needle, safety 3 mL #12 ea 08/29/21 06/29/24 Rx 23 gauge x 1 (Monoject Safety Syringes) meclizine 25 mg tablet 25 mg PO TID PRN dizziness #30 tabs 03/27/22 06/29/24 Rx rosuvastatin 20 mg tablet (Crestor) 20 mg PO DAILY 08/13/22 06/29/24 History nystatin-triamcinolone 100,000 1 applic topical BID PRN rash #30 01/31/23 06/29/24 Rx unit/g-0.1 % topical cream grams cyanocobalamin (vitamin B-12) 1,000 mcg IM .Q2W #10 mL 02/05/23 06/29/24 Rx 1,000 mcg/mL injection solution lamotrigine 150 mg tablet 150 mg PO BID 08/29/23 06/29/24 History albuterol sulfate 90 mcg/actuation 2 inh inhalation QID PRN shortness 09/30/23 06/29/24 Rx aerosol inhaler of breath or wheezing #8.5 grams metoprolol succinate 25 mg 12.5 mg (1/2 x 25 mg) PO HS #90 10/07/23 07/10/24 Rx tablet,extended release 24 hr tabs syringe with needle, safety 3 mL #12 ea 02/03/24 06/29/24 Rx 23 gauge x 1 (BD Integra Syringe) lorazepam 1 mg tablet 1 mg PO BID PRN Anxiety #180 tabs 03/19/24 06/29/24 Rx lansoprazole 30 mg capsule,delayed 30 mg PO BID #180 caps 03/25/24 06/29/24 Rx release (Prevacid) telmisartan 20 mg tablet 20 mg PO DAILY #90 tabs 03/25/24 06/29/24 Rx fluconazole 150 mg tablet See Rx Instructions PO ONCE #2 tabs 05/06/24 06/29/24 Rx Patient hx anesthesia problems: none Family hx anesthesia problems: none Results Review: All pre-operative results and documents have been reviewed as part of the pre- operative evaluation. [facility] Past Medical History Medical History Candidiasis of female genitalia BMI 31.0-31.9,adult Colon cancer screening (01/29/19) 01/29/2019 polyp of the cecum with recheck in 7-10 years. Acute non-recurrent maxillary sinusitis Encounter for osteoporosis screening in asymptomatic postmenopausal patient DEXA scan on 04/28/2020 reveals T-score of 2.5 at the spine and -0.9 at the hips. BMI 32.0-32.9,adult Encounter for hepatitis C screening test for low risk patient BMI 33.0-33.9,adult At moderate risk for fall (07/27/22) tripped on a toy, right rib contusion 07/27/2022. Rib pain on right side (07/27/22) right anterior lateral lower ribs after fall on 07/27/2022. Chest x-ray with right rib series revealed no active lung disease and no evidence of rib fracture 07/30/2022. Diffuse degenerative changes of the thoracic spine. Acute bronchitis Obesity (BMI 30-39.9) Rash due to allergy Colitis Hepatic steatosis Elevated LFTs AST 16, ALT 21 on 12/15/2021. AST 15, ALT 17 on 07/26/2022. Obstructive sleep apnea Moderate sleep apnea on sleep study done in fall 2019. She does not use her CPAP. Arthritis COVID-19 (02/19/20) Seasonal allergies Upper respiratory infection with cough and congestion Takotsubo cardiomyopathy Echocardiogram 03/29/2021 with ejection fraction 60% and no valvular abnormalities. Chronic anxiety Dyslipidemia Diabetes mellitus Patient denies. Fasting glucose 99 on 07/26/2022. Surgical History Surgical History History of dilation and curettage History of carpal tunnel release of both wrists History of fundoplication History of ear surgery History of hysterectomy for benign disease History of tonsillectomy and adenoidectomy History of appendectomy History of cholecystectomy Family History Family History Grandparent Diabetes mellitus, Onset Age: 88 Acute myocardial infarction Mother Family history of elevated blood lipids Family history of cardiovascular disease Family history of cardiac disorder Family history of malignant neoplasm Father Family history of elevated blood lipids, Onset Age: 78 Family history of cardiovascular disease, Onset Age: 78 Family history of malignant neoplasm Sibling Family history of cardiovascular disease Family history of cardiac disorder Family history of malignant neoplasm Family history of chronic obstructive pulmonary disease Social History Social History Social History: Surrogate decision maker: Garret Fish, . Code status: Full code. Smoking packs per day: 2.5 Smoking cigarettes per day: 50.0 Years smoked: 25 Smoking pack-years: 62.50 Smoking status: Former smoker Tobacco type: cigarettes Second hand tobacco smoke exposure: No Alcohol intake: former Alcohol use details: no alcohol use for over 15 years Substance use: never Substance use type: does not use Lack of Transportation: No Lack of Food: Never True Current Housing: I Have Housing Concerned About Future Housing: No Difficulty Paying Gas/Electric Bills: No Difficulty Paying for Meds: No Currently Unemployed: No Education: High School Diploma/GED Difficulty w/ Childcare or Family Care: No Living arrangements: with family Additional living arrangements comments: The patient lives in [place] with her . 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 Gender identity (if verbalized by the patient): Female Spiritual care concerns: No Anes - Eval Final PreProcedure Day of Procedure 07/10/24 10:17 Patient weight: obese Lungs: normal air movement Airway: Mallampati scale class II Neurological: alert and oriented Last oral intake: >/= 8 hours ASA classification: III Emergent: no Anesthetic plan: proceed Anesthesia type and monitoring: general GIVS Results Review: All pre-operative results and documents have been reviewed as part of the pre- operative evaluation. BMI 35, JACQUI but noncompliant w CPAP, HTN, hyperlipidemia, hx of cardiomyopathy but most recent ECHO w nml LVEF. Informed Consent: The patient's anesthetic plan and its attendant risks and benefits were discussed with the patient/family/POA. Questions were solicited and answers provided to the satisfaction of the patient/family/POA.
--- NOTE | 2024-07-10 10:43 | PM.IMHP ---
H&P: [facility] History of Present Illness Date/Time: 07/10/24 10:43 Chief Complaint: Dysphagia Narrative: the patient had a surgical procedure in her lower esophagus in 1976, however it is not clear which kind of procedure was it exactly. She has been experiencing intermittent dysphagia for the past several years, to solids liquids and pills, having had endoscopies ruling out eosinophilic esophagitis in the past. She takes Lansoprazole for reflux control. She is referred for EGD. Review of Systems Review of Systems: All systems reviewed & are unremarkable except as noted in HPI and below PMFSH Past Medical History Medical History Candidiasis of female genitalia BMI 31.0-31.9,adult Colon cancer screening (01/29/19) 01/29/2019 polyp of the cecum with recheck in 7-10 years. Acute non-recurrent maxillary sinusitis Encounter for osteoporosis screening in asymptomatic postmenopausal patient DEXA scan on 04/28/2020 reveals T-score of 2.5 at the spine and -0.9 at the hips. BMI 32.0-32.9,adult Encounter for hepatitis C screening test for low risk patient BMI 33.0-33.9,adult At moderate risk for fall (07/27/22) tripped on a toy, right rib contusion 07/27/2022. Rib pain on right side (07/27/22) right anterior lateral lower ribs after fall on 07/27/2022. Chest x-ray with right rib series revealed no active lung disease and no evidence of rib fracture 07/30/2022. Diffuse degenerative changes of the thoracic spine. Acute bronchitis Obesity (BMI 30-39.9) Rash due to allergy Colitis Hepatic steatosis Elevated LFTs AST 16, ALT 21 on 12/15/2021. AST 15, ALT 17 on 07/26/2022. Obstructive sleep apnea Moderate sleep apnea on sleep study done in fall 2019. She does not use her CPAP. Arthritis COVID-19 (02/19/20) Seasonal allergies Upper respiratory infection with cough and congestion Takotsubo cardiomyopathy Echocardiogram 03/29/2021 with ejection fraction 60% and no valvular abnormalities. Chronic anxiety Dyslipidemia Diabetes mellitus Patient denies. Fasting glucose 99 on 07/26/2022. Surgical History Surgical History History of dilation and curettage History of carpal tunnel release of both wrists History of fundoplication History of ear surgery History of hysterectomy for benign disease History of tonsillectomy and adenoidectomy History of appendectomy History of cholecystectomy Family History Family History Grandparent Diabetes mellitus, Onset Age: 88 Acute myocardial infarction Mother Family history of elevated blood lipids Family history of cardiovascular disease Family history of cardiac disorder Family history of malignant neoplasm Father Family history of elevated blood lipids, Onset Age: 78 Family history of cardiovascular disease, Onset Age: 78 Family history of malignant neoplasm Sibling Family history of cardiovascular disease Family history of cardiac disorder Family history of malignant neoplasm Family history of chronic obstructive pulmonary disease Social History Social History Social History: Surrogate decision maker: Garret Fish, . Code status: Full code. Smoking packs per day: 2.5 Smoking cigarettes per day: 50.0 Years smoked: 25 Smoking pack-years: 62.50 Smoking status: Former smoker Tobacco type: cigarettes Second hand tobacco smoke exposure: No Alcohol intake: former Alcohol use details: no alcohol use for over 15 years Substance use: never Substance use type: does not use Lack of Transportation: No Lack of Food: Never True Current Housing: I Have Housing Concerned About Future Housing: No Difficulty Paying Gas/Electric Bills: No Difficulty Paying for Meds: No Currently Unemployed: No Education: High School Diploma/GED Difficulty w/ Childcare or Family Care: No Living arrangements: with family Additional living arrangements comments: The patient lives in [place] with her . 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 Gender identity (if verbalized by the patient): Female Spiritual care concerns: No Meds Home Medications and Allergies Home Medications ?Medication ?Instructions ?Recorded ?Confirmed ?Type aspirin 81 mg tablet,delayed 81 mg PO HS 04/02/19 06/29/24 History release cholecalciferol (vitamin D3) 125 5,000 unit PO DAILY 06/17/19 06/29/24 History mcg (5,000 unit) tablet (Vitamin D3) nitroglycerin 0.4 mg sublingual 0.4 mg sublingual Q5M PRN chest 06/17/19 06/29/24 History tablet pain escitalopram oxalate 20 mg tablet 20 mg PO DAILY #90 tabs 04/20/21 06/29/24 Rx (Lexapro) buspirone 10 mg tablet 10 mg PO BID #180 tabs 07/03/21 06/29/24 Rx syringe with needle, safety 3 mL #12 ea 08/29/21 06/29/24 Rx 23 gauge x 1 (Monoject Safety Syringes) meclizine 25 mg tablet 25 mg PO TID PRN dizziness #30 tabs 03/27/22 06/29/24 Rx rosuvastatin 20 mg tablet (Crestor) 20 mg PO DAILY 08/13/22 06/29/24 History nystatin-triamcinolone 100,000 1 applic topical BID PRN rash #30 01/31/23 06/29/24 Rx unit/g-0.1 % topical cream grams cyanocobalamin (vitamin B-12) 1,000 mcg IM .Q2W #10 mL 02/05/23 06/29/24 Rx 1,000 mcg/mL injection solution lamotrigine 150 mg tablet 150 mg PO BID 08/29/23 06/29/24 History albuterol sulfate 90 mcg/actuation 2 inh inhalation QID PRN shortness 09/30/23 06/29/24 Rx aerosol inhaler of breath or wheezing #8.5 grams metoprolol succinate 25 mg 12.5 mg (1/2 x 25 mg) PO HS #90 10/07/23 07/10/24 Rx tablet,extended release 24 hr tabs syringe with needle, safety 3 mL #12 ea 02/03/24 06/29/24 Rx 23 gauge x 1 (BD Integra Syringe) lorazepam 1 mg tablet 1 mg PO BID PRN Anxiety #180 tabs 03/19/24 06/29/24 Rx lansoprazole 30 mg capsule,delayed 30 mg PO BID #180 caps 03/25/24 06/29/24 Rx release (Prevacid) telmisartan 20 mg tablet 20 mg PO DAILY #90 tabs 03/25/24 06/29/24 Rx fluconazole 150 mg tablet See Rx Instructions PO ONCE #2 tabs 05/06/24 06/29/24 Rx Allergies Allergy/AdvReac Type Severity Reaction Status Date / Time codeine Allergy Unknown Dermatitis, Verified 07/10/24 09:17 ITCHING, SHAKEY Iodinated Contrast Media Allergy Unknown Unknown Verified 07/10/24 09:17 ciprofloxacin Allergy Rash Verified 07/10/24 09:17 fentanyl AdvReac Unknown SHAKINESS, Verified 07/10/24 09:17 AGITATION ioversol AdvReac Unknown Dermatitis Verified 07/10/24 09:17 meperidine AdvReac Unknown NAUSEA/VOMI Verified 07/10/24 09:17 TING Contrast Media AdvReac Unknown Unknown Uncoded 07/10/24 09:17 Vital Signs Vital Signs - 24 hr 07/10/24 09:18 Temperature 97.5 F L Pulse Rate 64 Respiratory Rate 16 Blood Pressure 142/64 H Pulse Oximetry 97 Oxygen Delivery Room Air Exam Const: General: cooperative and healthy appearing Resp: Effort & Inspection: normal respiratory effort and able to speak in complete sentences Auscultation: clear to auscultation bilaterally Cardio: Rate: regular rate Rhythm: regular rhythm GI: Inspection: normal to inspection GI Palp: No No hepatosplenomegaly present Auscultation: normal bowel sounds Rectal Exam: deferred Skin: General skin exam: normal color Psych: Appearance: grossly normal Mental Status: mental status grossly normal Assessment and Plan Assessment and plan (1) Dysphagia: Qualifiers: Dysphagia type: esophageal phase Qualified Code(s): R13.19 - Other dysphagia Code(s): R13.10 - Dysphagia, unspecified Status: Acute Assessment and Plan: The patient is deemed a good candidate for the procedure. Consent signed. Will proceed.
[2024-07-10] MEDS: BENZOCAINE (*SP) 60 ML SPRAY CAN (HURRICAINE) 1 SPRAY MUCOUS MEM (10:54)
[2024-07-10 11:07] VITALS: BP 109/59; PULSE 60; RESP 22; O2SAT 99
[2024-07-10 11:17] VITALS: BP 125/53; PULSE 60; RESP 23; O2SAT 99
[2024-07-10 11:27] VITALS: BP 157/67; PULSE 60; RESP 16; O2SAT 99
== END 2024-07-10 11:35 | disposition home or self-care (01) ==
PROVIDERS: PCP Family Medicine; Referring Provider Nurse Practitioner Family; Visit Provider Internal Medicine Gastroenterology
PROC: 0DJ08ZZ Inspection of Upper Intestinal Tract, Via Natural or Artificial Opening Endoscopic (ICD-10-PCS; CPT 43235; principal; 2024-07-10 10:00)
DX: R13.10 Dysphagia, unspecified (principal); K44.9 Diaphragmatic hernia without obstruction or gangrene; K29.30 Chronic superficial gastritis without bleeding; Z87.891 Personal history of nicotine dependence; E66.9 Obesity, unspecified; Z68.35 Body mass index [BMI] 35.0-35.9, adult
CPT/HCPCS: 43235; J2003; J2704; J7120

== ENCOUNTER 2024-10-02 08:25 | Outpatient (CLI) | payer MEDICARE, SELFPAY ==
--- OUTSIDE RECORDS SUMMARY | 2002-01-21 03:45 | XMS_ITS | Continuity of Care Document ---
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 [address] [facility], [place], [address], [place]. tel: [phone] Family History Family Member Type Diagnosis Age At Onset No Information Payers Payer name Insurance type Covered constitution party ID Authoriza tion(s) [place] [id number] Social History Type Description Quantity Date Captured [...]
--- NOTE | ~2024-10-02 | US_ITS ---
US right upper quadrant INDICATION: Right upper quadrant pain PROCEDURE: Realtime right upper abdominal ultrasound. COMPARISON: No prior studies for comparison. FINDINGS: The pancreas is normal without focal mass or pancreatic ductal dilation. Liver echotexture is increased, consistent with fatty infiltration. There is normal directional flow in the portal vein. Gallbladder is surgically absent. Common bile duct measures 6 mm. sign. IMPRESSION: 1: Fatty infiltration of the liver. Reviewed, dictated and finalized at location O.
--- OUTSIDE RECORDS SUMMARY | 2024-10-02 08:28 | XMS_ITS | Encounter Summary ---
Author Organization [facility] Address [address] [place] [id number] Care Team Providers Care Wind Plant Manager Name Role Phone Tony Fall MD Primary Care Provider [phone] Encounter Details Date Type Department Care Team (Late st Contact Info) Description 03/21/2019 Hospital Follow-up Call [facility] Telemetry [address] [place], [place] [id number] Marguerite Sorto, Refrigeration Technician Social History Tobacco Use Types Packs/Day Years Used Date Smoking Tobacco: Former Cigarettes 2 15 0 03/19/1980 - 03/19/1995 Smokeless Tobacco: Never Alcohol Use Standard Drinks/Week Comments Not Currently 0 (1 standard drink = 0.6 oz pur e alcohol) Humiliation, Afraid, Rape, and Kick questionnair e Answer Date Recorded Fear of Current or Ex-Partner No Emotionally Abused No 03/19/2019 Physically Abused No 03/19/2019 Sexually Abused No 03/19/2019 Social Connection and Isolation Panel [NHANES] A nswer Date Recorded Frequency of Communication w ith Friends and Family Once a week 03/19/2019 Frequency of Social Gatherin gs with Friends and Family Once a week 03/19/2019 Attends Hindu Services 1 to 4 times per year 03/19/2019 Active Member of Clubs or Organizations No 03/19/2019 Attends Club or Organization Meetings Never 03/19/2019 Marital Status 03/19/2019 Overall Financial Resource Strain (CARDIA) Answe r Date Recorded Difficulty of Paying Living Expenses Not hard at all 03/19/2019 [facility] - Occupational Stress Questionnaire Answer Date Recorded Feeling of Stress Only a little 03/19/2019 Exercise Vital Sign Answer Date Recorde d Days of Exercise per Week 1 day 2019 Minutes of Exercise per Session 30 min 03/19/2019 Hunger Vital Sign Answer Date Recorded Worried About Running Out of Food in the Last Ye ar Never true 03/19/2019 Ran Out of Food in the Last Year Never true 03/19/2019 PRAPARE - Transportation Answer Date Re corded Lack of Transportation (Medical) No 03/19/2019 Lack of Transportation (Non-Medical) No 03/19/2019 Comments Unknown Sex and Gender Information Value Date Recorded Sex Assigned at Not on file Legal Sex Female 1:48 PM TIE LAYER Gender Identity Not on file Sexual Orientation Not on file documented as of this encounter Functional Status * RETIRED Are you deaf or do you have serious difficulty hearing Answer Date of Assessment Author Status No 03/19/2019 11:58 AM TIE LAYER Acti ve * RETIRED Are you blind or do you have serious difficulty seeing, even when wearing glasses? Answer Date of Assessment Author Status No 03/19/2019 11:58 AM TIE LAYER Acti ve * Do you have serious difficulty walking or climbing stairs? Answer Date of Assessment Author Status No 03/19/2019 11:58 AM Kiesha Quintanilla RN Active * Do you have difficulty dressing or bathing? Answer Date of Assessment Author Status No 03/19/2019 11:58 AM Kiesha Quintanilla RN Active * Because of a physical, mental, or emotional condition, do you have difficulty doing errands alone such as visiting a doctor's office or shopping? Answer Date of Assessment Author Status No 03/19/2019 11:58 AM Kiesha Quintanilla RN Active documented as of this encounter Mental Status * Because of a physical, mental, or emotional condition, do you have serious difficulty concentrating, remembering, or making decisions? Answer Entry Date Author Status No 03/19/2019 11:58 AM Kiesha Quintanilla RN Active documented in this encounter Plan of Treatment Not on file documented as of this encounter Visit Diagnoses Not on filedocumented in this encounter Care Teams Wind Plant Manager Relationship Specialty Start Date End Date Tony Fall MD [address] [place] [address] [address] [place] [address] PCP - General FAMILY PRACTICE 03/19/19 documented as of this encounter
--- OUTSIDE RECORDS SUMMARY | 2024-10-02 08:29 | XMS_ITS | Patient Health Record ---
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 Telephone Name Role Phone Tony Fall MD Primary Care Provider Mona Laureano Unavailable [phone] Allergies Allergen (clinical drug ingredient) Drug/Non Drug [...] Duration) Notes Start Date End Date Status lamoTRIgine 150 MG Tablet 1 tablet Oral twice a day; Duration: 90 days Active Nystatin-Triamcinolone 619381-6.1 UNIT/GM Cream External; Duration: 15 Days PRN Active Rosuvastatin Calcium 40 MG Tablet Oral; Duration: 90 Days Acti ve Cyanocobalamin 1000 MCG/ML Solution Injection; Duration: 84 Days Active Caplyta 10.5 MG Capsule take 1 capsule i n evening Orally daily; Duration: 30 days Active Escitalopram Oxalate 20 MG Tablet 1 tablet Oral Once a day; Duration: 90 days Active busPIRone HCl 10 MG Tablet 1 tablet Oral Twice a day; Duration: 90 days 12/21/2024 Active Telmisartan 20 MG Tablet Oral; Duration: 90 Days Active Metoprolol Succinate ER 25 MG Tablet Extended Release 24 Hour Oral; Duration: 90 Days Acti ve Lansoprazole 30 MG Capsule Delayed Release Oral; Duration: 90 Days A ctive LORazepam 1 MG Tablet Oral; Duration: 30 Days Active Immunizations Vaccine Route Administration Date Status [...] History Observation Description Sex Assigned At Female Social History Household: Social Info Question Answer Notes Household Marital status: Number of adults in household: 2 Number of children in household: 0 1 SON 1 son in care home 1 grandson adopted Drug/Alcohol: Social Info Question Answer Notes Drugs Have you used drugs other than those for medical reasons in the past 12 months? No AUDIT-C (Standard) Did you have a drink containing alcohol in the past year? No Caffeine Intake: 2-3 cups per day Tobacco Use: Social Info Question Answer Notes Tobacco Control (Standard) How long has it been since you last smoked? Greater than 10 years Tobacco use: Former smoker Additional Details Category Social Info Options Details Migrated Social History Migrated Social History Alcohol Intake: None 06/01/2019,Tobacco Years: Former smoker 06/01/2019,Smoking Status: 20 03/04/2023 Drug/Alcohol: Do you smoke marijuana? Den ies Do you drink alcohol? No Problems Problem Type SNOMED Code ICD Code Onset Dates Problem Status W/U Status Risk Notes Problem Generalized anxiety disorder (79804472) Generalized anxiety disorder (F41.1) 04/29/19 Active confirmed Problem Posttraumatic stress disorder (50987982) Post-traumatic stress disorder, chronic (F43.12) 04/29/19 Active confirmed Problem Primary insomnia (4045726) Primary insomnia (F51.01) 04/29/19 Active confirmed Problem Screening for cardiovascular system disease (021093713) Encounter for screening for cardiovascular disorders (Z13.6) Active confirmed Problem Long-term current use of drug therapy (431914927) Other halfway (current) drug therapy (Z79.899) 04/29/19 24 Active confirmed Problem Depression Screening (183907250) Encounter for screening for depression (Z13.31) Active confirmed Problem Bipolar disorder (99368112) Bipolar disorder with depression (F31.9) Active confirmed Problem Essential hypertension (79223318) Essential hypertension (I10) Active confirmed Vital Signs Heart Rate 70 /min 09/22/2024 Respiratory Rate 20 /min 09/22/2024 Height-cm 172.72 cm 09/22/2024 Blood pressure diastolic 68 mm Hg 09/22/2024 Weight-kg 107.05 kg 09/22/2024 Height 68.00 in 09/22/2024 Blood pressure systolic 122 mm Hg 09/22/2024 Weight 236 lbs 09/22/2024 BMI 35.88 kg/m2 09/22/2024 Encounters Encounter Location Date Provider Diagnosis [facility] [address] [address] 11/28/2023 Mona Bertrand Bipolar disorder wit h depression F31.9 ; Generalized anxiety disorder F41.1 ; Primary insomnia F51.01 ; Post-traumatic stress disorder, chronic F43.12 ; Other halfway (current) drug therapy Z79.899 and Essential hypertension I10 [facility] [employer] [address] 03/23/2024 Mona Bertrand Bipolar disorder wit h depression F31.9 ; Generalized anxiety disorder F41.1 ; Primary insomnia F51.01 ; Post-traumatic stress disorder, chronic F43.12 ; Other halfway (current) drug therapy Z79.899 and Essential hypertension I10 [facility] [id number] [facility] [address] [address] 06/22/2024 Mona Bertrand Encounter for screen ing for depression Z13.31 ; Bipolar disorder with depression F31.9 ; Generalized anxiety disorder F41.1 ; Primary insomnia F51.01 ; Post-traumatic stress disorder, chronic F43.12 ; Other rn neurosurgical (current) drug therapy Z79.899 ; Essential hypertension I10 and Encounter for screening for cardiovascular disorders Z13.[address] [facility] [address] [place] [address] 09/22/2024 Mona Bertrand Encounter for screen ing for depression Z13.31 ; Bipolar disorder with depression F31.9 ; Generalized anxiety disorder F41.1 ; Primary insomnia F51.01 ; Post-traumatic stress disorder, chronic F43.12 ; Other halfway (current) drug therapy Z79.899 ; Essential hypertension I10 and Encounter for screening for cardiovascular disorders Z13.6 [place] [address] [place] [address] 07/07/2024 Mona Bertrand Generalized anxiety disorder F41.1 [place] [address] [place] [address] 07/07/2024 Mona Bertrand Generalized anxiety disorder F41.1 Assessments Encounter Date Diagnosis (ICD Code) Assessment Notes Treatment Notes Treatment Clinical Notes Section Notes 11/28/2023 Generalized anxiety disorder (ICD-10 - F41.1) [...] Patient was provided caution monitor for anxiety [facility] MAIL DELIVERY SLUMS= 25 11/28/23 3. [...] Patient was provided caution monitor for anxiety [facility] MAIL DELIVERY SLUMS= 25 11/28/23 3. Primary insomnia -Melatonin 3 mg OTC - sleep hygeine educated 4. Chronic post-traumatic stress disorder - stable 5. Long-term drug therapy 06/22/2024 Encounter for screening for depression (ICD-10 [...] Patient was provided caution monitor for anxiety [facility] MAIL DELIVERY SLUMS= 25 11/28/23 3. [...] Patient was provided caution monitor for anxiety [facility] MAIL DELIVERY SLUMS= 25 11/28/23 3. Primary insomnia -Melatonin 3 mg OTC - sleep hygeine educated 4. Chronic post-traumatic stress disorder - stable 5. Long-term drug therapy 07/07/2024 Generalized anxiety disorder (ICD-10 - F41.1) 07/07/2024 Generalized anxiety disorder (ICD-10 - F41.1) 09/22/2024 Encounter for screening for depression (ICD-10 - Z13.31) 1. Bipolar I disorder - recurrent depression - discuss and educated on Add Caplyta 10.5 mg with evening meal - samples given 1 month Lamotrigine 150 mg twice a day discuss rx and educated with patient PCP labs obtain Lamotrigine 150 mg twice a day- improved [...] 09/13/20 =5 AIMS= 0 04/29/23 missing teeth AIMS= 0 09/22/24 missing teeth monitor for depression and aaron [...] HS Buspar 10 mg twice day - three times a day and patient does [...] Patient was provided caution monitor for anxiety [facility] MAIL DELIVERY SLUMS= 25 11/28/23 SLUMS= 25 09/22/24 3. Primary insomnia -Melatonin 3 mg OTC - sleep hygeine educated 4. Chronic post-traumatic stress disorder - stable 5. Long-term drug therapy 03/23/2024 Bipolar disorder with depression [...] Patient was provided caution monitor for anxiety [facility] MAIL DELIVERY SLUMS= 25 11/28/23 3. Primary insomnia -Melatonin 3 mg OTC - sleep hygeine educated 4. Chronic post-traumatic stress disorder - stable 5. Long-term drug therapy 09/22/2024 Bipolar disorder with depression (ICD-10 - F31.9) 1. Bipolar I disorder - recurrent depression - discuss and educated on Add Caplyta 10.5 mg with evening meal - samples given 1 month Lamotrigine 150 mg twice a day discuss rx and educated with patient PCP labs obtain Lamotrigine 150 mg twice a day- improved [...] 09/13/20 =5 AIMS= 0 04/29/23 missing teeth AIMS= 0 09/22/24 missing teeth monitor for depression and aaron [...] HS Buspar 10 mg twice day - three times a day and patient does [...] Patient was provided caution monitor for anxiety [facility] MAIL DELIVERY SLUMS= 25 11/28/23 SLUMS= 25 09/22/24 3. Primary insomnia -Melatonin 3 mg OTC [...] Patient was provided caution monitor for anxiety [facility] MAIL DELIVERY SLUMS= 25 11/28/23 3. Primary insomnia -Melatonin 3 mg OTC - sleep hygeine educated 4. Chronic post-traumatic stress disorder - stable 5. Long-term drug therapy 06/22/2024 Generalized anxiety disorder (ICD-10 [...] Patient was provided caution monitor for anxiety [facility] MAIL DELIVERY SLUMS= 25 11/28/23 3. Primary insomnia -Melatonin 3 mg OTC - sleep hygeine educated 4. Chronic post-traumatic stress disorder - stable 5. Long-term drug therapy 11/28/2023 Primary insomnia (ICD-10 - [...] Patient was provided caution monitor for anxiety [facility] MAIL DELIVERY SLUMS= 25 11/28/23 3. [...] Patient was provided caution monitor for anxiety [facility] MAIL DELIVERY SLUMS= 25 11/28/23 3. Primary insomnia -Melatonin 3 mg OTC - sleep hygeine educated 4. Chronic post-traumatic stress disorder - stable 5. Long-term drug therapy 09/22/2024 Generalized anxiety disorder (ICD-10 - F41.1) 1. Bipolar I disorder - recurrent depression - discuss and educated on Add Caplyta 10.5 mg with evening meal - samples given 1 month Lamotrigine 150 mg twice a day discuss rx and educated with patient PCP labs obtain Lamotrigine 150 mg twice a day- improved [...] 09/13/20 =5 AIMS= 0 04/29/23 missing teeth AIMS= 0 09/22/24 missing teeth monitor for depression and aaron [...] HS Buspar 10 mg twice day - three times a day and patient does [...] Patient was provided caution monitor for anxiety [facility] MAIL DELIVERY SLUMS= 25 11/28/23 SLUMS= 25 09/22/24 3. Primary insomnia -Melatonin 3 mg OTC [...] Patient was provided caution monitor for anxiety [facility] MAIL DELIVERY SLUMS= 25 11/28/23 3. Primary insomnia -Melatonin 3 mg OTC - sleep hygeine educated 4. Chronic post-traumatic stress disorder - stable 5. Long-term drug therapy 03/23/2024 Primary insomnia (ICD-10 - [...] Patient was provided caution monitor for anxiety [facility] MAIL DELIVERY SLUMS= 25 11/28/23 3. [...] Patient was provided caution monitor for anxiety [facility] MAIL DELIVERY SLUMS= 25 11/28/23 3. Primary insomnia -Melatonin 3 mg OTC - sleep hygeine educated 4. Chronic post-traumatic stress disorder - stable 5. Long-term drug therapy 09/22/2024 Primary insomnia (ICD-10 - F51.01) 1. Bipolar I disorder - recurrent depression - discuss and educated on Add Caplyta 10.5 mg with evening meal - samples given 1 month Lamotrigine 150 mg twice a day discuss rx and educated with patient PCP labs obtain Lamotrigine 150 mg twice a day- improved [...] 09/13/20 =5 AIMS= 0 04/29/23 missing teeth AIMS= 0 09/22/24 missing teeth monitor for depression and aaron [...] HS Buspar 10 mg twice day - three times a day and patient does [...] Patient was provided caution monitor for anxiety [facility] MAIL DELIVERY SLUMS= 25 11/28/23 SLUMS= 25 09/22/24 3. Primary insomnia -Melatonin 3 mg OTC - sleep hygeine educated 4. Chronic post-traumatic stress disorder - stable 5. Long-term drug therapy 11/28/2023 Other halfway (current) drug [...] Patient was provided caution monitor for anxiety [facility] MAIL DELIVERY SLUMS= 25 11/28/23 3. Primary insomnia -Melatonin 3 mg OTC - sleep hygeine educated 4. Chronic post-traumatic stress disorder - stable 5. Long-term drug therapy 06/22/2024 Post-traumatic stress disorder, chronic [...] Patient was provided caution monitor for anxiety [facility] MAIL DELIVERY SLUMS= 25 11/28/23 3. [...] Patient was provided caution monitor for anxiety [facility] MAIL DELIVERY SLUMS= 25 11/28/23 3. Primary insomnia -Melatonin 3 mg OTC - sleep hygeine educated 4. Chronic post-traumatic stress disorder - stable 5. Long-term drug therapy 06/22/2024 Other rn neurosurgical (current) drug therapy (ICD-10 - Z79.899) 1. [...] Patient was provided caution monitor for anxiety [facility] MAIL DELIVERY SLUMS= 25 11/28/23 3. Primary insomnia -Melatonin 3 mg OTC - sleep hygeine educated 4. Chronic post-traumatic stress disorder - stable 5. Long-term drug therapy 09/22/2024 Post-traumatic stress disorder, chronic (ICD-10 - F43.12) 1. Bipolar I disorder - recurrent depression - discuss and educated on Add Caplyta 10.5 mg with evening meal - samples given 1 month Lamotrigine 150 mg twice a day discuss rx and educated with patient PCP labs obtain Lamotrigine 150 mg twice a day- improved [...] 09/13/20 =5 AIMS= 0 04/29/23 missing teeth AIMS= 0 09/22/24 missing teeth monitor for depression and aaron [...] HS Buspar 10 mg twice day - three times a day and patient does [...] Patient was provided caution monitor for anxiety [facility] MAIL DELIVERY SLUMS= 25 11/28/23 SLUMS= 25 09/22/24 3. Primary insomnia -Melatonin 3 mg OTC - sleep hygeine educated 4. Chronic post-traumatic stress disorder - stable 5. Long-term drug therapy 03/23/2024 Other halfway (current) drug therapy (ICD-10 - [...] Patient was provided caution monitor for anxiety [facility] MAIL DELIVERY SLUMS= 25 11/28/23 3. [...] Patient was provided caution monitor for anxiety [facility] MA[facility] DELIVERY SLUMS= 25 11/28/23 3. [...] Patient was provided caution monitor for anxiety [facility] MA[facility] DELIVERY SLUMS= 25 11/28/23 3. Primary insomnia -Melatonin 3 mg OTC - sleep hygeine educated 4. Chronic post-traumatic stress disorder - stable 5. Long-term drug therapy 09/22/2024 Other rn neurosurgical (current) drug therapy (ICD-10 - Z79.899) 1. Bipolar I disorder - recurrent depression - discuss and educated on Add Caplyta 10.5 mg with evening meal - samples given 1 month Lamotrigine 150 mg twice a day discuss rx and educated with patient PCP labs obtain Lamotrigine 150 mg twice a day- improved [...] 09/13/20 =5 AIMS= 0 04/29/23 missing teeth AIMS= 0 09/22/24 missing teeth monitor for depression and aaron [...] HS Buspar 10 mg twice day - three times a day and patient does [...] Patient was provided caution monitor for anxiety [facility] MA[facility] DELIVERY SLUMS= 25 11/28/23 SLUMS= 25 09/22/24 3. Primary insomnia -Melatonin 3 mg OTC - sleep hygeine educated 4. Chronic post-traumatic stress disorder - stable 5. Long-term drug therapy 09/22/2024 Essential hypertension (ICD-10 - I10) 1. Bipolar I disorder - recurrent depression - discuss and educated on Add Caplyta 10.5 mg with evening meal - samples given 1 month Lamotrigine 150 mg twice a day discuss rx and educated with patient PCP labs obtain Lamotrigine 150 mg twice a day- improved [...] 09/13/20 =5 AIMS= 0 04/29/23 missing teeth AIMS= 0 09/22/24 missing teeth monitor for depression and aaron [...] HS Buspar 10 mg twice day - three times a day and patient does [...] Patient was provided caution monitor for anxiety [facility] MA[facility] DELIVERY SLUMS= 25 11/28/23 SLUMS= 25 09/22/24 3. Primary insomnia -Melatonin 3 mg OTC [...] Patient was provided caution monitor for anxiety [facility] MAIL DELIVERY SLUMS= 25 11/28/23 3. Primary insomnia -Melatonin 3 mg OTC - sleep hygeine educated 4. Chronic post-traumatic stress disorder - stable 5. Long-term drug therapy 09/22/2024 Encounter for screening for cardiovascular disorders (ICD-10 - Z13.6) 1. Bipolar I disorder - recurrent depression - discuss and educated on Add Caplyta 10.5 mg with evening meal - samples given 1 month Lamotrigine 150 mg twice a day discuss rx and educated with patient PCP labs obtain Lamotrigine 150 mg twice a day- improved [...] 09/13/20 =5 AIMS= 0 04/29/23 missing teeth AIMS= 0 09/22/24 missing teeth monitor for depression and aaron [...] HS Buspar 10 mg twice day - three times a day and patient does [...] Patient was provided caution monitor for anxiety [facility] MA[facility] DELIVERY SLUMS= 11/28/23 SLUMS= 25 09/22/24 3. Primary insomnia -Melatonin 3 mg OTC - sleep hygeine educated 4. Chronic post-traumatic stress disorder - stable 5. Long-term drug therapy 11/28/2023 Other referral to the local chapter or national office of the Alzheimer's [employer] (5-174-740-390 0; http://www.alz .org), the Alzheimer's Disease Education and Referral Center (ADEFL) (6-340-573-438 0; http://www.livan .nih.gov/Alzhe imers/), 1. Bipolar I disorder - recurrent depression [...] Patient was provided caution monitor for anxiety [facility] MA[facility] DELIVERY SLUMS= 25 11/28/23 3. Primary insomnia -Melatonin 3 mg OTC - sleep hygeine educated 4. Chronic post-traumatic stress disorder - stable 5. Long-term drug therapy Plan Of Treatment Next Appt Details Provider Name:Mona Bertrand , 10/09/2024 01:15:00 PM, [address], [facility] [address], [place], [address], Insurance Providers Payer Name Payer Address Payer Phone Subscriber Number Group Number Insured Name Patient Relationship to Insured Coverage Start Date Coverage End Date [employer] Medicare Replacemen t/Advantag e - [place] [address] [address] [place] [address] [id number] BRANDT MARIBEL Self - patient is the insured Medical [...] - glasses Surgical History Surgery Date(Month/Year) Appendectomy (36800) Any surgical history Removal of gallbladder (91055) Hysterectomy/revise vagina (64350) Other Tonsilectomy/adenoids 02/11/1966 Appendectomy (63204) 01/11/1971 Removal of gallbladder (01078) 1
== END 2024-10-02 08:26 | disposition home or self-care (01) ==
PROVIDERS: PCP Family Medicine; Visit Provider Family Medicine
DX: R10.11 Right upper quadrant pain (principal); K76.0 Fatty (change of) liver, not elsewhere classified
CPT/HCPCS: 76705

== ENCOUNTER 2024-10-19 08:03 | Outpatient (CLI) | payer MEDICARE, SELFPAY ==
[2024-11-10 08:53] VITALS: BMI 35.4
--- NOTE | 2024-11-10 08:53 | P.SLEEP_ITS ---
Sleep Study Date of Study: 10/19/24 Ordering Provider: Tony Fall MD Interpreting Physician: Debbi Galvez DO Sleep Study Type: Split Polysomnogram Height: 1.73 m Weight: 105.687 kg Body Mass Index: 35.4 Neck Circumference (inches): 15 New Roads: 2 Reason for Sleep Study Previously diagnosed with sleep apnea and was on CPAP. Her machine stopped working recently so she disposed of it. She required a new study to get CPAP equipment. Sleep History The patient is a 73-year-old female that had a sleep study ordered her primary care physician for re-evaluation of sleep apnea. The patient was previously diagnosed with sleep apnea and was on CPAP until her machine malfunctioned. She occasionally awakens from sleep short of breath. She frequently awakens at night with heartburn, belching or cough. She frequently snores and is frequently loud enough that others complain. She occasionally has trouble sleeping when she has a cold. She occasionally wakes up gasping for air throughout the night. She occasionally sweats excessively at night. She occasionally has heart palpitations irregular heartbeats during the night. She occasionally falls asleep during the day but never while driving. She denies having trouble at school or work due to sleepiness. She denies sleep paralysis. She occasionally experiences vivid dreamlike scenes upon awakening or falling asleep. She denies feeling afraid of going to sleep. She occasionally has nightmares. She occasionally remembers her dreams. She frequently has thoughts racing through her mind. She occasionally feels sad, depressed and anxious. She occasionally has muscular tension. She occasionally notices parts of her body jerk. She occasionally has leg pain during the night. She constantly grinds her teeth during sleep and frequently awakens with morning jaw pain. She is constantly bothered by pain during the day and occasionally awakened by pain during the night. She constantly wakes up feeling stiff the morning. She constantly wakes up with sore or achy muscles. She constantly wakes up with pain in the neck, spine and other joints. She goes to bed between 8-11 p.m. on weekdays and an unspecified time on the weekends. He does not have a set time that it takes for her to fall asleep. She wakes up twice throughout the night to urinate and the amount of time it takes for her to fall back asleep is variable. She does not have a set wake up time in the morning. She does not stay in bed along after waking up in the morning. She currently lives with her . She will occasionally consume caffeinated beverages within 2 hours of bedtime. She denies engaging in physical exercise before bedtime. She denies reading and watching television before falling asleep. She will occasionally take naps in afternoon or the evening and they are occasionally refreshing. She consumes 2 cups of caffeinated beverage per day. She is a former smoker. She denies alcohol and recreational drug use. [facility] Past Medical History Medical History COPD (chronic obstructive pulmonary disease) Right upper quadrant abdominal pain Abdominal ultrasound 10/02/2024 unremarkable except for fatty liver. Gallbladder surgically absent. Dysuria Candidiasis of female genitalia BMI 31.0-31.9,adult Colon cancer screening (01/29/19) 01/29/2019 polyp of the cecum with recheck in 7-10 years. Acute non-recurrent maxillary sinusitis Encounter for osteoporosis screening in asymptomatic postmenopausal patient DEXA scan on 04/28/2020 reveals T-score of 2.5 at the spine and -0.9 at the hips. BMI 32.0-32.9,adult Encounter for hepatitis C screening test for low risk patient BMI 33.0-33.9,adult At moderate risk for fall (07/27/22) tripped on a toy, right rib contusion 07/27/2022. Rib pain on right side (07/27/22) right anterior lateral lower ribs after fall on 07/27/2022. Chest x-ray with right rib series revealed no active lung disease and no evidence of rib fracture 07/30/2022. Diffuse degenerative changes of the thoracic spine. Acute bronchitis Obesity (BMI 30-39.9) Rash due to allergy Colitis Hepatic steatosis Elevated LFTs AST 16, ALT 21 on 12/15/2021. AST 15, ALT 17 on 07/26/2022. Obstructive sleep apnea Moderate sleep apnea on sleep study done in fall 2019. She does not use her CPAP. Arthritis COVID-19 (02/19/20) Seasonal allergies Upper respiratory infection with cough and congestion Takotsubo cardiomyopathy Echocardiogram 03/29/2021 with ejection fraction 60% and no valvular abnormalities. Chronic anxiety Dyslipidemia Diabetes mellitus Patient denies. Fasting glucose 99 on 07/26/2022. Surgical History Surgical History History of dilation and curettage History of carpal tunnel release of both wrists History of fundoplication History of ear surgery History of hysterectomy for benign disease History of tonsillectomy and adenoidectomy History of appendectomy History of cholecystectomy Family History Family History Grandparent Diabetes mellitus, Onset Age: 88 Acute myocardial infarction Mother Family history of elevated blood lipids Family history of cardiovascular disease Family history of cardiac disorder Family history of malignant neoplasm Father Family history of elevated blood lipids, Onset Age: 78 Family history of cardiovascular disease, Onset Age: 78 Family history of malignant neoplasm Sibling Family history of cardiovascular disease Family history of cardiac disorder Family history of malignant neoplasm Family history of chronic obstructive pulmonary disease Social History Social History Social History: Surrogate decision maker: Garret Fish, . Code status: Full code. Caffeine-coffee Smoking packs per day: 2.5 Smoking cigarettes per day: 50.0 Years smoked: 25 Smoking pack-years: 62.50 Smoking status: Former smoker Tobacco type: cigarettes Second hand tobacco smoke exposure: No Smoking end date: 02/11/85 Alcohol intake: former Alcohol use details: no alcohol use for over 15 years Substance use: never Substance use type: does not use Lack of Transportation: No Lack of Food: Never True Current Housing: I Have Housing Concerned About Future Housing: No Difficulty Paying Gas/Electric Bills: No Difficulty Paying for Meds: No Currently Unemployed: No Education: High School Diploma/GED Difficulty w/ Childcare or Family Care: No Living arrangements: with family Additional living arrangements comments: The patient lives in [place] with her . 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 Gender identity (if verbalized by the patient): Female Spiritual care concerns: No Medications Home Medications ?Medication ?Instructions ?Recorded ?Confirmed ?Type aspirin 81 mg tablet,delayed 81 mg PO HS 04/02/1906/11 History release cholecalciferol (vitamin D3) 125 5,000 unit PO DAILY 0 06/17/19 06/29/24 History mcg (5,000 unit) tablet (Vitamin D3) escitalopram oxalate 20 mg tablet 20 mg PO DAILY #90 t abs 04/20/21 06/29/24 Rx (Lexapro) buspirone 10 mg tablet 10 mg PO BID #180 tabs 07/0306/29/24 Rx syringe with needle, safety 3 mL #12 ea 08/29/2106/29 Rx 23 gauge x 1 (Monoject Safety Syringes) meclizine 25 mg tablet 25 mg PO TID PRN dizziness # 30 tabs 03/27/22 06/29/24 Rx rosuvastatin 20 mg tablet (Crestor) 20 mg PO DAILY 05/0306/29/24 History lamotrigine 150 mg tablet 150 mg PO BID 08/29/2306/29 History albuterol sulfate 90 mcg/actuation 2 inh inhalation QI D PRN shortness 09/30/23 06/29/24 Rx aerosol inhaler of breath or wheezing #8.5 g shelley metoprolol succinate 25 mg 12.5 mg (1/2 x 25 mg) PO HS #90 10/07/23 07/10/24 Rx tablet,extended release 24 hr tabs syringe with needle, safety 3 mL #12 ea 02/03/2406/29 Rx 23 gauge x 1 (BD Integra Syringe) lansoprazole 30 mg capsule,delayed 30 mg PO BID #180 c aps 03/25/24 06/29/24 Rx release (Prevacid) telmisartan 20 mg tablet 20 mg PO DAILY #90 tabs 03/1406/29/24 Rx cyanocobalamin (vitamin B-12) 1,000 mcg IM .Q2W #10 mL 07/15/24 Rx 1,000 mcg/mL injection solution lorazepam 1 mg tablet 1 mg PO BID PRN Anxiety #180 tabs 09/25/24 Rx budesonide-formoterol HFA 80 1 inh inhalation BID PRN 10/27/24 History mcg-4.5 mcg/actuation aerosol inhaler (Symbicort) lactobacillus combination no.9 4 4,000 mmu cells PO DA EMANUEL 10/27/24 History billion cell capsule (Adult 50 Plus Probiotic) Sleep Procedure A full night split study using the [employer] SleepHeiaHe[employer] multi-channel system recorde d the standard physiologic parameters including EEG, EOG, submentalis EMG, anterior tibialis EMG, EKG, body position, nasal and oral airflow using nasal pressure sensor and thermistor.? Respiratory parameters of chest and abdominal movements were recorded with Respiratory Inductance Plethysmography belts. Oxygen saturation was recorded by pulse oximetry. Video monitoring was also performed. Sleep stages, periodic limb movements, and EEG arousals were scored in 30 second epochs according to the criteria of the AASM Scoring Manual. The Apnea-Hypopnea Index was calculated using [facility] guidelines for definition of hypopnea with 4% O2 desaturations while scoring respiratory events. Sleep Architecture During the diagnostic portion of the study, the total recording time was 162.9 minutes. The total sleep time was 117.5 minutes. Sleep latency was 21.4 minutes.? REM sleep was not achieved during this portion of the study. Sleep Efficiency was 72.1%. The patient had 5 awakenings for an awakening index of 2.6. Wake after sleep onset time was 24.0 minutes. The patient spent 27.5 minutes, 23.4% of total sleep time in Stage N1. The patient spent 90.0 minutes, 76.6% in Stage N2. The patient spent 0.0 minutes, 0.0% in Stage N3. The patient spent 0.0 minutes, 0.0% in Stage REM sleep. At 12:56:30 AM the patient was placed on PAP treatment and was titrated at pressures ranging from 5 cm H20 up to 10 cm H20. During the treatment portion of the study, the total recording time was 306.6 minutes.? The total sleep time was 277.0 minutes. Sleep latency was 3.0 minutes. REM latency was 166.0 minutes. Sleep Efficiency was 90.4%. Wake after Sleep Onset time was 27.0 minutes. The patient spent 101.5 minutes, 36.6% of total sleep time in Stage N1. The patient spent 151.5 minutes, 54.7% in Stage N2. The patient spent 0.0 minutes, 0.0% in Stage N3. The patient spent 24.0 minutes, 8.7% in Stage REM. Respiratory Analysis During the diagnostic portion of the study, the patient had 12 hypopneas for an overall Apnea Hypopnea Index of 6.1 events per hour. The REM Apnea Hypopnea Index was 0. The NREM Apnea Hypopnea Index was 6.1. The patient had a Central Apnea Hypopnea Index of 0. There was no evidence of Jama-Kwan Respirations. During the treatment portion of the study, the patient had 7 hypopneas for an overall Apnea Hypopnea Index of 1.5 events per hour. The REM Apnea Hypopnea Index was 0. The NREM Apnea Hypopnea Index was 1.7. The patient had a Central Apnea Hypopnea Index of 0. There was no evidence of Jama-Kwan Respirations. The patient was started on CPAP 5 cm H2O and titrated to CPAP 10 cm H2O due to hypopneas. The patient was able to fall asleep starting on CPAP 5 cm H2O. The patient was able to achieve REM sleep starting on CPAP 7 cm H2O. The patient was able to achieve a residual AHI less than 5 with both NREM and REm sleep in the supine position on 7 cm H2O. On CPAP 7 cm H2O, the patient spent 120.5 minutes in NREM and 24 minutes in REM with 3 hypopneas, resulting in an AHI of 1.2. On CPAP 9 cm H2O, the patient spent 42.5 minutes in NREM with 1 hypopnea, resulting in an AHI of 1.4. On CPAP 10 cm H2O, the patient spent 24 minutes in NREM with 1 hypopnea, resulting in an AHI of 2.5. Arousals During the diagnostic portion of the study, there were a total of 68 arousals for an arousal index of 34.7.? There were 4 respiratory arousals for an index of 2.0. There were 40 periodic limb movement arousals for an index of 20.4.? There were 3 isolated limb movement arousals for an index of 1.5. There were 23 spontaneous arousals for an index of 11.7. During the treatment portion of the study, there were a total of 158 arousals for an index of 34.2.? There were 5 respiratory arousals for an index of 1.1. There were 0 periodic limb movement arousals for an index of 0.? There were 3 isolated limb movement arousals for an index of 0.6. There were 151 spontaneous arousals for an index of 32.7. Periodic Limb Movements During the diagnostic portion of the study, the patient had 15 isolated limb movements with an index of 7.7. The patient had 258 periodic limb movements with an index of 131.7, which is elevated (normal < 15). The patient had a total of 273 limb movements with a total limb movement index of 139.4. During the treatment portion of the study, the patient had 10 isolated limb movements with an index of 2.2. The patient had 0 periodic limb movements with an index of 0. The patient had a total of 10 limb movements with a total limb movement index of 2.2. Oximetry Data During the diagnostic portion of the study, the patient had an average oxygen saturation of 91.6% in wake with a minimum oxygen saturation of 86% and a maximum oxygen saturation of 97%. The patient had an average oxygen saturation of 90.3% in sleep with a minimum oxygen saturation of 84.0% and a maximum oxygen saturation of 97.0%. The patient had 25 oxygen desaturations resulting in an Oxygen Desaturation Index of 12.8. The patient spent 7.6 minutes, 4.7% of total sleep time with an oxygen saturation less than 88%. During the treatment portion of the study, the patient had an average oxygen saturation of 92.2% in wake with a minimum oxygen saturation of 88.0% and a maximum oxygen saturation of 97.0%. The patient had an average oxygen saturation of 92.2% in sleep with a minimum oxygen saturation of 88.0% and a maximum oxygen saturation of 97.0%. The patient had 24 oxygen desaturations resulting in an Oxygen Desaturation Index of 5.2. The patient spent 0.2 minutes, 0.1% of total sleep time with an oxygen saturation less than 88%. Snoring Profile Mild to moderate snoring was present in the baseline portion of the study. The snoring resolved once the patient was titrated to CPAP 9 cm H2O. Cardiac Profile The EKG lead showed normal sinus rhythm. No arrhythmias or premature beats were seen. During the diagnostic portion of the study, the average pulse rate was 63.7 bpm.? The minimum pulse rate was 59.0 bpm. The maximum pulse rate was 76.0 bpm. During the treatment portion of the study, the average pulse rate was 62.5 bpm.? The minimum pulse rate was 56.0 bpm. The maximum pulse rate was 77.0 bpm. EEG Profile No signs of seizure activity seen. Assessment and Plan Assessment and Plan (1) Obstructive sleep apnea: Code(s): G47.33 - Obstructive sleep apnea (adult) (pediatric) Status: Acute Assessment and Plan: In the baseline portion of the study, the patient had an overall AHI of 6.1 with desaturation down to 84%. This is consistent with mild sleep apnea. Due to the patient's COPD, the patient qualifies for treatment. The patient was started on CPAP 5 cm H2O and titrated to CPAP 10 cm H2O due to hypopneas. I recommend that the patient be prescribed CPAP 9 cm H2O, size medium Resmed AirTouch F20 full face mask, CPAP filters/tubing and heated humidity. This should be used with all episodes of sleep.? Compliance should be reviewed within 31-90 days of starting therapy for usage greater than 4 hours per night greater than 70% of the nights. The patient should be asked about symptoms such as?excessive daytime sleepiness, quality of sleep, decreased nocturia, increased?mental functioning such as memory, mood, and concentration. Data The data obtained during this sleep study is adequate for interpretation. Certification This sleep study has been reviewed by a board certified sleep medicine physician.
== END 2024-10-20 06:49 | disposition home or self-care (01) ==
LOC: ANHCSM 08:04
PROVIDERS: PCP Family Medicine; Visit Provider Family Medicine
DX: G47.33 Obstructive sleep apnea (adult) (pediatric) (principal)
CPT/HCPCS: 95811

== ENCOUNTER → 2024-11-09 14:46 | Outpatient (REF) | payer MEDICARE, SELFPAY ==
--- OUTSIDE RECORDS SUMMARY | 2002-01-21 03:45 | XMS_ITS | Continuity of Care Document ---
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 [address] [facility], [place], [address], [place]. tel: [phone] Family History Family Member Type Diagnosis Age At Onset No Information Payers Payer name Insurance type Covered republican ID Authoriza tion(s) [place] [id number] Social History Type Description Quantity Date Captured Comments Sex Female Smoking Status No Information Chief Complaint And Reason For Visit No Information Reason For Referral Reason For Referral No Information History Of Present Illness Encounter Date Complaint History Of Prese nt Illness No Information Functional Status Date Functional Assessmen t No Information Instructions Date Instruction Additional Infor mation No Information Assessments Type Assessment Date No Information Patient Care Teams Name Effective Dates (start - stop) Status Members No Information
--- NOTE | 2024-11-09 14:46 | S_PTH ---
PATIENT: Dina Fish LOC: [facility] U#:[id number] AGE/SX: 74/F ROOM: RE11/09/[address]: Jeannette Chau PA-C : 1950 BED: DIS: SPEC #: [id number] RECD: 11/10/24 07:20 STATUS: MARICRUZ RE #: [id number] MARCIN: 11/09/24 14:[address]: Jeannette Chau DEPT: [facility] Surgical RECD BY: Jossue Brown ENTERED: 11/10/24 07:20 SP TYPE: Surgical OTHR DR: Tony Fall MD Tissues: A - Mass Procedures: Hematoxylin and Eosin Stain Gross and Microscopic Level 3
--- OUTSIDE RECORDS SUMMARY | 2024-11-09 15:37 | XMS_ITS | Clinical Summary ---
Author Organization [facility] Address [facility] [place] [address] Care Team Providers Care Hotel Custodian Name Role Phone Tony Fall MD Primary Care Provider [phone] Allergies Active Allergy Reactions Criticality Noted Date Comments Codeine GI Upset 03/19/2019 Makes me feel funny Meperidine GI Upset 03/19/2019 Makes me 'feel funny' Medications lansoprazole 30 MG capsule Take 30 mg by mouth 2 (two) times a day. Active busPIRone 15 MG tablet Take 15 mg by mouth 2 (two) times daily. Active lamotrigine 100 MG tablet Take 100 mg by mouth 2 (two) times daily. Active duloxetine 60 MG capsule Take 60 mg by mouth 2 (two) times daily. Active aspirin 81 MG chewable tablet Chew 81 mg by mouth nightly at bedtime. Active cyanocobalamin 1000 MCG/ML injection Inject into the muscle Bimonthly. 03/14/2019 Active lorazepam 1 MG tablet Take 1 mg by mouth 2 (two) times a day. Active losartan 50 MG tablet Take 1 tablet (50 mg total) by mouth daily. 30 tablet 2 03/20/2019 Active nitroglycerin 0.[address] 1 tablet (0.4 mg total) under the tongue every 5 (five) minutes as needed for Chest Pain. 60 tablet 03/20/2019 Active metoprolol succinate ER 12.5 mg TABLET SR 24 HR 24 hr tablet Take 1 split tab (12.5 mg total) by mouth daily. 60 tablet 2 03/21/2019 Active atorvastatin 80 MG tablet Take 1 tablet (80 mg total) by mouth nightly at bedtime. 30 tablet 1 03/20/2019 Active Active Problems Problem Noted Date Diagnosed Date STEMI (ST elevation myocardi al infarction) ([facility]) 03/19/2019 Family History Medical History Relation Comments Alcohol Abuse Brother Arthritis Brother Depression Brother Heart Disease Brother Hyperlipidemia Brother Hypertension Brother Alcohol Abuse Father Arthritis Father Heart Disease Father Hyperlipidemia Father Hypertension Father Stroke Father Heart Disease Maternal Grandfather Hyperlipidemia Maternal Grandfather Heart Disease Maternal Grandmother Hyperlipidemia Maternal Grandmother Arthritis Mother Cancer Mother Depression Mother Heart Disease Mother Hyperlipidemia Mother Hypertension Mother Kidney Disease Mother Stroke Mother Arthritis Sister Depression Sister Diabetes Sister Heart Disease Sister Hyperlipidemia Sister Hypertension Sister Kidney Disease Sister Relation Status Comments Brother Father Maternal Grandfather Maternal Grandmother Mother Sister Social History Tobacco Use Types Packs/Day Years Used Date Smoking Tobacco: Former Cigarettes 2 15 0 03/19/1980 - 03/19/1995 Smokeless Tobacco: Never Tobacco Cessation:Counseling Given: No Alcohol Use Standard Drinks/Week Comments Not Currently [...] and Family Once a week 03/19/2019 Attends [employer] Services 1 to 4 times per year 03/19/2019 Active Member of Clubs or Organizations No 03/19/2019 Attends Club or Organization Meetings Never 03/19/2019 Marital Status 03/19/2019 Overall Financial Resource Strain (CARDIA) Answe r Date Recorded Difficulty of Paying Living Expenses Not hard at all 03/19/2019 [facility] [place] [facility] Occup[facility] ional Health - Occupational Stress [...] on file Legal Sex Female 1:48 PM MANAGER AUTO Gender Identity Not on file Sexual Orientation Not on file Last Filed Vital Signs Vital Sign Reading Time Taken Comments Blood Pressure 119/66 03/20/2019 11:00 AM MANAGER AUTO Pulse 62 03/20/2019 11:00 AM MANAGER AUTO Temperature 36.9 C (98.4 F) 03/20/2019 11:00 AM MANAGER AUTO Respiratory Rate 20 03/20/2019 11:0 0 AM MANAGER AUTO Oxygen Saturation 95% 03/20/2019 11: 00 AM MANAGER AUTO Inhaled Oxygen Concentration - - Weight 97.9 kg (215 lb 12.8 oz) 03/20/2019 6:05 AM MANAGER AUTO Height 172.7 cm (5' 8) 03/19/2019 5:02 PM MANAGER AUTO Body Mass Index 32.81 03/19/2019 5:02 PM MANAGER AUTO Plan of Treatment Health Maintenance Due Date Last Done Comments ASCVD Statin 1950 Colorectal Cancer Screening Colonoscopy (10 Years) 1950 Hepatitis C 1968 DTaP, Tdap and Td Vaccines ( 1 - Tdap) 1969 Pneumococcal Vaccine: 50+ Ye ars (1 of 2 - PCV) 1969 Mammogram Screening 1990 Zoster Vaccines (1 of 2) 2000 RSV Immunization or 60+ Years (1 - Risk 60-74 years 1-dose series) 2010 Annual Medicare Wellness Visit 12/07/2015 Dexa Scan (General) 12/07/2015 ASCVD LDL 03/19/2020 03/19/2019 COVID-19 Vaccine (1 - 2023-2 5 season) 2024 Meningococcal B Vaccine Aged Out No l onger eligible based on patient's age to complete this topic Meningococcal Vaccine Aged Out No radhames mat eligible based on patient's age to complete this topic RSV Immunizations Under 20 Months Aged Out No longer eligible based on patient's age to complete this topic Procedures Procedure Name Priority Date/Time Associated Diagnosis Comments LIPID PANEL Routine 03/19/2019 10:37 AM MANAGER AUTO STEMI (ST elevation myocardial infarction) from Last 3 Months or Most Recently Relevant to Health Maintenance Results * (ABNORMAL) LIPID PANEL (03/19/2019 10:37 AM MANAGER AUTO) CHOLESTEROL 196 <200 MG/DL 03/19/2019 11:30 AM [facility] TRIGLYCERIDES 182(H) <150 MG/DL 03/19/2019 11:30 AM [facility] HDL 48 >40.0 MG/DL 03/19/2019 11:30 AM [facility] LDL (CALCULATED) 112(H) <100 MG/DL 03/19/2019 11:30 AM [facility] NON HDL CHOLESTEROL 148(H) <130 MG/DL 03/19/2019 11:30 AM [facility] CHOL/HDL RATIO 4.1 0.0 - 4.5 03/19/2019 11:30 AM [facility] VLDL CALCULATION 36 5 - 55 MG/DL 03/19/2019 11:30 AM [facility] LIPID INTERPRETATION 03/19/2019 11:30 AM [facility] Comment: [facility] CONCENSUS REPORT RECOMMENDATIONS: ADULT CHILD LOW RISK: CHOLESTEROL <200 <170 TRIGLYCERIDE <150 --- HDL >=60 --- LDL <100 <110 BORDERLINE: CHOLESTEROL 200-239 170-199 TRIGLYCERIDE 150-199 --- HDL 40-59 --- LDL 100-159 110-129 HIGH RISK: CHOLESTEROL >=240 >=200 TRIGLYCERIDE >=200 --- HDL <40 --- LDL >=160 >=130 03/19/2019 10:3 7 AM MANAGER AUTO Oralia Jasso MD LABORATORY Final Result [facility] [address] [place] [address], [place] [phone] from Last 3 Months or Most Recently Relevant to Health Maintenance Insurance MEDICARE MEDICARE Advance Directives * Full Code (Latest Code Status on File) Date Activated Date Inactivated Comments 03/19/2019 3:40 PM 03/20/2019 4:20 PM * Full Code Date Activated Date Inactivated Comments 03/19/2019 11:45 AM 03/19/2019 2:32 PM Care Teams Hotel Custodian Relationship Specialty Start Date End Date Tony Fall MD [address] [place] [address] [address] [place] [address] PCP - General FAMILY PRACTICE 03/19/19
--- OUTSIDE RECORDS SUMMARY | 2024-11-09 15:37 | XMS_ITS | Encounter Summary ---
Author Organization [facility] Address [address] [place] [id number] Care Team Providers Care Hand Pleater Name Role Phone Tony Fall MD Primary Care Provider [phone] Encounter Details Date Type Department Care Team (Late st Contact Info) Description 03/21/2019 Hospital Follow-up Call [facility] Telemetry [address] [place], [place] [id number] Marguerite Sorto, Cost Control Supervisor Social History Tobacco Use Types Packs/Day Years [...] and Family Once a week 03/19/2019 Attends [employer] Services 1 to 4 times per year 03/19/2019 Active Member of Clubs or Organizations No 03/19/2019 Attends Club or Organization Meetings Never 03/19/2019 Marital Status 03/19/2019 Overall Financial Resource Strain (CARDIA) Answe r Date Recorded Difficulty of Paying Living Expenses Not hard at all 03/19/2019 [facility] [place] [facility] Occupat ional Health - Occupational Stress [...] on file Legal Sex Female 1:48 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 Answer Date of Assessment Author Status No 03/19/2019 11:58 AM FREEZER LABORATORY TECHNICIAN Acti ve * Do you have serious [...] on filedocumented in this encounter Care Teams Hand Pleater Relationship Specialty Start Date End Date Tony Fall MD [address] [place] [address] [address] [place] [address] PCP - General FAMILY PRACTICE 03/19/19 documented as of this encounter
== END ==
LOC: ANHLAB 14:46
PROVIDERS: PCP Family Medicine; Visit Provider Physician Assistant Surgical
DX: D23.22 Other benign neoplasm of skin of left ear and external auricular canal (principal); H93.8X2 Other specified disorders of left ear
CPT/HCPCS: 88304

== ENCOUNTER → 2024-12-22 10:27 | Outpatient (REF) | payer MEDICARE, SELFPAY ==
--- NOTE | 2024-12-22 10:27 | S_PTH ---
PATIENT: Dina Fish LOC: [facility] U#:[id number] AGE/SX: 74/F ROOM: RE12/22/[address]: Jeannette Chau PA-C : 1950 BED: DIS: SPEC #: [id number] RECD: 12/22/24 12:04 STATUS: MARICRUZ REAlvino #: [id number] MARCIN: 12/22/24 10:[address]: Jeannette Chau DEPT: [facility] Surgical RECD BY: Jossue Brown ENTERED: 12/22/24 12:05 SP TYPE: Surgical OTHR DR: Tony Fall MD Tissues: A - Cyst Procedures: Hematoxylin and Eosin Stain Mercedes/Louise A CD68 Gross and Microscopic Level 4 SOX 10
--- OUTSIDE RECORDS SUMMARY | 2024-12-22 11:01 | XMS_ITS | Clinical Summary ---
Author Organization [facility] Address Formerly [facility], [facility] [place] [address] Care Team Providers Care It Admin Name Role Phone Tony Fall MD Primary Care Provider [phone] Allergies Active Allergy Reactions Criticality Noted Date [...] Noted Date Diagnosed Date STEMI (ST elevation myocardial infarction) 03/19 Family History Medical History Relation Comments Alcohol [...] No 03/19/2019 Social Connection and Isolation Panel Answer Date Recorded Frequency of Communication w ith Friends and Family Once a week 03/19/2019 Frequency of Social Gatherin gs with Friends and Family Once a week 03/19/2019 Attends Anab[employer]ist Services 1 to 4 times per year 03/19/2019 Active Member of Clubs or Organizations No 03/19/2019 Attends Club or Organization Meetings Never 03/19/2019 Marital Status 03/19/2019 Overall Financial Resource Strain (CARDIA) Answe r Date Recorded Difficulty of Paying Living Expenses Not hard at all 03/19/2019 [facility] [place] of Occupat ional Health - Occupational Stress [...] on file Legal Sex Female 1:48 PM 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 Gender Identity Not on file Sexual Orientation Not on file Last Filed Vital Signs Vital Sign Reading Time Taken Comments Blood Pressure 119/66 03/20/2019 11:00 AM MARKET PRESIDENT Pulse 62 03/20/2019 11:00 AM MARKET PRESIDENT Temperature 36.9 C (98.4 F) 03/20/2019 11:00 AM MARKET PRESIDENT Respiratory Rate 20 03/20/2019 11:0 0 AM MARKET PRESIDENT Oxygen Saturation 95% 03/20/2019 11: 00 AM MARKET PRESIDENT Inhaled Oxygen Concentration - - Weight 97.9 kg (215 lb 12.8 oz) 03/20/2019 6:05 AM MARKET PRESIDENT Height 172.7 cm (5' 8) 03/19/2019 5:02 PM MARKET PRESIDENT Body Mass Index 32.81 03/19/2019 5:02 PM MARKET PRESIDENT Plan of Treatment Health Maintenance Due Date [...] LDL 03/19/2020 03/19/2019 COVID-19 Vaccine (1 - 2024-2 6 season) 2024 Influenza Adult (#1) 2024 Hepatitis A Vaccines Aged Out No long er eligible based on patient's age to complete this topic Meningococcal B Vaccine Aged Out No l [...] Comments LIPID PANEL Routine 03/19/2019 10:37 AM MARKET PRESIDENT STEMI (ST elevation myocardial infarction) from Last 3 Months or Most Recently Relevant to Health Maintenance Results * (ABNORMAL) LIPID PANEL (03/19/2019 10:37 AM MARKET PRESIDENT) CHOLESTEROL 196 <200 MG/DL 03/19/2019 11:30 AM [facility] TRIGLYCERIDES 182(H) <150 MG/DL 03/19/2019 11:30 AM [facility] HDL 48 >40.0 MG/DL 03/19/2019 11:30 AM [facility] LDL (CALCULATED) 112(H) <100 MG/DL 03/19/2019 11:30 AM [facility] NON HDL CHOLESTEROL 148(H) <130 MG/DL 03/19/2019 11:30 AM [facility] CHOL/HDL RATIO 4.1 0.0 - 4.5 03/19/2019 11:30 AM [facility] VLDL CALCULATION 36 5 - 55 MG/DL 03/19/2019 11:30 AM [facility] LIPID INTERPRETATION 03/19/2019 11:30 AM [facility] Comment: [facility] CONCENSUS REPORT RECOMMENDATIONS: ADULT CHILD LOW RISK: CHOLESTEROL <200 <170 TRIGLYCERIDE <150 --- HDL >=60 --- LDL <100 <110 BORDERLINE: CHOLESTEROL 200-239 170-199 TRIGLYCERIDE 150-199 --- HDL 40-59 --- LDL 100-159 110-129 HIGH RISK: CHOLESTEROL >=240 >=200 TRIGLYCERIDE >=200 --- HDL <40 --- LDL >=160 >=130 03/19/2019 10:3 7 AM MARKET PRESIDENT Oralia Jasso MD LABORATORY Final Result [facility] [address] [place] [address], [place] [phone] from Last 3 Months or Most Recently Relevant to Health Maintenance Insurance MEDICARE MEDICARE Advance Directives * Full Code (Latest Code Status on File) Date Activated Date Inactivated Comments 03/19/2019 3:40 PM 03/20/2019 4:20 PM * Full Code Date Activated Date Inactivated Comments 03/19/2019 11:45 AM 03/19/2019 2:32 PM Care Teams It Admin Relationship Specialty Start Date End Date Tony Fall MD [address] [place] [address] [address] [place] [address] PCP - General FAMILY PRACTICE 03/19/19
--- OUTSIDE RECORDS SUMMARY | 2024-12-22 11:01 | XMS_ITS | Encounter Summary ---
Author Organization [facility] Address [address] [place] [id number] Care Team Providers Care Case Consultant Name Role Phone Tony Fall MD Primary Care Provider [phone] Encounter Details Date Type Department Care Team (Late st Contact Info) Description 03/21/2019 Hospital Follow-up Call [facility] Telemetry [address] [place], [place] [id number] Marguerite Sorto, Straw Hat Brusher Social History Tobacco Use Types Packs/Day Years [...] and Family Once a week 03/19/2019 Attends [employer]ism Services 1 to 4 times per year 03/19/2019 Active Member of Clubs or Organizations No 03/19/2019 Attends Club or Organization Meetings Never 03/19/2019 Marital Status 03/19/2019 Overall Financial Resource Strain (CARDIA) Answe r Date Recorded Difficulty of Paying Living Expenses Not hard at all 03/19/2019 [facility] [place] of Occupat ional Health - Occupational Stress [...] on file Legal Sex Female 1:48 PM VALIDATION INTERN Gender Identity Not on file Sexual Orientation Not on file documented as of this encounter Functional Status * RETIRED Are you deaf or do you have serious difficulty hearing Answer Date of Assessment Author Status No 03/19/2019 11:58 AM VALIDATION INTERN Acti ve * RETIRED Are you blind or do you have serious difficulty seeing, even when wearing glasses? Answer Date of Assessment Author Status No 03/19/2019 11:58 AM VALIDATION INTERN Acti ve * Do you have serious difficulty walking or climbing stairs? Answer Date of Assessment Author Status No 03/19/2019 11:58 AM Kiesha Quinatnilla RN Active * Do you have difficulty [...] Author Status No 03/19/2019 11:58 AM Kiesha Qiuntanilla RN Active documented in this encounter Plan of Treatment Not on file documented as of this encounter Visit Diagnoses Not on filedocumented in this encounter Care Teams Case Consultant Relationship Specialty Start Date End Date Tony Fall MD [address] [place] [address] [address] [place] [address] PCP - General FAMILY PRACTICE 03/19/19 documented as of this encounter
--- OUTSIDE RECORDS SUMMARY | 2024-12-22 11:01 | XMS_ITS | Data Portability ---
Author Organization [place] [employer], Main Office Address [address] [place] [address] Assessment Encounter Date Assessment Date Assessment LastModified [...] of 37 minutes. Not available 06/08/2024 12:18:17 10/05/2024 10/05/2024 Time spent with patient included: preparing to see patient by reviewing tests, obtaining and reviewing history, medical examination and evaluation, counseling and educating the patient, ordering medications and tests, documenting clinical information in EHR, independently interpreting results and communicating results to the patient for a total of 48 minutes. Not available 10/05/2024 12:25:10 Plan of Treatment Reminders Order Date Submit Date Provider Last Modified By Organization Details Last Modified Time Details Appointments Any 30 2024 10:30A M Nery Daly NP Not available Not available Not available Lab culture, sputum [address] [facility] ([facility]), [address] [place], [address], 10/22/2024 15:24:05 alpha-1-a ntitrypsi n (aat) phenotype , serum [address] [facility] (Lab), [address] [place], [address], 05/30/2024 09:17:55 BNP (B-type natriuret ic peptide), serum or plasma [address] [facility] (Lab), [address] [place], [address], 05/19/2024 15:05:46 ige, total, serum [id number] [facility] (Lab), [address] [place], [address], 06/04/2024 09:55:18 tb (M tuberculo sis), ifn-gamma bry, blood [id number] [facility] (Lab), [address] [place], [address], 06/04/2024 09:55:19 [address] subcl[address] s 1+2+3+4, serum [id number] [facility] (Lab), [address] [place], [address], 06/04/2024 09:55:19 respirato ry allergen panel, [facility] A, serum [email or web address] [facility] (Lab), [address] [place], [address], 06/04/2024 09:55:19 respirato ry allergen panel - [facility] b [id number] [facility] (Lab), [address] [place], [address], 06/04/2024 09:55:19 eosinophi ls, quant, blood [id number] [facility] (Lab), [address] [place], [address], 06/04/2024 09:55:19 Referral None recorded. Procedures None recorded. Surgeries None recorded. Imaging XR, sinuses, paranasal , less than 3 view 2024 025 [facility] ([facility]), [address] [place], [address], 10/05/2024 13:24:33 LDCT, chest, for lung cancer screening 2024 025 [email or web address] [facility] ([facility]), [address] [place], [address], 06/10/2024 14:07:12 XR, chest, 2 view 2024 025 JAMEEL Not available 05/19/2024 15:37:03 Medication Orders nystatin 100,000 unit/mL oral suspensio n 2024 025 [facility] ([facility]), [address], [place], [address], 10/05/2024 12:18:43 Dulera 100 mcg-5 mcg/actua tion HFA aerosol inhaler 2024 025 [id number], [address], [place], [address], 06/23/2024 17:55:58 Patient TargetsNo targets recorded. Patient Instructions Encounter Date Encounter Id Patient Instructions Last Modified By Organization Details Last Modified Time 05/19/2024 [id number] complete PFT w/ post bronchodilator spirometry* - [...] 2 view No observ ation record ed. [facility] [address] [place], [address], 05/21/2024 12:18:26 06/05/19 25 06/03/2024 compl ete PFT w/ post bronc hodil [facility] * No observ ation record ed. [address] ([facility]) [address] [place], [address], 06/08/2024 10:11:32 06/05/19 25 06/03/2024 compl ete PFT w/ post bron hodil at[facility] * No observ ation record ed. [address] ([facility]) [address] [place], [address], 06/08/2024 10:11:33 06/05/19 25 06/03/2024 compl ete PFT w/ post bron hodil at[facility] * No observ ation record ed. [address] ([facility]) [address] [place], [address], 06/08/2024 10:11:34 07/02/19 25 07/01/2024 CT, chest , w/o contr ast No observ ation record ed. [address] [place], [address], 07/10/2024 13:00:28 10/06/1910/05/2024 XR, sinus es, paran gerri, less than 3 view No observ ation record ed. [facility] [address] [place], [address], 10/14/2024 15:20:06 Result Notes None recorded. Problems Name Problem SNOMED Code Status Onset Date Resolution Date Notes Provider Name and Address Organization Details Recorded Time Current tear of medial cartilage AND/OR meniscus of knee Active Not Available [facility] 12:52[facility]31 Current tear of lateral cartilage AND/OR meniscus of knee Active Not Available [facility] 3 12:52:31 Obstructive sleep apnea syndrome 65070588 Active Not Available [facility] 3 12:52:31 Gastro-esopha geal reflux disease with esophagitis 904332963 Active 2024 Nery Daly NP [address], [place], [address] , [employer] 5 10:54:33 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 369896909 Active 2024 Nery Daly NP [address], [place], [address] , [employer] 5 12:20:26 Mild chronic obstructive pulmonary disease 478095605 Active 2024 Bert Mann MD [address], [address], [place], [address] , [employer] [facility] [employer] 5 16:33:45 Chronic obstructive pulmonary disease 58583313 Active 2024 Nery Daly NP [address], [address], [place], [address] , [employer] 5 16:25:57 Congestion of nasal sinus 89944006 Active 2024 Nery Daly NP [address], [place], [address] , [employer] 5 12:14:27 Candidiasis of mouth 64142695 Active 2024 Nery Daly NP [address], [place], [address] , [facility] [employer] [facility] 5 12:16:29 Facial sinus finding 174628928 Active 2024 Nery Daly NP [address], [place], [address] , [facility] [employer] [facility] 5 09:04:00 Problem Notes None recorded. Medical Equipment None Reported. Allergies Allergen ID Allergen Name Allergen Category Reaction Reaction Severity Criticality Documentation Date Start Date Code Code System Note Provider Name and Address Organization Details Recorded Time 88711 fentanyl medicatio n Not available Not available Not available 04/11/2022 4337 RxNorm Not Available [facility] 3 12:56:49 71117 Demerol medicatio n Not available Not available Not available 04/11/2022 37469 1 RxNorm Not Available [facility] 3 12:56:49 63036 codeine medicatio n Not available Not available Not available 04/11/2022 2670 RxNorm Not Available [facility] 3 12:56:49 81488 Cipro medicatio n Not available Not available Not available 10/05/202475389 3 RxNorm MURRAY Davis, [facility] [employer] [facility] 5 11:39:37 Medications Name Sig Start Date Stop Date Status Note LastModified by Organization Details LastModified Time losartan 50 mg tablet 05/19 completed Not Available Not Available Not Available amoxicillin 500 mg capsule 11/27 completed Not Available Not Available Not Available lamotrigine 150 mg tablet Take 1 tablet twice a day by oral route. active Not Available Not Available No t Available nystatin 100,000 unit/mL oral suspension Take 5 mL 4 times a day by oral route, for 10 days. 2024 active Not Available Not Available Not Avai lable prednisone 10 mg tablet 05/19 completed Not Available Not Available Not Available azithromyci n 250 mg tablet TAKE 2 TABLETS BY MOUTH TODAY, THEN TAKE 1 TABLET DAILY FOR 4 DAYS DIRECTED 10/05 completed Not Available Not Available Not Available fluconazole 150 mg tablet TAKE 1 TABLET BY MOUTH NOW, REPEAT IN 1 WEEK IF NEEDED FOR YEAST INFECTION active Not Available Not Available No t Available clarithromy andrea 500 mg tablet active Not Available Not Available Not Available meloxicam 15 mg tablet 11/19 completed Not Available Not Available Not Available phenazopyri dine 200 mg tablet TAKE 1 TABLET BY MOUTH EVERY 8 HOURS NEEDED 05/19 completed Not Available Not Available Not Available prednisone 20 mg tablet TAKE 1 TABLET BY MOUTH DAILY 10/05 completed Not Available Not Available Not Available [...] administe red by the provider 06/03 completed [facility]: 0003- 0494- 20 Not Available Not Available Not Available hydrocodone 7.5 mg-acetamin ophen 325 mg tablet active Not Available Not Available No t Available cyanocobala min (vit B-12) 1,000 mcg/mL injection solution INJECT 1 ML INTRAMUSC ULARLY EVERY 2 WEEKS active Not [...] tablet TAKE 1 TABLET BY MOUTH DAILY active Not Available Not Available No t Available gabapentin 100 mg capsule active Not [...] 1 CAPSULE BY MOUTH EVERY 12 HOURS X10 DAYS active Not Available Not Available No t Available losartan 100 mg tablet TAKE ONE [...] 1 CAPSULE BY MOUTH EVERY 12 HOURS WITH A MEAL/FOOD FOR 5 DAYS active Not Available Not Available No t [...] administe red by the provider 06/03 completed [facility]: 0409- 4276- 17 Not Available Not Available [...] completed Not Available Not Available Not Available [employer] Safety Syringe 3 mL 23 gauge x 1 USE WITH VITAMIN B12 INJECTION S EVERY 2 WEEKS active Not Available Not Available No t Available metoprolol succinate ER 25 mg capsule sprinkle, ext. release 24 hr Take 1 capsule every day by oral route. active Not Available Not Available No t Available [employer] Inhub 100 mcg-50 mcg/dose powder for inhalation Inhale 1 puff twice a day by inhalatio n route. 06/23 completed Not Available Not Available Not Available Fluzone High-Dose 2019- (PF) 180 mcg/0.5 mL intramuscul ar syringe IMMUN 05/19 completed Not Available Not Available Not Available Caplyta active Not Available Not Avail able Not Available Vitals Date Recorded Body weight Body mass index (BMI) Body height Body temperature Heart rate Oxygen saturation Oxygen saturation in Arterial blood by Pulse oximetry Systolic And Diastolic Provider Name and Address Organization Details Last Updated DateTime 5 355741. 69 g 34.1 kg/m2 172.72 cm 97.2 [degF] 65 /min 93 % 93 % 114/76 mm[Hg] Emmanuelle Ivan MA [facility] [address] [facility] 5 10:20:21 Date Recorded Body height Body mass index (BMI) Body weight Body temperature Heart rate Oxygen saturation Oxygen saturation in Arterial blood by Pulse oximetry Systolic And Diastolic Provider Name and Address Organization Details Last Updated DateTime 5 172.72 cm 34.2 kg/m2 884833. 28 g 98.4 [degF] 57 /min 97 % 97 % 120/70 mm[Hg] Emmanuelle Ivan MA [facility] [address] [facility] 5 11:50:16 Date Recorded Body height Body mass index (BMI) Body weight Body temperature Heart rate Oxygen saturation Oxygen saturation in Arterial blood by Pulse oximetry Systolic And Diastolic Provider Name and Address Organization Details Last Updated DateTime 5 172.72 cm 36 kg/m2 890741. 39 g 98.7 [degF] 76 /min 98 % 98 % 122/72 mm[Hg] Emmanuelle Ivan MA [facility] [employer] 5 11:44:22 Social History Question Answer Notes LastModified by Organizat ion Details LastModified Time Tobacco Smoking Status Former Smoker quit over 30 years ago Emmanuelle Ivan MA [facility] [address] [facility] 05/19/2024 10:17:18 What Is Your Level Of [...] Date Of Your Most Recent Tobacco Screening? 10/05/2024 Information not available 10/05/2024 Do You Have Any Pets? Yes Dog Information not available 05/19/2024 Do You Use Your Seat Belt Or Car Seat Routinely? Yes Information not available 06/08/2024 Do You Have Smoke And Carbon Monoxide Detectors In Your Home? Yes Information not available 05/19/2024 Are You Passively Exposed To Smoke? No Information no t available 06/08/2024 How Many Years Have You Smoked Tobacco? 15 [email or web address] Information not available 06/17/2024 Have You Recently [...] anxious, or unable to sleep at night)? [id number] Information not available 06/08/2024 Family History Nothing Reported. Medical History No medical history recorded. Gynecological HistoryNo gynecological history recorded. Obstetrics History GPAL:G 0 P 0 0 0 0 Past Encounters Encounter ID Performer Location Encounter Start Date Encounter Closed Date Diagnosis/Indication Diagnosis SNOMED-CT Code Diagnosis ICD10 Code Diagnosis IMO Codes Diagnosis Note [id number] Nery Daly NP [facility] [address] [address] 05/19/2024 09:58:48 05/20/2024 12:52:16 Dyspnea on exertion 83786529 R06.09 R05.3 Lab work todayCXR orderCAT-2 8Mmrc-1PFT for baselineAw are to use Albuterol inhaler as needed-ok to use when sobEncoura ge patient to remain activefoll ow-up once testing is complete-s ooner for any changes in breathing and increase use of inhaler Ex-smoker 8487668 Z87.89 1 she declines LDCT Gastro-eso phageal reflux disease with esophagitis 965497636 K21.00 will continue her medication -may need to consider seeing GI [id number] Nery Daly NP [address] [address] 06/08/2024 11:31:36 06/09/2024 10:20:46 Chronic obstructive pulmonary disease 89949144 J44.9 Start with Dulera and use discussed- [...] symptoms ER Former hea vy tobacco smoker 3376221023 [address]-will call if she needs something to help relax during the test Nonspecifi c tuberculin test reaction 217756900 R76.12 has been referred to infectious disease Gastro-eso phageal reflux disease with esophagitis 148407518 K21.00 will continue her medication - needs to see GI-do feel most of the cough is coming from GERD-notes food is starting to get stuck [id number] Bert Mann MD [facility] [place] [id number] [facility] [address] [place] [address] 10/05/2024 11:27:53 10/06/2024 15:19:07 Chronic obstructive pulmonary disease 83748112 J44.9 R05.3 828419921 Continue Symbicort and use discussed, compliance reinforced -continues with cough and dyspneaUse Albuterol inhaler as neededPFT notes mild COPDCAT-23 Reviewed labs-no eosinophil s, no severe allergies, Alpha 1 negative-+ quantifero n, CXR with LLL scarring otherwise unremarkab leEncourag e to maintain vaccines when dueF/u with PMD for any new labsF/u with me in 4 months-Sym bicort use (rinse mouth after use)-will call if needs Albuterol (has some at home)Aware to call if any changes in symptoms or increase in use of Albuterol- severe symptoms ER Congestion of nasal sinus 21530169 R09.81 671544 Continues to have cough-r/o chronic sinusitisS he must use her Symbicort correctly to see if this helps as well. Candidiasis of mouth 797 43681 B37.0 [id number] Nonspecifi c tuberculin test reaction 085807527 R76.11 64082 has been referred to infectious disease- [facility] an appointmen t immediatel y Ex-smoker 5073581 Z87.89 1 830390 Health Concerns Section Related Observation LastModified by Organization Detai ls LastModified Time None Recorded Concern Status LastModified by Organization Details LastModified Time None Recorded Advance Directives Directive None Recorded Payers Insurance Date Sequence Insurance Name Policy Number Policy Tang Covered Member ID Tang Member ID Guarantor Name 05/19/2024 1 [place] Dina Fish [id number] Dianne Fish 10/02/2024 1 [employer] - [employer] (MEDICARE REPLACEMENT/A DVANTAGE - HMO) Dina Fish [id number] Dina Fish Notes Date Note Type Note Provider Name and Address Organization Details Recorded Time 5 text/html DyspneaReported by PatientHPIFor quality, patient reportsdyspnea. For context, patient reportswith activity,after respiratory illness, andreflux. For aggravating factors, patient reportsactivity. For associated symptoms, patient reportspalpitations,fatigu e,coughing up sputum,dyspepsia, andhoarsenessbut reportsno chest pain,no orthopnea,no pnd,no fever,no chills,no wheezing,no dietary indiscretion,no hemoptysis, andno weight gain. For severity, patient reportssevere. For onset/timing, patient reportsdailyandduring daytime.hx of shwebutrjro-ldrnbflxdv-lvw had a cough sincehas tired various allergy med and nasal spraysshe notes several years ago had been told she might have asthma-last PFT done around 2 years ago noted normal per ptshe has a 15 year smoking hx of 3 ppdrarely uses albuterol Nery Daly NP [address], [place], [address], [employer] 05/19/2024 10:56:22 5 text/html COPDReported by PatientHPIFor associated symptoms, patient reportsdyspnea exertional,decrease in exercise capacity, andcough non productivebut reportsno snoring,no excessive daytime sleepiness,no arousals from sleep,no decrease in exercise capacity,no fatigue,no coughing up sputum,no fever,no wheezing,no weight loss, andno depression. For severity, patient reportsnot limiting. For onset/timing, patient reportschronic: slowly much worse. For context, patient reportscigarette smoking. For modifying factors, patient reportsrelieved with restandworse with exertion.PFT shows mild COPD-here for f/u for testing-TB was positive-has been ldmiosgs69 year 3 ppd smoker-stopped 30 years ago Nery Daly NP [address], [place], [address], [employer] 06/08/2024 12:26:11 5 text/html COPDReported by PatientHPIFor associated symptoms, patient reportsdyspnea exertional,decrease in exercise capacity, andcough non productivebut reportsno snoring,no excessive daytime sleepiness,no arousals from sleep,no decrease in exercise capacity,no fatigue,no coughing up sputum,no fever,no wheezing,no weight loss, andno depression. For severity, patient reportsnot limiting. For onset/timing, patient reportschronic: slowly much worse. For context, patient reportscigarette smoking. For modifying factors, patient reportsrelieved with restandworse with exertion.PFT shows mild COPD-here for f/u for testing-TB was positive-has been referred but has not set up and appointment-she notes she felt overwhelmed with all the testing she has been having done.15 year 3 ppd smoker-stopped 30 years agorupal is not using her Symbicort as directed due to cost-using rescue inhaler moreRupal has just finished a round of prednisone and z-pack with little improvement and was then placed on Cefdinir-currently taking-she notes little improvementno admissions since last visit Nery Daly NP [address] [facility], [facility] [address], [place], [address], [place] [facility] 10/05/2024 12:26:16 OBGyn Episode No OBEpisode recorded.
== END ==
LOC: ANHLAB 10:27
PROVIDERS: PCP Family Medicine; Visit Provider Physician Assistant Surgical
DX: H93.8X2 Other specified disorders of left ear (principal)
CPT/HCPCS: 88305; 88342